=== PATIENT | male | born 1960 | race Caucasian/White ===

== ENCOUNTER → 2020-04-02 14:14 | Outpatient (BNVA) | payer OTHER, SELFPAY | PROVIDERS: PCP Internal Medicine; Visit Provider Surgery | DX: Z76.89 Persons encountering health services in other specified circumstances (principal) ==

== ENCOUNTER 2020-04-11 07:00 | Day surgery (SDC) | payer OTHER, SELFPAY ==
[2020-04-04 10:59] VITALS: BMI 31.4
--- NOTE | 2020-04-09 15:51 | P.CONAN_ITS ---
Documented by User: Antoinette Alvarado 04/09/20 15:53 HPI - Anesthesia Eval Consult details Narrative: 59yo M for Hernia Repair Inguinal with mesh PMFSH Past Medical History Medical History Basal cell carcinoma GERD (gastroesophageal reflux disease) HTN (hypertension) Hypercholesterolemia Infected hernioplasty mesh Perforation of sigmoid colon due to diverticulitis Family History Family History Paternal Aunt History of lung cancer Paternal Uncle History of lung cancer Mother History of cervical cancer Surgical History Surgical History History of appendectomy (~1994) History of bowel resection (~10/14/16) History of colonoscopy (~10/18/18) History of left inguinal hernia repair (~1999) History of left knee surgery Social History Social History Are you a primary neonatal intensive care unit nurse to a significant other at home: No Do you presently have visiting nurse or other home services: No Alcohol intake: current Alcohol intake frequency: holidays/special occasions only Alcohol type: wine Smoking Status: Never smoker Use of substances other than those prescribed or required for medical reasons: No Substance Use Type Other:: Hx Chew tobacco- not for yrs Advance Directives: No Advance Directives Information Provided: No Advance Directives on File: No Recently lost weight without trying: No Meds Allergies Allergy/AdvReac Type Severity Reaction Status Date / Time Penicillins Allergy Mild THROAT Verified 04/11/20 07:30 SWELLING Home Medications Medication Instructions Recorded Confirmed Type atorvastatin 40 mg tablet 40 mg PO DAILY 04/02/20 04/04/20 History losartan 100 mg tablet 100 mg PO DAILY 04/02/20 04/04/20 History pantoprazole 40 mg tablet,delayed 40 mg PO DAILY 04/02/20 04/04/20 History release pentoxifylline 400 mg 400 mg PO TID 04/02/20 04/04/20 History tablet,extended release Exam Exam Date and Time: April 09, 2020 1551 Height,Weight and Vital Signs: Height 6 ft 2 in Weight 111.13 kg Pertinent Lab Results Pertinent Lab Results: Laboratory Tests 12/19/19 12/19/19 08:55 08:55 WBC 5.6 Hgb 14.5 Hct 45.0 Plt Count 243 Sodium 140 Potassium 4.0 Chloride 108 BUN 14 Creatinine 0.91 Assessment and Plan Assessment Anesthesia Assessment: Chart Reviewed Documented by User: Augusta Contreras 04/11/20 07:57 PMF Past Medical History Medical History Basal cell carcinoma GERD (gastroesophageal reflux disease) HTN (hypertension) Hypercholesterolemia Infected hernioplasty mesh Perforation of sigmoid colon due to diverticulitis Family History Family History Paternal Aunt History of lung cancer Paternal Uncle History of lung cancer Mother History of cervical cancer Surgical History Surgical History History of appendectomy (~1994) History of bowel resection (~10/14/16) History of colonoscopy (~10/18/18) History of left inguinal hernia repair (~1999) History of left knee surgery Social History Social History Are you a primary neonatal intensive care unit nurse to a significant other at home: No Do you presently have visiting nurse or other home services: No Alcohol intake: current Alcohol intake frequency: holidays/special occasions only Alcohol type: wine Smoking Status: Never smoker Use of substances other than those prescribed or required for medical reasons: No Substance Use Type Other:: Hx Chew tobacco- not for yrs Advance Directives: No Advance Directives Information Provided: No Advance Directives on File: No Recently lost weight without trying: No Meds Allergies Allergy/AdvReac Type Severity Reaction Status Date / Time Penicillins Allergy Mild THROAT Verified 04/11/20 07:30 SWELLING Home Medications Medication Instructions Recorded Confirmed Type atorvastatin 40 mg tablet 40 mg PO DAILY 04/02/20 04/04/20 History losartan 100 mg tablet 100 mg PO DAILY 04/02/20 04/04/20 History pantoprazole 40 mg tablet,delayed 40 mg PO DAILY 04/02/20 04/04/20 History release pentoxifylline 400 mg 400 mg PO TID 04/02/20 04/04/20 History tablet,extended release Exam Airway Mallampati Class: II TM Dist: >3cm Neck ROM: Full Assessment and Plan Assessment Anesthesia Assessment: Anesthesia Plan Discussed and Chart Reviewed Final Anesthetic Review NPO: Yes ASA Class: II Final Preanesthetic Review: No Changes in Pt Med Stat, Meds/Allgs Chart Reviewed, Consent Obtained/Reviewed and Anes Risks/Benef Reviewed Patient Risk: Intermediate Procedure Risk: Low Assessment/Block/Sedation in SS: Assess/Block/Sedation-SS Anesthetic Plan Anesthetic Plan: GA Disposition: Standard PACU
[2020-04-11 07:20] VITALS: BP 136/84; PULSE 57; RESP 16; TEMP 36.7; O2SAT 96
[2020-04-11] MEDS: vancomycin HCL 1,000 MG in 0.9 % Sodium Chloride 250 ML 270 MG IV (07:25)
[2020-04-11] MEDS: Lactated Ringers 1,000 ML 100 ML IVCONT (07:33)
--- NOTE | 2020-04-11 07:40 | MHC.SHP ---
Pre-Procedural Eval Section A The patient is an INPATIENT: No Changes since office visit: No Cold of Flu in the past 2 weeks, No New Medical Problems and No Changes in Medication The History & Physical has been completed within 30 days and I have reviewed it.: Yes Section B Chief Complaint: Right Inguinal Hernia Allergies: Allergies Allergy/AdvReac Type Severity Reaction Status Date / Time Penicillins Allergy Mild THROAT Verified 04/11/20 07:30 SWELLING Plan Diagnosis/Plan: Unchanged Patient has been examined and remains a candidate for the planned procedure
--- NOTE | 2020-04-11 08:40 | PM.OP ---
Brief Operative Note Date of procedure: 04/11/20 Pre-op diagnosis: RIGHT INGUINAL HERNIA Post-op diagnosis: same Procedure: REPAIR OF RIGHT INGUINAL HERNIA WITH MESH Implants: PHS EXTENDED LARGE Surgeon: Octavio Samuels MD Anesthesia: GLMA Estimated blood loss (mL): 5 Pathology: other (LIPOMA OF CORD) Condition: stable Disposition: PACU
[2020-04-11 08:45] VITALS: BP 134/77; PULSE 80; RESP 16; TEMP 36.1; O2SAT 93
[2020-04-11 08:50] VITALS: BP 137/79; PULSE 68; RESP 16; O2SAT 97
[2020-04-11 08:55] VITALS: BP 136/83; PULSE 62; RESP 17; O2SAT 98
--- NOTE | 2020-04-11 08:55 | P.OP_ITS ---
Operative Note Operative Note Narrative: Preop diagnosis: Right inguinal hernia Postoperative diagnosis: Same Procedure: Repair of right inguinal hernia with mesh Surgeon: Octavio Samuels MD Fish Rod Maker: None Anesthesia: General LMA indications for procedure: 59-year-old male presenting with a new onset lump in the right groin which increases in size with lifting and straining. On examination patient is found to have reducible right inguinal hernia which increases with Valsalva and reduces with light pressure. Operative findings: Patient found to have a moderate-size indirect right inguinal hernia. This was repaired using an extended PHS mesh. Specimen: Lipoma of the cord Estimated blood loss: 5 mL Complications: None Procedure details: Patient was brought to the OR placed in a supine position. After administering general anesthesia the patient's abdomen was prepped with ChloraPrep and draped in a sterile fashion. A surgical time-out was called the consent confirmed. Patient received preoperative antibiotics and Venodyne boots were placed. Local anesthesia consisting of 0.75% Sensorcaine with epinephrine was infiltrated over the right inguinal ligament. Incision was then made with a 15 blade carried out through subcutaneous tissue past Amos's fashion up to the external oblique aponeurosis. Additional local was placed below the aponeurosis. This was then incised with a scalpel in the direction of the fibers period was widened with Metzenbaum scissors. Spermatic cord was then dissected from the surrounding inguinal canal and retracted with a Corning drain. The floor of the inguinal canal was found to be intact but a moderate- size indirect inguinal hernia was identified. Fibers of the cremasteric muscle were and a lipoma of the cord identified. This was dissected down to the internal ring and ligated with 3-0 Polysorb suture. No hernia sac was identified. Attention was then directed to the floor of the inguinal canal. Fibers of the internal oblique aponeurosis and transversalis aponeurosis were incised between Allis clamps in the preperitoneal space entered. This was then widened with open Ray-Diana sponge. An extended large PHS mesh was then obtained. The circular underlay was placed into the preperitoneal space and the overlay secured to the pubic tubercle conjoined tendon and shelving edge of the inguinal ligament. A slit was made at the mesh at the internal ring and wrapped around the spermatic cord. This was then secured to the shelving edge of the inguinal ligament using a 0 Polysorb suture. The remainder of the mesh was placed below the external oblique aponeurosis. The wounds were then irrigated with saline solution and suctioned dry. External oblique aponeurosis was then closed using a running 2 0 Polysorb suture. Amos's fashion dermis reapproximated using interrupted 3 0 Polysorb suture. Skin was then closed using a running subcuticular 4-0 Polysorb suture. Sterile dressings consisting of Steri-Strips 2 x 2 gauze and Tegaderm were then applied. The patient tolerated the procedure well. Sponge, instrument, and needle counts reported as correct. The patient was transferred to PACU in stable condition.
[2020-04-11 09:00] VITALS: BP 131/68; PULSE 62; RESP 16; O2SAT 99
[2020-04-11 09:15] VITALS: BP 137/84; PULSE 62; RESP 17; TEMP 36.3; O2SAT 94
--- NOTE | 2020-04-11 09:48 | HO.POSTANES ---
Post Anesthesia Evaluation Post Anesthesia Evaluation Vital Signs: Vital Signs Temp Pulse Resp BP Pulse Ox 04/11/20 09:15 97.3 F 62 17 137/84 94 04/11/20 09:00 62 16 131/68 99 04/11/20 08:55 62 17 136/83 98 04/11/20 08:50 68 16 137/79 97 04/11/20 08:45 96.9 F 80 16 134/77 93 04/11/20 07:20 98.1 F 57 16 136/84 96 Anesthesia: General LMA Mental Status: Awake Pain Control: Satisfactory Nausea/Vomiting: None Hydration: Adequate Anesthesia-Related Issues: No Anes. Related Issues
== END 2020-04-11 23:59 | disposition home or self-care (01) ==
PROVIDERS: PCP Internal Medicine; Visit Provider Surgery
PROC: (CPT 49505; principal; 2020-04-11 09:00)
DX: K40.90 Unilateral inguinal hernia, without obstruction or gangrene, not specified as recurrent (principal); D17.6 Benign lipomatous neoplasm of spermatic cord; Z88.0 Allergy status to penicillin
CPT/HCPCS: 49505; 88304; C1781; J1100; J2405; J3010; J3370

== ENCOUNTER → 2020-04-19 09:15 | Outpatient (BNVA) | payer OTHER, SELFPAY | PROVIDERS: PCP Internal Medicine; Visit Provider Surgery | DX: Z76.89 Persons encountering health services in other specified circumstances (principal) ==

== ENCOUNTER → 2020-05-17 09:23 | Outpatient (BNVA) | payer OTHER, SELFPAY | PROVIDERS: PCP Internal Medicine; Referring Provider Internal Medicine; Visit Provider Surgery | DX: Z76.89 Persons encountering health services in other specified circumstances (principal) ==

== ENCOUNTER 2020-06-26 07:05 | Outpatient (REF) | payer OTHER, SELFPAY ==
[2020-06-26 08:02] LABS: Alanine Aminotransferase 24 U/L (0-40); Albumin Level 4.1 g/dL (3.5-5.0); Alkaline Phosphatase 56 U/L (39-117); Aspartate Amino Transferase 15 U/L (5-37); Bilirubin Direct 0.3 mg/dL (0.0-0.5); Bilirubin Total 0.6 mg/dL (0.0-1.0); Cholesterol 123 mg/dL; HDL Cholesterol 37 mg/dL; LDL Cholesterol Calculated 72 mg/dl; Total Protein 6.7 g/dL (6.5-8.0); Triglycerides 71 mg/dL
[2020-06-26 08:16] LABS: Reflex LDLD? No
== END 2020-06-26 07:06 | disposition home or self-care (01) ==
LOC: HO.LAB 07:05
PROVIDERS: Visit Provider Internal Medicine
DX: E78.00 Pure hypercholesterolemia, unspecified (principal)
CPT/HCPCS: 36415; 80061; 80076

== ENCOUNTER 2020-12-30 10:13 | Outpatient (REF) | payer OTHER, SELFPAY ==
[2020-12-30 10:15] LABS: MANUAL DIFF FLAG NO
[2020-12-30 10:22] LABS: Basophils Percent Auto 0.5 % (0-2); Eosinophils Absolute Auto 0.2 X10*3/uL (0.0-0.4); Eosinophils Percent Auto 2.4 % (0-4); Hematocrit 45.4 % (42-52); Hemoglobin 14.9 g/dl (14.0-18.0); Imm Gran Abs Auto 0.03 X10*3/uL (0.00-0.03); Imm Gran Pct Auto 0.4 % (0.0-0.4); Lymphocytes Absolute Auto 1.3 X10*3/uL (1.2-4.9); Lymphocytes Percent Auto 16.9 % (20-40); Mean Corpuscular HGB Conc 32.8 g/dl (31.0-36.0); Mean Corpuscular Hemoglobin 29.1 pg (27.0-33.0); Mean Corpuscular Volume 88.7 fL (80-98); Monocytes Absolute Auto 0.8 X10*3/uL (0.1-1.2); Monocytes Percent Auto 10.9 % (2-11); Neutrophils Absolute Auto 5.3 X10*3/uL (2.0-8.3); Neutrophils Percent Auto 68.9 % (45-73); Platelet Count 247 X10*3/uL (160-400); Red Blood Count 5.12 X10*6/uL (4.60-5.80); Red Cell Distribution Width 12.9 % (11.0-16.0); White Blood Count 7.6 X10*3/uL (4.8-10.8)
[2020-12-30 11:17] LABS: Alanine Aminotransferase 15 U/L (0-40); Albumin Level 3.8 g/dL (3.5-5.0); Alkaline Phosphatase 58 U/L (39-117); Anion Gap 11 (12-20); Aspartate Amino Transferase 13 U/L (5-37); Bilirubin Total 0.5 mg/dL (0.0-1.0); Blood Urea Nitrogen 17 mg/dL (9-16); Calcium 8.8 mg/dL (8.4-10.2); Carbon Dioxide 26 mmol/L (22-29); Chloride 108 mmol/L (96-108); Cholesterol 117 mg/dL; Estimated Glomerular Filt Rate > 60; Glucose Fasting 98 mg/dL (60-99); HDL Cholesterol 35 mg/dL; LDL Cholesterol Calculated 75 mg/dl; Potassium 4.1 mmol/L (3.3-5.1); Sodium 141 mmol/L (135-145); Total Protein 6.2 g/dL (6.5-8.0); Triglycerides 38 mg/dL
[2020-12-30 11:26] LABS: Reflex LDLD? No
[2020-12-30 11:42] LABS: PSA,Total (Free>4and<10) 0.44 ng/mL (0.00-4.00)
== END 2020-12-30 10:14 | disposition home or self-care (01) ==
LOC: HO.LNP 10:13
PROVIDERS: Visit Provider Internal Medicine
DX: Z00.00 Encounter for general adult medical examination without abnormal findings (principal); Z12.5 Encounter for screening for malignant neoplasm of prostate; R94.5 Abnormal results of liver function studies; I10 Essential (primary) hypertension
CPT/HCPCS: 80053; 80061; 84153; 85025

== ENCOUNTER 2021-01-02 14:07 | Outpatient (REF) | payer OTHER, SELFPAY ==
[2021-01-02 14:36] LABS: Glucose Urine UA NEG (NEG); Leukocyte Esterase Urine NEG (NEG); Nitrite Urine NEG (NEG); PH 5.5 (5.0-8.0); Specific Gravity - Urine >= 1.030 (1.005-1.025); Urine Blood NEG (NEG); Urine Ketones NEG (NEG); Urine Protein NEG (NEG-TRACE)
[2021-01-02 14:39] LABS: Appearance Urine CLEAR; Color Urine YELLOW
== END 2021-01-02 14:08 | disposition home or self-care (01) ==
LOC: HO.LNP 14:07
PROVIDERS: Visit Provider Internal Medicine
DX: Z00.00 Encounter for general adult medical examination without abnormal findings (principal)
CPT/HCPCS: 81003

== ENCOUNTER 2021-06-19 11:29 | Outpatient (REF) | payer OTHER, SELFPAY ==
[2021-06-19 14:29] LABS: Binax Internal Control QC Valid; Binax Lot number: 9864; Binax Now Covid-19 Ag Negative (Negative)
== END 2021-06-19 11:30 | disposition home or self-care (01) ==
LOC: HO.LAB 11:29
PROVIDERS: Visit Provider Internal Medicine
DX: Z20.822 Contact with and (suspected) exposure to COVID-19 (principal)
CPT/HCPCS: C9803

== ENCOUNTER 2021-07-03 10:46 | Outpatient (REF) | payer OTHER, SELFPAY ==
[2021-07-03 11:58] LABS: Alanine Aminotransferase 29 U/L (0-40); Albumin Level 4.1 g/dL (3.5-5.0); Alkaline Phosphatase 69 U/L (39-117); Aspartate Amino Transferase 18 U/L (5-37); Bilirubin Direct 0.3 mg/dL (0.0-0.5); Bilirubin Total 0.6 mg/dL (0.0-1.0); Cholesterol 126 mg/dL; HDL Cholesterol 35 mg/dL; LDL Cholesterol Calculated 78 mg/dl; Triglycerides 66 mg/dL
[2021-07-03 12:06] LABS: Reflex LDLD? No
== END 2021-07-03 10:47 | disposition home or self-care (01) ==
LOC: HO.LNP 10:46
PROVIDERS: Visit Provider Internal Medicine
DX: E78.00 Pure hypercholesterolemia, unspecified (principal)
CPT/HCPCS: 80061; 80076

== ENCOUNTER 2021-12-26 10:48 | Outpatient (REF) | payer OTHER, SELFPAY ==
[2021-12-26 10:52] LABS: MANUAL DIFF FLAG NO
[2021-12-26 11:04] LABS: Basophils Absolute Auto 0.1 X10*3/uL (0.0-0.2); Basophils Percent Auto 0.7 % (0-2); Eosinophils Absolute Auto 0.2 X10*3/uL (0.0-0.4); Eosinophils Percent Auto 2.5 % (0-4); Hematocrit 46.3 % (42.0-52.0); Hemoglobin 15.4 g/dl (14.0-18.0); Imm Gran Abs Auto 0.02 X10*3/uL (0.00-0.03); Imm Gran Pct Auto 0.3 % (0.0-0.4); Lymphocytes Absolute Auto 1.3 X10*3/uL (1.2-4.9); Mean Corpuscular HGB Conc 33.3 g/dl (31.0-36.0); Mean Corpuscular Hemoglobin 29.8 pg (27.0-33.0); Mean Corpuscular Volume 89.6 fL (80.0-98.0); Monocytes Absolute Auto 0.8 X10*3/uL (0.1-1.2); Monocytes Percent Auto 11.6 % (2-11); Neutrophils Absolute Auto 4.8 x10*3/uL (2.0-8.3); Neutrophils Percent Auto 66.9 % (45-73); Platelet Count 259 X10*3/uL (160-400); Red Blood Count 5.17 X10*6/uL (4.60-5.80); White Blood Count 7.1 X10*3/uL (4.8-10.8)
[2021-12-26 11:12] LABS: Appearance Urine CLEAR; Color Urine YELLOW; Glucose Urine UA NEG (NEG); Leukocyte Esterase Urine NEG (NEG); Nitrite Urine NEG (NEG); PH 5.5 (5.0-8.0); Urine Blood TRACE (NEG); Urine Ketones NEG (NEG); Urine Protein NEG (NEG-TRACE)
[2021-12-26 11:58] LABS: Alanine Aminotransferase 22 U/L (0-40); Alkaline Phosphatase 67 U/L (39-117); Anion Gap 12 (12-20); Aspartate Amino Transferase 15 U/L (5-37); Bilirubin Total 0.6 mg/dL (0.0-1.0); Blood Urea Nitrogen 27 mg/dL (9-16); Calcium 8.8 mg/dL (8.4-10.2); Carbon Dioxide 23 mmol/L (22-29); Chloride 108 mmol/L (96-108); Cholesterol 125 mg/dL; Estimated Glomerular Filt Rate > 60; Glucose Fasting 77 mg/dL (60-99); HDL Cholesterol 31 mg/dL; LDL Cholesterol Calculated 70 mg/dl; Potassium 4.3 mmol/L (3.3-5.1); Sodium 139 mmol/L (135-145); Total Protein 6.6 g/dL (6.5-8.0); Triglycerides 123 mg/dL
[2021-12-26 12:02] LABS: RBC Urine 0 /HPF (0); WBC Urine 0 /HPF (0-4)
[2021-12-26 12:08] LABS: PSA,Total (Free>4and<10) 0.58 ng/mL (0.00-4.00)
== END 2021-12-26 10:49 | disposition home or self-care (01) ==
LOC: HO.LNP 10:48
PROVIDERS: Visit Provider Internal Medicine
DX: Z00.00 Encounter for general adult medical examination without abnormal findings (principal); Z12.5 Encounter for screening for malignant neoplasm of prostate; I10 Essential (primary) hypertension; E78.00 Pure hypercholesterolemia, unspecified
CPT/HCPCS: 80053; 80061; 81001; 84153; 85025

== ENCOUNTER 2022-03-05 11:53 | Outpatient (REF) | payer OTHER, SELFPAY ==
[2022-03-05 13:00] LABS: Blood Urea Nitrogen 18 mg/dL (9-16); Estimated Glomerular Filt Rate > 60
== END 2022-03-05 11:54 | disposition home or self-care (01) ==
LOC: HO.LNP 11:53
PROVIDERS: Visit Provider Internal Medicine
DX: R79.9 Abnormal finding of blood chemistry, unspecified (principal)
CPT/HCPCS: 82565; 84520

== ENCOUNTER 2022-07-21 10:58 | Outpatient (REF) | payer OTHER, SELFPAY ==
[2022-07-21 11:37] LABS: Alanine Aminotransferase 26 U/L (0-40); Albumin Level 3.9 g/dL (3.5-5.0); Alkaline Phosphatase 76 U/L (39-117); Aspartate Amino Transferase 15 U/L (5-37); Bilirubin Direct 0.2 mg/dL (0.0-0.5); Bilirubin Total 0.6 mg/dL (0.0-1.0); Cholesterol 128 mg/dL; HDL Cholesterol 33 mg/dL; LDL Cholesterol Calculated 80 mg/dl; Total Protein 6.4 g/dL (6.5-8.0); Triglycerides 79 mg/dL
[2022-07-21 11:52] LABS: Reflex LDLD? No
== END 2022-07-21 10:59 | disposition home or self-care (01) ==
LOC: HO.LNP 10:58
PROVIDERS: Visit Provider Internal Medicine
DX: E78.00 Pure hypercholesterolemia, unspecified (principal)
CPT/HCPCS: 80061; 80076

== ENCOUNTER 2022-12-29 10:45 | Outpatient (REF) | payer OTHER, SELFPAY ==
[2022-12-29 11:08] LABS: Basophils Percent Auto 0.2 % (0-2); Eosinophils Absolute Auto 0.1 X10*3/uL (0.0-0.4); Eosinophils Percent Auto 0.7 % (0-4); Hematocrit 47.7 % (42.0-52.0); Hemoglobin 15.6 g/dl (14.0-18.0); Imm Gran Abs Auto 0.09 X10*3/uL (0.00-0.03); Imm Gran Pct Auto 0.5 % (0.0-0.4); Lymphocytes Absolute Auto 1.1 X10*3/uL (1.2-4.9); Lymphocytes Percent Auto 6.3 % (20-40); MANUAL DIFF FLAG SCAN; Mean Corpuscular HGB Conc 32.7 g/dl (31.0-36.0); Mean Corpuscular Hemoglobin 29.5 pg (27.0-33.0); Mean Corpuscular Volume 90.2 fL (80.0-98.0); Mean Platelet Volume 10.1 fL (9.4-12.4); Monocytes Absolute Auto 1.9 X10*3/uL (0.1-1.2); Monocytes Percent Auto 10.9 % (2-11); Neutrophils Absolute Auto 14.1 x10*3/uL (2.0-8.3); Neutrophils Percent Auto 81.4 % (45-73); Platelet Count 272 X10*3/uL (160-400); Red Blood Count 5.29 X10*6/uL (4.60-5.80); Red Cell Distribution Width 13.2 % (11.0-16.0); SCAN SMEAR FLAG 1; White Blood Count 17.4 X10*3/uL (4.8-10.8)
[2022-12-29 11:10] LABS: Appearance Urine Clear; Color Urine Dark Yellow; Glucose Urine UA Negative (Negative); Leukocyte Esterase Urine Trace (Negative); Nitrite Urine Negative (Negative); Specific Gravity - Urine 1.025 (1.005-1.025); UMIC TRIGGER UACC YES; Urine Blood Negative (Negative); Urine Ketones 15 mg/dL (Negative); Urine Protein 30 (1+) mg/dL (Neg-Trace)
[2022-12-29 11:34] LABS: SLIDE REVIEW VERIFIED
[2022-12-29 11:39] LABS: Alanine Aminotransferase 19 U/L (0-40); Albumin Level 3.9 g/dL (3.5-5.0); Alkaline Phosphatase 67 U/L (39-117); Anion Gap 10 (12-20); Aspartate Amino Transferase 13 U/L (5-37); Bilirubin Total 1.8 mg/dL (0.0-1.0); Blood Urea Nitrogen 14 mg/dL (9-16); Calcium 9.7 mg/dL (8.4-10.2); Carbon Dioxide 27 mmol/L (22-29); Chloride 103 mmol/L (96-108); Cholesterol 97 mg/dL; Estimated Glomerular Filt Rate > 60; Glucose Fasting 96 mg/dL (60-99); HDL Cholesterol 39 mg/dL; LDL Cholesterol Calculated 50 mg/dl; Potassium 4.3 mmol/L (3.3-5.1); Sodium 136 mmol/L (135-145); Total Protein 7.6 g/dL (6.5-8.0); Triglycerides 44 mg/dL
[2022-12-29 11:48] LABS: PSA,Total (Free>4and<10) 0.47 ng/mL (0.00-4.00)
[2022-12-29 11:49] LABS: Bacteria Urine None Seen (None Seen); RBC Urine 0-2 /HPF (0-2); Squamous Epithelial Cell Urine 0-2 /HPF (0-2); WBC Urine 0-5 /HPF (0-5)
== END 2022-12-29 10:46 | disposition home or self-care (01) ==
LOC: HO.LNP 10:45
PROVIDERS: Visit Provider Internal Medicine
DX: Z00.00 Encounter for general adult medical examination without abnormal findings (principal); Z12.5 Encounter for screening for malignant neoplasm of prostate; E78.00 Pure hypercholesterolemia, unspecified; I10 Essential (primary) hypertension
CPT/HCPCS: 80053; 80061; 81001; 84153; 85025

== ENCOUNTER 2022-12-31 08:19 | Outpatient (AMB) | payer OTHER, SELFPAY ==
--- NOTE | 2022-12-31 08:27 | MHC.OFFVIS ---
Intake Vital Signs 12/31/22 08:37 Height 6 ft 2 in Weight 264 lb 15.93 oz BMI 34.0 BP 128/82 Blood Pressure Location Lt brachial Position Sitting Intake Visit Reasons: gallstones Intake Note: Patient is seen in office for evaluation and treatment of gallstones. Patient c/o: symptoms on and off for years, been getting worse, admits to nausea, vomit, pain in the upper chest, had imaging and blood work done Web Specialist Required: No Accompanied by: Self / Same As Patient Allergies Penicillins Allergy (Mild, Verified 12/31/22 08:31) THROAT SWELLING Medication List - Last Reconciled 12/31/22 by Octavio Samuels MD atorvastatin 40 mg PO DAILY losartan 100 mg PO DAILY pantoprazole 40 mg PO DAILY pentoxifylline ER 400 mg PO TID HPI HPI Comments History of Present Illness Details 62-year-old male patient presenting with complaints of right upper quadrant epigastric abdominal pain intermittently for several months. His most recent episode occurred on 12/26/2022. He was evaluated at [facility] and was noted to have an elevated WBC and mildly elevated bilirubin level. Workup with CT and ultrasound confirmed gallstones without evidence of acute cholecystitis. He continues to have abdominal pain in the epigastrium and right upper quadrant. He denies fever or chills. He presents to discuss possible cholecystectomy. [facility] Medical History Basal cell carcinoma GERD (gastroesophageal reflux disease) HTN (hypertension) Hypercholesterolemia Infected hernioplasty mesh Perforation of sigmoid colon due to diverticulitis Surgical History History of appendectomy (~1994) History of bowel resection (~10/14/16) History of colonoscopy (~10/18/18) History of left inguinal hernia repair (~1999) History of left knee surgery History of right inguinal hernia repair Family History Paternal Aunt History of lung cancer Paternal Uncle History of lung cancer Mother History of cervical cancer Social History Are you a primary customer care specialist to a significant other at home: No Do you presently have visiting nurse or other home services: No Alcohol intake: current Alcohol intake frequency: holidays/special occasions only Alcohol type: wine Review of Systems Const All systems reviewed & are unremarkable except as noted in HPI and below Reports poor appetite and Reports weight loss GI Reports abdominal pain, Reports nausea and Reports vomiting Details: Dark urine Skin/Breast Reports system reviewed and no additional complaints, except as documented Physical Exam Vital Signs: Last Vital Signs BP 128/82 12/31/22 08:37 BMI result Body Mass Index 34.0 Const General: cooperative and no acute distress Nutritional Appearance: well nourished Orientation/consciousness: patient oriented x3 Limitations: no limitations HEENT Head: Yes normocephalic and Yes atraumatic Ears: hearing grossly normal bilaterally Resp Effort & Inspection: normal respiratory effort, no audible wheezes, no cough and no respiratory distress Cardio Jugular venous distension: no JVD GI Inspection: Yes normal to inspection Palpation (GI): Soft to palpation, Tenderness to palpation present (GI) in the RUQ and Garland's sign positive, no guarding and not rigid Skin Other: Warm, dry, no rash Neuro General: patient oriented x3 Extrem General: Yes normal to inspection and Yes no clubbing, cyanosis or edema Assessment & Plan Assessment & Plan (1) Cholecystitis, acute with cholelithiasis: Code(s): K80.00 - Calculus of gallbladder with acute cholecystitis without obstruction Plan 62-year-old male patient presenting with progressive abdominal pain in the right upper quadrant and epigastrium occurring with fatty food intake. Workup revealed an elevated WBC and bilirubin level (mildly elevated) with gallstones within the gallbladder. Findings on examination revealed tenderness in the right upper quadrant with a positive Garland sign suggestive of acute cholecystitis. I recommended a laparoscopic or possible open cholecystectomy. After discussion of the procedure, risks, and alternatives, he consents to the laparoscopic or possible open cholecystectomy. He will be scheduled at his earliest convenience. Coding Level of Care Code Est Pt Level 4 (65240) Diagnoses Cholecystitis, acute with cholelithiasis K80.00
[2022-12-31 08:37] VITALS: BP 128/82; BMI 34.0
== END 2022-12-31 08:42 | disposition home or self-care (01) ==
PROVIDERS: PCP Internal Medicine; Visit Provider Surgery
DX: K80.00 Calculus of gallbladder with acute cholecystitis without obstruction (principal)
CPT/HCPCS: 99213

== ENCOUNTER → 2022-12-31 08:19 | Outpatient (BNVA) | payer OTHER, SELFPAY | PROVIDERS: PCP Internal Medicine; Visit Provider Surgery ==

== ENCOUNTER 2023-01-04 09:38 | Day surgery (SDC) | payer OTHER, SELFPAY ==
--- NOTE | 2023-01-01 09:36 | HO.ANESPROP2 ---
HPI - Anesthesia Eval Consult details Narrative: 62yo M for Cholecystectomy Laparoscopic, possible open PMFSH Active Problems Active Problems: All Active Problems (Updated 12/31/22 @ 08:49 by Octavio Samuels MD) Cholecystitis, acute with cholelithiasis (Acute) Right inguinal hernia (Acute) Past Medical History Medical History Basal cell carcinoma GERD (gastroesophageal reflux disease) HTN (hypertension) Hypercholesterolemia Infected hernioplasty mesh Perforation of sigmoid colon due to diverticulitis Family History Family History Paternal Aunt History of lung cancer Paternal Uncle History of lung cancer Mother History of cervical cancer Surgical History Surgical History History of appendectomy (~1994) History of bowel resection (~10/14/16) History of colonoscopy (~10/18/18) History of left inguinal hernia repair (~1999) History of left knee surgery History of right inguinal hernia repair Social History Social History Are you a primary ambulatory care coordinator to a significant other at home: No Do you presently have visiting nurse or other home services: No Alcohol intake: current Alcohol intake frequency: holidays/special occasions only Alcohol type: wine Meds Allergies Allergy/AdvReac Type Severity Reaction Status Date / Time Penicillins Allergy Mild THROAT Verified 12/31/22 08:31 SWELLING Home Medications Medication Instructions Recorded Confirmed Last Taken Type atorvastatin 40 mg tablet 40 mg PO DAILY 04/02/20 12/31/22 Unknown History losartan 100 mg tablet 100 mg PO DAILY 04/02/20 12/31/22 04/11/20 06:30 History pantoprazole 40 mg tablet,delayed 40 mg PO DAILY 04/02/20 12/31/22 04/11/20 06:30 History release pentoxifylline 400 mg 400 mg PO TID 04/02/20 05/17/20 Unknown History tablet,extended release Exam Exam Date and Time: January 01, 2023 0936 Pertinent Lab Results Pertinent Lab Results: Laboratory Tests 12/29/22 12/29/22 07:30 07:30 WBC 17.4 H Hgb 15.6 Hct 47.7 Plt Count 272 Sodium 136 Potassium 4.3 Chloride 103 Carbon Dioxide 27 BUN 14 Creatinine 1.17 Assessment and Plan Assessment Anesthesia Assessment: Chart Reviewed
[2023-01-04] VITALS (18 sets, daily range): BP systolic 136–154; BP diastolic 72–89; PULSE 73–86; RESP 16–18; TEMP 36.6–36.9; O2SAT 94–97; BMI 33.9
--- NOTE | 2023-01-04 10:24 | PC.NURSE ---
report given to judith purdy rn at this time.
[2023-01-04] MEDS: Lactated Ringers 1,000 ML 100 ML IVCONT (10:29)
--- NOTE | 2023-01-04 11:50 | P.CONAN_ITS ---
[facility] Active Problems Active Problems: All Active Problems (Updated 12/31/22 @ 08:49 by Octavio Samuels MD) Cholecystitis, acute with cholelithiasis (Acute) Right inguinal hernia (Acute) Past Medical History Medical History Basal cell carcinoma GERD (gastroesophageal reflux disease) HTN (hypertension) Hypercholesterolemia Infected hernioplasty mesh Perforation of sigmoid colon due to diverticulitis Family History Family History Paternal Aunt History of lung cancer Paternal Uncle History of lung cancer Mother History of cervical cancer Family history of problems with anesthesia: No Surgical History Surgical History History of appendectomy (~1994) History of bowel resection (~10/14/16) History of colonoscopy (~10/18/18) History of left inguinal hernia repair (~1999) History of left knee surgery History of right inguinal hernia repair Social History Social History Are you a primary intensive care medicine specialist to a significant other at home: No Do you presently have visiting nurse or other home services: No Alcohol intake: current Alcohol intake frequency: holidays/special occasions only Alcohol type: wine Patient Tobacco Use Status: Current someday Tobacco user Tobacco use type: Cigar Meds Allergies Allergy/AdvReac Type Severity Reaction Status Date / Time Penicillins Allergy Mild THROAT Verified 01/04/23 10:04 SWELLING Active Medications: Current Medications Fentanyl (Fentanyl Citrate/Pf 100 Mcg/2 Ml Vial) 25 mcg IVPUSH Q5M PRN; Protocol PRN Reason: Pain, Moderate(Pain Scale 4-6) Lactated Ringer's (Lr) 1,000 mls @ 100 mls/hr IVCONT .Q10H VANESSA Last Admin: 01/04/23 10:29 Dose: 100 mls/hr Ondansetron HCl (Ondansetron Hcl 4 Mg/2 Ml Vial) 4 mg IVPUSH ONCE PRN PRN Reason: Nausea and Vomiting Oxycodone HCl (Oxycodone Hcl Immed Release 5 Mg Tablet) 5 mg PO ONCE PRN PRN Reason: Pain, Severe (Pain Scale 7-10) Home Medications Medication Instructions Recorded Confirmed Last Taken Type atorvastatin 40 mg tablet 40 mg PO DAILY 04/02/20 01/04/23 01/04/23 History losartan 100 mg tablet 100 mg PO DAILY 04/02/20 01/04/23 01/04/23 History pantoprazole 40 mg tablet,delayed 40 mg PO DAILY 04/02/20 01/04/23 01/04/23 History release pentoxifylline 400 mg 400 mg PO TID 04/02/20 01/04/23 01/04/23 History tablet,extended release Exam Exam Date and Time: January 04, 2023 1150 Height,Weight and Vital Signs: Height 6 ft 2 in Weight 119.748 kg Last Vital Signs Temp 98.1 F 01/04/23 10:07 Pulse 76 01/04/23 10:07 Resp 18 01/04/23 10:07 BP 149/89 H 01/04/23 10:07 Pulse Ox 97 01/04/23 10:07 O2 Del Method Room Air 01/04/23 10:07 Airway Mallampati Class: IV TM Dist: >3cm Neck ROM: Full Loose/Missing/Broken Teeth: No Heart: rrr Lungs: clear Assessment and Plan Final Anesthetic Review Family History of Problems with Anesthesia: No NPO: Yes ASA Class: II Final Preanesthetic Review: No Changes in Pt Med Stat, Meds/Allgs Chart Reviewed, Consent Obtained/Reviewed and Anes Risks/Benef Reviewed Patient Risk: Intermediate Procedure Risk: Intermediate Anesthetic Plan Anesthetic Plan: GA Disposition: Standard PACU
--- NOTE | 2023-01-04 12:00 | MHC.SHP ---
Pre-Procedural Eval Section A Date of Service: 01/04/23 The patient is an INPATIENT: No Changes since office visit: Yes Patient answered all questions; No Cold of Flu in the past 2 weeks, No New Medical Problems and No Changes in Medication The History & Physical has been completed within 30 days and I have reviewed it.: Yes Section B Chief Complaint: Calculus of gallbladder with acute cholecystitis Allergies: Allergies Allergy/AdvReac Type Severity Reaction Status Date / Time Penicillins Allergy Mild THROAT Verified 01/04/23 10:04 SWELLING Plan Diagnosis/Plan: Unchanged I have reviewed the history and physical and performed a pertinent physical examination on my patient. No changes have occurred unless specified. Time Spent With Patient Time: Total time managing care of this patient today ____ minutes.
--- NOTE | 2023-01-04 12:39 | W.PM.OPN ---
Operative Note Operative Note Date of Service: 01/04/23 Narrative: Preoperative diagnosis: Acute cholecystitis, cholelithiasis Postoperative diagnosis: Same Procedure: Laparoscopic cholecystectomy Surgeon: Octavio Samuels MD Shipping Inspector: SUKHWINDER Inman Anesthesia: General endotracheal Indications for procedure: 62-year-old male patient presenting with acute onset of abdominal pain in the right upper quadrant and epigastrium radiating to the back associated with fatty food intake. Patient was evaluated emergency department. An ultrasound the abdomen confirmed gallstones within the gallbladder. Laboratories revealed an elevated WBC. Presents today for laparoscopic cholecystectomy. Operative findings: Acutely inflamed gallbladder with thickened gallbladder wall and evident rupture of the gallbladder wall into the liver. Specimen: gallbladder Estimated blood loss: 25 mL Complications: None Procedure details: Patient was brought to the OR and placed in a supine position. After administering general anesthesia the patient's abdomen was prepped with ChloraPrep and draped in a sterile fashion. Local anesthesia consisting of 0.5% Sensorcaine without epinephrine was infiltrated in a periumbilical region. A 5 mm incision was made above the umbilicus in a transverse fashion. The Veress needle was then inserted while elevating abdominal cavity with towel clips. After positive drop test the abdomen was insufflated to a pressure of 15 mm of mercury. The Veress needle was then removed and a 5 mm trocar inserted. The camera was inserted in the abdomen explored. A 12 mm trocar was then placed in the epigastrium. Two 5 mm trocars placed in the right upper quadrant by the sales assistants and salespersons. The patient was placed in reverse Trendelenburg positioning and rotated to the left. The gallbladder was grasped with the fundus and retracted cephalad by the sales assistants and salespersons. The infundibulum was then grasped and retracted away from the liver bed, also by the sales assistants and salespersons. The Dolphin dissected was then used by the surgeon to dissect the peritoneum off the infundibulum to reveal the junction with the cystic duct. Cystic artery was noted slightly medial and posterior to the cystic duct. After obtaining a critical view the cystic duct was doubly clipped and divided. The cystic artery was then doubly clipped and divided. The gallbladder was then dissected off the liver bed using electrocautery with an L hook. Hemostasis was assured all times using the electrocautery and Surgicel along the liver bed. When the gallbladder is completely dissected off the liver bed was placed in an Endo-Catch bag and brought out through the epigastric incision. The gallbladder was sent to pathology for further examination. The abdomen was then re-examined. The liver bed was irrigated and suctioned dry. No bleeding or bile leak could be identified. CO2 was then evacuated and all trocars removed. Fascia was closed at the epigastric incision using a [id number] 0 Polysorb suture. Skin was closed in all incisions using a subcuticular 4 0 Polysorb suture by both the surgeon and sales assistants and salespersons. Sterile dressings consisting of Steri-Strips, 2 x 2 gauze, and Tegaderm were then applied. The patient tolerated the procedure well. Sponge instrument and needle counts reported as correct. The patient was transferred to PACU in stable condition.
[2023-01-04] MEDS: oxyCODONE HCl Immed Release 5 MG TABLET PO (14:05)
[2023-01-04] MEDS: fentaNYL citrate/PF 100 MCG/2 ML VIAL 25 MCG IVPUSH ×4 (14:06→14:45)
[2023-01-04] MEDS: Acetaminophen 1,000 MG/100 ML PIGGYBACK 400 MG IV (14:40)
[2023-01-04] MEDS: ondansetron HCL 4 MG/2 ML VIAL IVPUSH (16:37)
== END 2023-01-04 17:11 | disposition home or self-care (01) ==
PROVIDERS: PCP Internal Medicine; Visit Provider Surgery
PROC: 0FT44ZZ Resection of Gallbladder, Percutaneous Endoscopic Approach (ICD-10-PCS; CPT 47562; principal; 2023-01-04 11:50)
DX: K80.12 Calculus of gallbladder with acute and chronic cholecystitis without obstruction (principal); K82.A1 Gangrene of gallbladder in cholecystitis; K21.9 Gastro-esophageal reflux disease without esophagitis; I10 Essential (primary) hypertension; Z90.49 Acquired absence of other specified parts of digestive tract; Z87.19 Personal history of other diseases of the digestive system; Z79.899 Other long term (current) drug therapy; Z88.0 Allergy status to penicillin; F17.290 Nicotine dependence, other tobacco product, uncomplicated
CPT/HCPCS: 47562; 88304; J0131; J0330; J1100; J2250; J2405; J2550; J2795; J3010

== ENCOUNTER → 2023-01-04 09:38 | Outpatient (BNV) | payer OTHER, SELFPAY | PROVIDERS: PCP Internal Medicine; Visit Provider Surgery | DX: K80.00 Calculus of gallbladder with acute cholecystitis without obstruction (principal) | CPT/HCPCS: 47562 ==

== ENCOUNTER 2023-01-14 13:11 | Outpatient (AMB) | payer OTHER, SELFPAY ==
--- NOTE | 2023-01-14 13:19 | MHC.OFFVIS ---
Intake Vital Signs 01/14/23 13:22 Height 6 ft 2 in Weight 261 lb BMI 33.5 BP 127/75 Blood Pressure Location Lt brachial Position Sitting Pulse 75 Intake Visit Reasons: S/P lap yohana Intake Note: Patient is seen in office for post op assessment post laparoscopic cholecystectomy. 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 He tolerated the procedure well and feels well today. He denies any nausea, vomiting, fever or chills. He has minimal tenderness at the epigastric incision. [facility] Medical History Basal cell carcinoma GERD (gastroesophageal reflux disease) HTN (hypertension) Hypercholesterolemia Infected hernioplasty mesh Perforation of sigmoid colon due to diverticulitis Surgical History History of appendectomy (1994) History of bowel resection (10/14/16) History of colonoscopy (10/18/18) History of left inguinal hernia repair (1999) History of left knee surgery History of right inguinal hernia repair (01/04/23) Family History Paternal Aunt History of lung cancer Paternal Uncle History of lung cancer Mother History of cervical cancer Social History Are you a primary care support representative to a significant other at home: No Do you presently have visiting nurse or other home services: No Alcohol intake: current Alcohol intake frequency: holidays/special occasions only Alcohol type: wine Patient Tobacco Use Status: Current someday Tobacco user Tobacco use type: Cigar Physical Exam Vital Signs: Last Vital Signs Pulse 75 01/14/23 13:22 BP 127/75 01/14/23 13:22 BMI result Body Mass Index 33.5 Const General: no acute distress Nutritional Appearance: well nourished Orientation/consciousness: patient oriented x3 Limitations: no limitations Resp Effort & Inspection: normal respiratory effort GI Other: Trocar incisions are clean, dry, and intact without redness or discharge. No hernia noted with Valsalva maneuvers. Skin Other: Warm, dry, no rash, normal color Neuro General: patient oriented x3 Assessment & Plan Assessment & Plan (1) Cholecystitis, acute with cholelithiasis: Code(s): K80.00 - Calculus of gallbladder with acute cholecystitis without obstruction Plan 62-year-old male patient status post laparoscopic cholecystectomy for acute cholecystitis due to cholelithiasis. He tolerated the procedure well and his wounds are healing nicely. She should continue to avoid lifting greater than 10 lb for the next week. He should follow up as needed. Coding Level of Care Code Global (05551) Diagnoses Cholecystitis, acute with cholelithiasis K80.00
[2023-01-14 13:22] VITALS: BP 127/75; PULSE 75; BMI 33.5
== END 2023-01-14 13:38 | disposition home or self-care (01) ==
PROVIDERS: PCP Internal Medicine; Visit Provider Surgery
DX: K80.00 Calculus of gallbladder with acute cholecystitis without obstruction (principal)
CPT/HCPCS: 99024

== ENCOUNTER → 2023-01-14 13:11 | Outpatient (BNVA) | payer OTHER, SELFPAY | PROVIDERS: PCP Internal Medicine; Visit Provider Surgery ==

== ENCOUNTER 2023-07-30 07:34 | Outpatient (REF) | payer OTHER, SELFPAY ==
[2023-07-30 08:59] LABS: Alanine Aminotransferase 30 U/L (0-40); Alkaline Phosphatase 66 U/L (39-117); Aspartate Amino Transferase 19 U/L (5-37); Bilirubin Direct 0.3 mg/dL (0.0-0.5); Bilirubin Total 0.6 mg/dL (0.0-1.0); Cholesterol 128 mg/dL (<200); HDL Cholesterol 35 mg/dL (>40); LDL Cholesterol Calculated 81 mg/dL (<100); Total Protein 7.1 g/dL (6.5-8.0); Triglycerides 63 mg/dL (<150)
[2023-07-30 09:36] LABS: Reflex LDLD? No
== END 2023-07-30 07:35 | disposition home or self-care (01) ==
LOC: HO.LAB 07:34
PROVIDERS: PCP Internal Medicine; Visit Provider Internal Medicine
DX: E78.00 Pure hypercholesterolemia, unspecified (principal)
CPT/HCPCS: 36415; 80061; 80076

== ENCOUNTER 2024-01-27 10:43 | Outpatient (REF) | payer OTHER, SELFPAY ==
[2024-01-27 10:46] LABS: MANUAL DIFF FLAG NO
[2024-01-27 11:10] LABS: Appearance Urine Clear; Color Urine Yellow; Glucose Urine UA Negative (Negative); Leukocyte Esterase Urine Negative (Negative); Nitrite Urine Negative (Negative); PH 5.5 (5.0-9.0); Specific Gravity - Urine 1.025 (1.005-1.025); Urine Blood Negative (Negative); Urine Ketones Negative (Negative); Urine Protein Negative (Neg-Trace)
[2024-01-27 11:11] LABS: Basophils Percent Auto 0.6 % (0-2); Eosinophils Absolute Auto 0.2 X10*3/uL (0.0-0.4); Eosinophils Percent Auto 2.5 % (0-4); Hematocrit 46.7 % (42.0-52.0); Hemoglobin 15.8 g/dl (14.0-18.0); Imm Gran Abs Auto 0.02 X10*3/uL (0.00-0.03); Imm Gran Pct Auto 0.3 % (0.0-0.4); Lymphocytes Absolute Auto 1.2 X10*3/uL (1.2-4.9); Lymphocytes Percent Auto 19.4 % (20-40); Mean Corpuscular HGB Conc 33.8 g/dl (31.0-36.0); Mean Corpuscular Hemoglobin 29.8 pg (27.0-33.0); Mean Corpuscular Volume 88.1 fL (80.0-98.0); Mean Platelet Volume 9.7 fL (9.4-12.4); Monocytes Absolute Auto 0.6 X10*3/uL (0.1-1.2); Monocytes Percent Auto 9.3 % (2-11); Neutrophils Absolute Auto 4.3 x10*3/uL (2.0-8.3); Neutrophils Percent Auto 67.9 % (45-73); Platelet Count 260 X10*3/uL (160-400); Red Cell Distribution Width 13.3 % (11.0-16.0); White Blood Count 6.3 X10*3/uL (4.8-10.8)
[2024-01-27 11:16] LABS: Bacteria Urine None Seen (None Seen); Hyaline Casts Urine 0-2 /LPF (0-2); RBC Urine 0-2 /HPF (0-2); Squamous Epithelial Cell Urine 0-2 /HPF (0-2); WBC Urine 0-5 /HPF (0-5)
[2024-01-27 11:27] LABS: Alanine Aminotransferase 35 U/L (0-40); Albumin Level 4.1 g/dL (3.5-5.0); Alkaline Phosphatase 68 U/L (39-117); Anion Gap 11 (12-20); Aspartate Amino Transferase 23 U/L (5-37); Bilirubin Total 0.7 mg/dL (0.0-1.0); Blood Urea Nitrogen 27 mg/dL (9-16); Calcium 9.6 mg/dL (8.4-10.2); Carbon Dioxide 23 mmol/L (22-29); Chloride 111 mmol/L (96-108); Cholesterol 145 mg/dL (<200); Estimated Glomerular Filt Rate > 60; Glucose Fasting 101 mg/dL (60-99); HDL Cholesterol 35 mg/dL (>40); LDL Cholesterol Calculated 97 mg/dL (<100); Sodium 141 mmol/L (135-145); Total Protein 7.2 g/dL (6.5-8.0); Triglycerides 67 mg/dL (<150)
[2024-01-27 11:46] LABS: PSA,Total (Free>4and<10) 0.51 ng/mL (0.00-4.00)
== END 2024-01-27 10:44 | disposition home or self-care (01) ==
LOC: HO.LNP 10:43
PROVIDERS: Visit Provider Internal Medicine
DX: Z00.00 Encounter for general adult medical examination without abnormal findings (principal); I10 Essential (primary) hypertension; E78.00 Pure hypercholesterolemia, unspecified; Z12.5 Encounter for screening for malignant neoplasm of prostate
CPT/HCPCS: 80053; 80061; 81001; 84153; 85025

== ENCOUNTER 2024-02-25 10:59 | Outpatient (REF) | payer OTHER, SELFPAY ==
[2024-02-25 11:53] LABS: Blood Urea Nitrogen 18 mg/dL (9-16)
== END 2024-02-25 11:00 | disposition home or self-care (01) ==
LOC: HO.LNP 10:59
PROVIDERS: Visit Provider Internal Medicine
DX: R79.9 Abnormal finding of blood chemistry, unspecified (principal)
CPT/HCPCS: 84520

== ENCOUNTER 2024-07-27 10:39 | Outpatient (REF) | payer BC, SELFPAY ==
[2024-07-27 11:14] LABS: Cholesterol 127 mg/dL (<200); HDL Cholesterol 35 mg/dL (>40); LDL Cholesterol Calculated 80 mg/dL (<100); Triglycerides 64 mg/dL (<150)
--- OUTSIDE RECORDS SUMMARY | 2024-07-27 11:49 | XMS_ITS ---
Author Organization Terrance Heard MD Address [address] [place] [phone] Care Team Providers Care Welfare Eligibility Interviewer Name Role Phone FélixMeagann Primary Care Provider REASON FOR VISIT FASTING LIPIDS Encounters Encounter Location Date Provider Diagnosis Terrance Heard MD [address] [place] [phone] 07/27/2024 Terrance Heard Pure hypercholestero lemia E78.00 Assessments Encounter Date Diagnosis (ICD Code) Assessment Notes Treatment Notes Treatment Clinical Notes Section Notes 07/27/2024 Pure hypercholesterolemia (ICD-10 - E78.00) Plan Of Treatment Pending Test Test Name Order Date Liver Panel 07/27/2024 Lipid Panel with Reflex 07/27/2024 Next Appt Details Provider Name:Terrance cortez, 08/03/2024 07:45:00 AM, [address], [address], [place], [place], [phone], Provider Name:Terrance cortez, 02/01/2025 07:00:00 AM, [address], [address], [place], [place], [phone], Provider Name:Terrance Perla ier, 02/08/2025 08:30:00 AM, [address], [address], [place], [place], [phone], Progress Notes * Denny VASQUEZ ADOB: (63 yo M)Acc No.[id number]:07/27/2024 Progress Note Patient:?Denny VASQUEZ A Provider:?Terrance Heard MD :1960???Age:63 Y???Sex:Male Seng e:07/27/2024 Address:[address] [place] [address] [facility] Subjective: * Chief Complaints: * ???1. FASTING LIPIDS. * Medical History:? Objective: * Vitals:? Assessment: * Assessment: 1.?Pure hypercholesterolemia - E78.00 (Primary)??? Plan: * Treatment: * Procedure Codes:?82961 VENIP UNCT, ROUTINE* * * The named appointment provid er may or may not be the originator of this progress note, and it is not deemed complete until electronically signed by the appointment provider. Sign off status: Pending * Provider:?Terrance Heard MD Date:?0 07/27/2024 Generated for Maria R sahu/Samara/eTsimbasmitting on:?07/27/2024 11:49 AM EST
--- OUTSIDE RECORDS SUMMARY | 2024-07-27 11:50 | XMS_ITS ---
Author Organization Terrance Heard MD Address [address] [place] [phone] Care Team Providers Care Wafer Fabricator Name Role Kaylie Félix Terrance Primary Care Provider [phone] REASON FOR VISIT referral Encounters Encounter Location Date Provider Diagnosis Terrance Heard MD [address] [place] [phone] 07/03/2024 Terrance Heard Plan Of Treatment Next Appt Details Provider Name:Terrance cortez, 08/03/2024 07:45:00 AM, [address] [place] [address], Suite [facility], [place], [place], [phone], Provider Name:Terrance cortez, 02/01/2025 07:00:00 AM, [address] [place] [address], Suite [facility], [place], [place], [phone], Provider Name:Terrance cortez, 02/08/2025 08:30:00 AM, [address] [place] [address], [address], [place], [place], [phone], Progress Notes * HEMADenny DOMINGUEZ ADOB: 2 (63 yo M)Acc No.[id number]:07/03/2024 Patient:?Denny VASQUEZ :1960???Age:63 Y???Sex:Male Address:[address] [place] [address] [place] [address] * true * Date:? Generated for Summeri adelina/Samara/eTransmitting on:?07/27/2024 11:50 AM EST
--- OUTSIDE RECORDS SUMMARY | 2024-07-27 11:50 | XMS_ITS ---
Author Organization Terrance Heard MD Address [address] [place] [phone] Care Team Providers Care Icing Maker Name Role Kaylie FélixMeagann Primary Care Provider REASON FOR VISIT wt loss clinic location Encounters Encounter Location Date Provider Diagnosis Terrance Heard MD [address] [place] [phone] 06/29/2024 Terrance Heard Plan Of Treatment Next Appt Details Provider Name:Terrance cortez, 08/03/2024 07:45:00 AM, [address] [place] [address], [place] [address], [place], [place], [phone], Provider Name:Terrance cortez, 02/01/2025 07:00:00 AM, [address] [place] [address], [address], [phone], Provider Name:Terrance cortez, 02/08/2025 08:30:00 AM, [address] [place] [address], [address], [place], [phone], Progress Notes * Denny VASQUEZ ADOB: 2 (63 yo M)Acc No.[id number]:06/29/2024 Patient:?Denny VASQUEZ :1960???Age:63 Y???Sex:Male Address:[address] [place] [address] [place] [address] * true * Date:? Generated for Maria R sahu/Samara/eTransmitting on:?07/27/2024 11:49 AM EST
[2024-07-27 12:01] LABS: Reflex LDLD? No
== END 2024-07-27 10:40 | disposition home or self-care (01) ==
LOC: HO.LNP 10:39
PROVIDERS: Visit Provider Internal Medicine
DX: E78.00 Pure hypercholesterolemia, unspecified (principal)
CPT/HCPCS: 80061

== ENCOUNTER 2025-02-01 09:32 | Outpatient (REF) | payer BC, SELFPAY ==
--- OUTSIDE RECORDS SUMMARY | 2024-07-27 03:00 | XMS_ITS ---
Author Organization Terrance Heard MD Address [address] [place] [phone] Care Team Providers Care Multiple Effect Evaporator Operator Name Role Phone Terrance Heard Primary Care Provider Results Component Value Reference Range Notes Lipid Panel with Reflex Reviewed date:07/27/2024 12:48:15 PM Interpretation: Performing Lab:[facility], [address] [place] [phone] Notes/Report: Triglycerides 64 <150 mg/dL Desirable Triglyceride: [...] Date Provider Diagnosis Terrance Heard MD [address] [facility] [address] [place], [place] [phone] 07/27/2024 Terrance Heard Pure hypercholestero lemia E78.00 Assessments Encounter Date Diagnosis (ICD Code) Assessment Notes Treatment Notes Treatment Clinical Notes Section Notes 07/27/2024 Pure hypercholesterolemia (ICD-10 - E78.00) Plan Of Treatment Pending Test Test Name Order Date Liver Panel 07/27/2024 Next Appt Details Provider Name:Terrance Perla ier, 02/08/2025 08:30:00 AM, [address] [place] [address], [address], [place], [place], [phone], Progress Notes * Denny VASQUEZ ADOB: 2 (64 yo M)Acc No.[id number]:07/27/2024 Progress Note Patient: Denny TORREZ Provider: Ekaterina Heard MD :1960 A ge:63 Y S ex:Male Date:07/27/2024 Address:[address] [place], [place] [phone] Subjective: * Chief Complaints: * 1 . [...] Date: 0 07/27/2024 Generated for Maria R sahu/Samara/Mitziitting on: 0 02/01/2025 10:37 AM EDT
--- OUTSIDE RECORDS SUMMARY | 2024-08-03 03:45 | XMS_ITS ---
Author Organization Terrance Heard MD Address [address] [place] [phone] Care Team Providers Care Audio Visual Aide Name Role Phone Terrance Heard Primary Care [...] Location Date Provider Diagnosis Terrance Heard MD [address] [place] [address] [place] [phone] 08/03/2024 Terrance Heard Essential hypertensi on I10 [...] current regiment Next Appt Details Provider Name:Terrance Perla ier, 02/08/2025 08:30:00 AM, [address] [place] [address], [address], [place], [place], [phone], Progress Notes * Denny VASQUEZ ADOB: 2 (63 yo M)Acc No.[id number]:08/03/2024 Progress Notes Patient: Denny TORREZ Provider: Ekaterina Heard MD :1960 A ge:63 Y S ex:Male Date:08/03/2024 Address:[address] [place], [place] [phone] Subjective: * Chief Complaints: * 6 MO [...] Date: 0 08/03/2024 Generated for Maria R sahu/Samara/Jazminsmitting on: 0 02/01/2025 10:38 AM EDT History and Physical Notes * HPI (History [...]
--- OUTSIDE RECORDS SUMMARY | 2025-02-01 03:00 | XMS_ITS ---
Author Organization Terrance Heard MD Address [address] [place] [phone] Care Team Providers Care Workers' Compensation Hearings Officer Name Role Phone Terrance Heard Primary Care Provider Results Component Value Reference Range Notes Complete Blood Count Auto Di ff (Not yet reviewed by provider) Interpretation: Performing Lab:[facility], [address] [place] [phone] Notes/Report: White Blood Count 6.6 4.8-10.8 X10*3/uL [...] NRBC Abs Auto 0.000 0.0-0.012 X10*3/uL Comprehensive Dell. Panel Fa st (Not yet reviewed by provider) Interpretation: Performing Lab:[facility], [address] [place] [phone] Notes/Report: Sodium 139 135-145 mmol/L Potassium 4.3 [...] Alkaline Phosphatase 62 39-117 U/L Lipid Panel (Not yet reviewe d by provider) Interpretation: Performing Lab:[facility], [address] [place] [phone] Notes/Report: Triglycerides 49 <150 mg/dL Desirable Triglyceride: [...] in patients with liver disease. PSA,Total (Free>4and<10) (No t yet reviewed by provider) Interpretation: Performing Lab:[facility], [address] [place] [phone] Notes/Report: PSA,Total (Free>4and<10) 1.06 0.00-4.00 ng/mL A [...] Immunoassay (CMIA) UA ClnCatch+Micro w/rflx Cul t (Not yet reviewed by provider) Interpretation: Performing Lab:[facility], [address] [place] [phone] Notes/Report: Urine, Clean Catch Color Urine Yellow Appearance Urine Clear PH 6.0 5.0-9.0 Glucose Urine UA Negative Negative mg/dL Urine Blood Negative Negative Specific [place] - Urine 1.025 1.005-1.025 Urine Protein Negative [...] Location Date Provider Diagnosis Terrance Heard MD [address] [place] [address] Drive [address] [place] [phone] 02/01/2025 Terrance Heard Blood tests for rout [...] Treatment Pending Test Test Name Order Date Complete Blood Count Auto Diff 5 Comprehensive Dell. Panel Fast 5 Lipid Panel 02/01/2025 PSA,Total (Free>4and<10) 02/01/2025 UA ClnCatch+Micro w/rflx Cult 02/01/2025 Next Appt Details Provider Name:Terrance Perla ier, 02/08/2025 08:30:00 AM, [address] [place] [address] Drive, [address], [place], [place], [phone], Progress Notes * Denny VASQUEZ ADOB: [birth year] (64 yo M)Acc No.[id number]:02/01/2025 Progress Note Patient: Denny TORREZ Provider: Ekaterina Heard MD :1960 A ge:64 Y S ex:Male Date:02/01/2025 Address:[address] [place] [address] [phone] Subjective: * Chief Complaints: * 1 . [...] - 02/01/2025 07:00 AM) L AB: Comprehensive Dell. Panel Fast (Collection Date & Time - [...] - 02/01/2025 07:00 AM) L AB: Comprehensive Dell. Panel Fast (Collection Date & Time - [...] - 02/01/2025 07:00 AM) L AB: Comprehensive Dell. Panel Fast (Collection Date & Time - [...] Pending * Provider: Ekaterina Heard MD Date: 02/01/2025 Generated for Maria R sahu/Samara/Mitziitting on: 02/01/2025 10:38 AM EDT
[2025-02-01 09:36] LABS: MANUAL DIFF FLAG NO
[2025-02-01 09:44] LABS: Hematocrit 44.6 % (42.0-52.0); Hemoglobin 14.8 g/dl (14.0-18.0); Imm Gran Abs Auto 0.02 X10*3/uL (0.00-0.03); Imm Gran Pct Auto 0.3 % (0.0-0.4); Lymphocytes Absolute Auto 1.3 X10*3/uL (1.2-4.9); Mean Corpuscular HGB Conc 33.2 g/dl (31.0-36.0); Mean Corpuscular Hemoglobin 30.0 pg (27.0-33.0); Mean Corpuscular Volume 90.3 fL (80.0-98.0); NRBC Abs Auto 0.000 X10*3/uL (0.0-0.012); NRBC Pct Auto 0.0 /100WBC (0.0-0.2); Platelet Count 262 X10*3/uL (160-400); Red Blood Count 4.94 X10*6/uL (4.60-5.80); White Blood Count 6.6 X10*3/uL (4.8-10.8)
[2025-02-01 09:49] LABS: Appearance Urine Clear; Glucose Urine UA Negative (Negative); PH 6.0 (5.0-9.0); Specific Gravity - Urine 1.025 (1.005-1.025)
[2025-02-01 10:07] LABS: Alanine Aminotransferase 32 U/L (0-40); Albumin Level 4.2 g/dL (3.5-5.0); Alkaline Phosphatase 62 U/L (39-117); Anion Gap 9 (12-20); Aspartate Amino Transferase 25 U/L (5-37); Blood Urea Nitrogen 25 mg/dL (9-16); Calcium 9.2 mg/dL (8.4-10.2); Carbon Dioxide 28 mmol/L (22-29); Chloride 106 mmol/L (96-108); Cholesterol 117 mg/dL (<200); Estimated Glomerular Filt Rate > 60; HDL Cholesterol 33 mg/dL (>40); Potassium 4.3 mmol/L (3.3-5.1); Sodium 139 mmol/L (135-145); Total Protein 7.0 g/dL (6.5-8.0); Triglycerides 49 mg/dL (<150)
[2025-02-01 10:30] LABS: PSA,Total (Free>4and<10) 1.06 ng/mL (0.00-4.00)
--- OUTSIDE RECORDS SUMMARY | 2025-02-01 10:38 | XMS_ITS | Patient Health Record ---
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 Name Role Phone Terrance Heard Primary Care Provider Unavailab ZACK Bautista Unavailable [phone] IMAN PIÑA Unavailable [phone] Allergies Allergen (clinical drug ingredient) Drug/Non Drug Allergy documented on EMR Reaction Allergy Type Onset Date Status Penicillin anaphylaxis Drug Allergy Acti ve Reason For Referral Diagnosis 1 Abnormal weight gain (R63.5) Referred Organization [facility] [address] Referred Provider ZACK REY Referred Address [address] [facility] [address] ,[place], [place],[address],[place] Referred Provider Specialty Weight Manag ement Referral Priority Routine Medications Medication SIG (Take, Route, Frequency, Duration) Notes Start Date End Date Status Pantoprazole Sodium 40 MG TAKE ONE TABLE T BY MOUTH EVERY DAY Oral; Duration: 30 Days Active Losartan Potassium 100 MG Oral; Duration: 60 Days Active Atorvastatin Calcium 40 MG Oral; Duration: 60 Days Active Zepbound 7.5 MG/0.5ML Inject 7.5mg Subcu taneous weekly; Duration: 30 days Active Zepbound 7.5 MG/0.5ML Inject 7.5mg Subcu taneous weekly; Duration: 30 days Active Problems Problem Type SNOMED Code ICD Code Onset Dates Problem Status W/U Status Risk Notes Problem Essential hypertension (33121034) Essential hypertension (I10) Active confirmed Problem Pure hypercholesterolemia (642675416) Pure hypercholesterolemia (E78.00) Active confirmed Problem Obesity (183145792) Obesity (BMI 30-39.9) (E66.9) Active confirmed Problem Body mass index 30+ - obesity (444531899) BMI 30.0-30.9,adult (Z68.30) Active confirmed Problem Gastroesophageal reflux disease (638885078) GERD (gastroesophageal reflux disease) (K21.9) Active confirmed Problem Hyperlipidemia (57443932) Hyperlipidemia (E78.5) Active confirmed Vital Signs Heart Rate 66 /min 01/19/2025 Blood pressure diastolic 80 mm Hg 01/19/2025 Oximetry 98 % 01/19/2025 Height 73 in 01/19/2025 Blood pressure systolic 122 mm Hg 01/19/2025 Weight 234 lbs 01/19/2025 BMI 30.87 kg/m2 01/19/2025 Encounters Encounter Location Date Provider Diagnosis [facility] [address] [address] 08/03/2024 IMAN AYANA Obesity (BMI 30-39.9 ) E66.9 ; BMI 38.0-38.9,adult Z68.38 ; Essential hypertension I10 ; Pure hypercholesterolemia E78.00 and Nutritional counseling Z71.3 [facility] [address] [place] [id number] 09/04/2024 IMAN AYANA Obesity (BMI 30-39.9 ) E66.9 ; BMI 36.0-36.9,adult Z68.36 ; Essential hypertension I10 ; Pure hypercholesterolemia E78.00 and Nutritional counseling Z71.3 [facility] [address] [address] 10/03/2024 IMAN AYANA Obesity (BMI 30-39.9 ) E66.9 ; BMI 35.0-35.9,adult Z68.35 ; Essential hypertension I10 ; Pure hypercholesterolemia E78.00 and Nutritional counseling Z71.3 [facility] [address] [place] [address] 11/02/2024 IMAN AYANA Obesity (BMI 30-39.9 ) E66.9 ; BMI 33.0-33.9,adult Z68.33 ; Essential hypertension I10 ; Pure hypercholesterolemia E78.00 and Nutritional counseling Z71.3 [facility] [address] [place] [id number] 12/07/2024 IMAN AYANA Obesity (BMI 30-39.9 ) E66.9 ; BMI 32.0-32.9,adult Z68.32 ; Essential hypertension I10 ; Pure hypercholesterolemia E78.00 and Nutritional counseling Z71.3 [facility] [address] [place] [address] 01/19/2025 IMAN PIÑA Obesity (BMI 30-39.9 ) E66.9 ; BMI 30.0-30.9,adult Z68.30 ; Essential hypertension I10 ; Pure hypercholesterolemia E78.00 and Nutritional counseling Z71.3 [facility] [address] [facility] [address] [place] [address] 08/03/2024 IMAN PIÑA [facility] [address] [place] [address] 10/03/2024 ZACK REY Assessments Encounter Date Diagnosis (ICD Code) Assessment Notes Treatment Notes Treatment Clinical Notes Section Notes 08/03/2024 Obesity (BMI 30-39.9 ) (ICD-10 - E66.9) Denny is a 63-year-old male with a PMH of HTN, HLD, GERD that presents for weight management consult. Patient was reassured and welcomed to the practice. Discussed [facility] holistic and medical approach to weight loss with emphasis on lifestyle modification. Patient is educated that a healthy lifestyle aids in combating obesity as well as reducing the risk of developing obesity-related medical complications including but not limited to diabetes and cardiovascular disease. Detailed education provided about taking steps to initiate sustainable lifestyle changes including incorporating regular physical activity, making healthy diet choices, and prioritizing mental health. Information provided about literature including The Food Rules by Rachid Morley and Eat Fat Get Lean by Dr Jose Alfredo Michelle. Handouts including lifestyle checklist, protein content of food, low calorie snacks, and cholesterol information sheet provided. Diagnostic testing/ SECA scale offered. Discussed the importance of regular SECA scale measurements to ensure healthy weight loss. 08/03/24: Weight: 274, BMI: 38. Reviewed SECA/goals for implementing sustainable lifestyle changes. Patient is encouraged to increase physical activity, goal 8-10k steps/day. Also discussed the importance of strength training with proper safety/body mechanics for maintenance of muscle mass/bone health. Patient encouraged to drink 60-80oz water/day. Reviewed nutrition, recommending food diary x 1 week to ensure adequate caloric/protein intake. Goal of 100g protein/day. Reviewed risks, benefits, and side effects of weight management medications including phentermine, Topamax, Contrave, metformin, and GLP-1 agonist. Patient interested in GLP-1 agonist Zepbound. Denies personal/family history of thyroid cancer/M EN syndrome. Rx for Zepbound 2.5 mg SC weekly sent to pharmacy. Reviewed proper use, administration expectations for PA process/insurance coverage. After consultation and careful review of medical history, this patient would benefit from Zepbound based off of the following criteria met: Patient is over the age of 18 with a BMI of 38. Additional comorbidities include HTN, HLD. Patient has trialed other methods of weight loss including improving diet and exercise without success. This medication is prescribed by or in consultation with a board-certified obesity and weight management physician (Dr. Neel Davies or Dr. Teto Davies). All questions answered to the patient's satisfaction. Patient demonstrates understanding of diagnosis and treatments discussed. Follow-up at next scheduled appointment, sooner should any questions/concerns arise. Case discussed with collaborating physician Clark Davies who has reviewed the assessment/plan. Chart, medications, labs, and vital signs reviewed. Dictation completed with the use of [employer] voice recognition software, prone to medical misidentifications and grammatical errors. All errors are unintentional. Although the practitioner does try to identify and correct errors, some may be present. Please do not hesitate to contact the practitioner for clarification. Total time was 60 minutes spent with >50% on coordination of care and patient education. 08/03/2024 BMI 38.0-38.9,adult (ICD-10 - Z68.38) Denny is a 63-year-old male with a PMH of HTN, HLD, GERD that presents for weight management consult. Patient was reassured and welcomed to the practice. Discussed [facility] holistic and medical approach to weight loss with emphasis on lifestyle modification. Patient is educated that a healthy lifestyle aids in combating obesity as well as reducing the risk of developing obesity-related medical complications including but not limited to diabetes and cardiovascular disease. Detailed education provided about taking steps to initiate sustainable lifestyle changes including incorporating regular physical activity, making healthy diet choices, and prioritizing mental health. Information provided about literature including The Food Rules by Rachid Morley and Eat Fat Get Lean by Dr Jose Alfredo Michelle. Handouts including lifestyle checklist, protein content of food, low calorie snacks, and cholesterol information sheet provided. Diagnostic testing/ SECA scale offered. Discussed the importance of regular SECA scale measurements to ensure healthy weight loss. 08/03/24: Weight: 274, BMI: 38. Reviewed SECA/goals for implementing sustainable lifestyle changes. Patient is encouraged to increase physical activity, goal 8-10k steps/day. Also discussed the importance of strength training with proper safety/body mechanics for maintenance of muscle mass/bone health. Patient encouraged to drink 60-80oz water/day. Reviewed nutrition, recommending food diary x 1 week to ensure adequate caloric/protein intake. Goal of 100g protein/day. Reviewed risks, benefits, and side effects of weight management medications including phentermine, Topamax, Contrave, metformin, and GLP-1 agonist. Patient interested in GLP-1 agonist Zepbound. Denies personal/family history of thyroid cancer/M EN syndrome. Rx for Zepbound 2.5 mg SC weekly sent to pharmacy. Reviewed proper use, administration expectations for PA process/insurance coverage. After consultation and careful review of medical history, this patient would benefit from Zepbound based off of the following criteria met: Patient is over the age of 19 with a BMI of 38. Additional comorbidities include HTN, HLD. Patient has trialed other methods of weight loss including improving diet and exercise without success. This medication is prescribed by or in consultation with a board-certified obesity and weight management physician (Dr. Neel Davies or Dr. Teto Davies). All questions answered to the patient's satisfaction. Patient demonstrates understanding of diagnosis and treatments discussed. Follow-up at next scheduled appointment, sooner should any questions/concerns arise. Case discussed with collaborating physician Clark Davies who has reviewed the assessment/plan. Chart, medications, labs, and vital signs reviewed. Dictation completed with the use of [employer] voice recognition software, prone to medical misidentifications and grammatical errors. All errors are unintentional. Although the practitioner does try to identify and correct errors, some may be present. Please do not hesitate to contact the practitioner for clarification. Total time was 60 minutes spent with >50% on coordination of care and patient education. 09/04/2024 Obesity (BMI 30-39.9 ) (ICD-10 - E66.9) Denny is a 63-year-old male with a PMH of HTN, HLD, GERD that presents for weight management follow-up. Reviewed [facility] holistic and medical approach to weight loss with emphasis on lifestyle modification. 09/04/2024: Weight: 264, BMI: 36.8. Patient down 10 pounds. Seca reviewed, reveals 9 pounds of fat loss and 1 pound of muscle mass loss. Patient encouraged to continue practicing portion control and prioritizing protein intake, goal 90 g/day. He is additionally encouraged to continue hydrating adequately. Discussed importance of continued physical activity, recommending daily to walking continued use of free weights 2 to 3 days/week. Given 10 pound weight loss, plan to continue Zepbound 2.5 mg SC weekly and follow-up in 1 month. 08/03/24: Weight: 274, BMI: 38. Reviewed SECA/goals for implementing sustainable lifestyle changes. Patient is encouraged to increase physical activity, goal 8-10k steps/day. Also discussed the importance of strength training with proper safety/body mechanics for maintenance of muscle mass/bone health. Patient encouraged to drink 60-80oz water/day. Reviewed nutrition, recommending food diary x 1 week to ensure adequate caloric/protein intake. Goal of 100g protein/day. Reviewed risks, benefits, and side effects of weight management medications including phentermine, Topamax, Contrave, metformin, and GLP-1 agonist. Patient interested in GLP-1 agonist Zepbound. Denies personal/family history of thyroid cancer/M EN syndrome. Rx for Zepbound 2.5 mg SC weekly sent to pharmacy. Reviewed proper use, administration expectations for PA process/insurance coverage. All questions answered to the patient's satisfaction. Patient demonstrates understanding of diagnosis and treatments discussed. Follow-up at next scheduled appointment, sooner should any questions/concerns arise. Case discussed with collaborating physician Clark Davies who has reviewed the assessment/plan. Chart, medications, labs, and vital signs reviewed. Dictation completed with the use of [employer] voice recognition software, prone to medical misidentifications and grammatical errors. All errors are unintentional. Although the practitioner does try to identify and correct errors, some may be present. Please do not hesitate to contact the practitioner for clarification. Total time was 30 minutes spent with >50% on coordination of care and patient education. 09/04/2024 BMI 36.0-36.9,adult (ICD-10 - Z68.36) Denny is a 63-year-old male with a PMH of HTN, HLD, GERD that presents for weight management follow-up. Reviewed [facility] holistic and medical approach to weight loss with emphasis on lifestyle modification. 09/04/2024: Weight: 264, BMI: 36.8. Patient down 10 pounds. Seca reviewed, reveals 9 pounds of fat loss and 1 pound of muscle mass loss. Patient encouraged to continue practicing portion control and prioritizing protein intake, goal 90 g/day. He is additionally encouraged to continue hydrating adequately. Discussed importance of continued physical activity, recommending daily to walking continued use of free weights 2 to 3 days/week. Given 10 pound weight loss, plan to continue Zepbound 2.5 mg SC weekly and follow-up in 1 month. 08/03/24: Weight: 274, BMI: 38. Reviewed SECA/goals for implementing sustainable lifestyle changes. Patient is encouraged to increase physical activity, goal 8-10k steps/day. Also discussed the importance of strength training with proper safety/body mechanics for maintenance of muscle mass/bone health. Patient encouraged to drink 60-80oz water/day. Reviewed nutrition, recommending food diary x 1 week to ensure adequate caloric/protein intake. Goal of 100g protein/day. Reviewed risks, benefits, and side effects of weight management medications including phentermine, Topamax, Contrave, metformin, and GLP-1 agonist. Patient interested in GLP-1 agonist Zepbound. Denies personal/family history of thyroid cancer/M EN syndrome. Rx for Zepbound 2.5 mg SC weekly sent to pharmacy. Reviewed proper use, administration expectations for PA process/insurance coverage. All questions answered to the patient's satisfaction. Patient demonstrates understanding of diagnosis and treatments discussed. Follow-up at next scheduled appointment, sooner should any questions/concerns arise. Case discussed with collaborating physician Clark Davies who has reviewed the assessment/plan. Chart, medications, labs, and vital signs reviewed. Dictation completed with the use of [employer] voice recognition software, prone to medical misidentifications and grammatical errors. All errors are unintentional. Although the practitioner does try to identify and correct errors, some may be present. Please do not hesitate to contact the practitioner for clarification. Total time was 30 minutes spent with >50% on coordination of care and patient education. 10/03/2024 Obesity (BMI 30-39.9 ) (ICD-10 - E66.9) Denny is a 63-year-old male with a PMH of HTN, HLD, GERD that presents for weight management follow-up. Reviewed [facility] holistic and medical approach to weight loss with emphasis on lifestyle modification. 10/03/2024: Weight: 256.1, BMI: 35.7. Patient down 7 pounds since time of last visit. SECA reviewed, reveals 6 pounds of fat loss and 1 pound muscle mass loss. Patient encouraged to continue making health-conscious diet choices with prioritization of protein intake -goal 100 g/day. He is also encouraged to continue maintaining an active lifestyle with a combination of cardio/strength training. Recommending continued hydration. Plan to increase dose of Zepbound to 5 mg SC weekly and follow-up in 1 month. 09/04/2024: Weight: 264, BMI: 36.8. Patient down 10 pounds. Seca reviewed, reveals 9 pounds of fat loss and 1 pound of muscle mass loss. Patient encouraged to continue practicing portion control and prioritizing protein intake, goal 90 g/day. He is additionally encouraged to continue hydrating adequately. Discussed importance of continued physical activity, recommending daily to walking continued use of free weights 2 to 3 days/week. Given 10 pound weight loss, plan to continue Zepbound 2.5 mg SC weekly and follow-up in 1 month. 08/03/24: Weight: 274, BMI: 38. Reviewed SECA/goals for implementing sustainable lifestyle changes. Patient is encouraged to increase physical activity, goal 8-10k steps/day. Also discussed the importance of strength training with proper safety/body mechanics for maintenance of muscle mass/bone health. Patient encouraged to drink 60-80oz water/day. Reviewed nutrition, recommending food diary x 1 week to ensure adequate caloric/protein intake. Goal of 100g protein/day. Reviewed risks, benefits, and side effects of weight management medications including phentermine, Topamax, Contrave, metformin, and GLP-1 agonist. Patient interested in GLP-1 agonist Zepbound. Denies personal/family history of thyroid cancer/M EN syndrome. Rx for Zepbound 2.5 mg SC weekly sent to pharmacy. Reviewed proper use, administration expectations for PA process/insurance coverage. All questions answered to the patient's satisfaction. Patient demonstrates understanding of diagnosis and treatments discussed. Follow-up at next scheduled appointment, sooner should any questions/concerns arise. Case discussed with collaborating physician Clark Davies who has reviewed the assessment/plan. Chart, medications, labs, and vital signs reviewed. Dictation completed with the use of [employer] voice recognition software, prone to medical misidentifications and grammatical errors. All errors are unintentional. Although the practitioner does try to identify and correct errors, some may be present. Please do not hesitate to contact the practitioner for clarification. Total time was 30 minutes spent with >50% on coordination of care and patient education. 10/03/2024 BMI 35.0-35.9,adult (ICD-10 - Z68.35) Denny is a 63-year-old male with a PMH of HTN, HLD, GERD that presents for weight management follow-up. Reviewed [facility] holistic and medical approach to weight loss with emphasis on lifestyle modification. 10/03/2024: Weight: 256.1, BMI: 35.7. Patient down 7 pounds since time of last visit. SECA reviewed, reveals 6 pounds of fat loss and 1 pound muscle mass loss. Patient encouraged to continue making health-conscious diet choices with prioritization of protein intake -goal 100 g/day. He is also encouraged to continue maintaining an active lifestyle with a combination of cardio/strength training. Recommending continued hydration. Plan to increase dose of Zepbound to 5 mg SC weekly and follow-up in 1 month. 09/04/2024: Weight: 264, BMI: 36.8. Patient down 10 pounds. Seca reviewed, reveals 9 pounds of fat loss and 1 pound of muscle mass loss. Patient encouraged to continue practicing portion control and prioritizing protein intake, goal 90 g/day. He is additionally encouraged to continue hydrating adequately. Discussed importance of continued physical activity, recommending daily to walking continued use of free weights 2 to 3 days/week. Given 10 pound weight loss, plan to continue Zepbound 2.5 mg SC weekly and follow-up in 1 month. 08/03/24: Weight: 274, BMI: 38. Reviewed SECA/goals for implementing sustainable lifestyle changes. Patient is encouraged to increase physical activity, goal 8-10k steps/day. Also discussed the importance of strength training with proper safety/body mechanics for maintenance of muscle mass/bone health. Patient encouraged to drink 60-80oz water/day. Reviewed nutrition, recommending food diary x 1 week to ensure adequate caloric/protein intake. Goal of 100g protein/day. Reviewed risks, benefits, and side effects of weight management medications including phentermine, Topamax, Contrave, metformin, and GLP-1 agonist. Patient interested in GLP-1 agonist Zepbound. Denies personal/family history of thyroid cancer/M EN syndrome. Rx for Zepbound 2.5 mg SC weekly sent to pharmacy. Reviewed proper use, administration expectations for PA process/insurance coverage. All questions answered to the patient's satisfaction. Patient demonstrates understanding of diagnosis and treatments discussed. Follow-up at next scheduled appointment, sooner should any questions/concerns arise. Case discussed with collaborating physician Clark Davies who has reviewed the assessment/plan. Chart, medications, labs, and vital signs reviewed. Dictation completed with the use of [employer] voice recognition software, prone to medical misidentifications and grammatical errors. All errors are unintentional. Although the practitioner does try to identify and correct errors, some may be present. Please do not hesitate to contact the practitioner for clarification. Total time was 30 minutes spent with >50% on coordination of care and patient education. 11/02/2024 Obesity (BMI 30-39.9 ) (ICD-10 - E66.9) Denny is a 63-year-old male with a PMH of HTN, HLD, GERD that presents for weight management follow-up. Reviewed [facility] holistic and medical approach to weight loss with emphasis on lifestyle modification. 11/02/2024: Weight: 243.4, BMI: 33.9. Patient down 13 pounds. SECA reviewed, reveals 6 pounds of fat loss and 4 pounds of muscle mass patient encouraged to continue making health-conscious diet choices and prioritizing protein intake. Discussed importance of increasing frequency of strength training with goal of maintenance of healthy muscle mass. Will continue Zepbound 5 mg SC weekly and follow-up in 4 to 6 weeks. 10/03/2024: Weight: 256.1, BMI: 35.7. (-7lbs) 09/04/2024: Weight: 264, BMI: 36.8. (-10lbs) 08/03/24: Weight: 274, BMI: 38. All questions answered to the patient's satisfaction. Patient demonstrates understanding of diagnosis and treatments discussed. Follow-up at next scheduled appointment, sooner should any questions/concerns arise. Case discussed with collaborating physician Clark Davies who has reviewed the assessment/plan. Chart, medications, labs, and vital signs reviewed. Dictation completed with the use of [employer] voice recognition software, prone to medical misidentifications and grammatical errors. All errors are unintentional. Although the practitioner does try to identify and correct errors, some may be present. Please do not hesitate to contact the practitioner for clarification. Total time was 30 minutes spent with >50% on coordination of care and patient education. 11/02/2024 BMI 33.0-33.9,adult (ICD-10 - Z68.33) Denny is a 63-year-old male with a PMH of HTN, HLD, GERD that presents for weight management follow-up. Reviewed [facility] holistic and medical approach to weight loss with emphasis on lifestyle modification. 11/02/2024: Weight: 243.4, BMI: 33.9. Patient down 13 pounds. SECA reviewed, reveals 6 pounds of fat loss and 4 pounds of muscle mass patient encouraged to continue making health-conscious diet choices and prioritizing protein intake. Discussed importance of increasing frequency of strength training with goal of maintenance of healthy muscle mass. Will continue Zepbound 5 mg SC weekly and follow-up in 4 to 6 weeks. 10/03/2024: Weight: 256.1, BMI: 35.7. (-7lbs) 09/04/2024: Weight: 264, BMI: 36.8. (-10lbs) 08/03/24: Weight: 274, BMI: 38. All questions answered to the patient's satisfaction. Patient demonstrates understanding of diagnosis and treatments discussed. Follow-up at next scheduled appointment, sooner should any questions/concerns arise. Case discussed with collaborating physician Clark Davies who has reviewed the assessment/plan. Chart, medications, labs, and vital signs reviewed. Dictation completed with the use of [employer] voice recognition software, prone to medical misidentifications and grammatical errors. All errors are unintentional. Although the practitioner does try to identify and correct errors, some may be present. Please do not hesitate to contact the practitioner for clarification. Total time was 30 minutes spent with >50% on coordination of care and patient education. 12/07/2024 Obesity (BMI 30-39.9 ) (ICD-10 - E66.9) Denny is a 64-year-old male with a PMH of HTN, HLD, GERD that presents for weight management follow-up. Reviewed [facility] holistic and medical approach to weight loss with emphasis on lifestyle modification. 12/07/2024: Weight: 242.9, BMI: 32. (-1lb). SECA reviewed, reveals fat loss with increase in muscle mass. Patient encouraged to continue making health-conscious diet choices and prioritizing protein intake. Discussed importance of continued walking with added strength training. He is encouraged to continue hydrating adequately. Patient will complete 2 more doses of 5 mg with plan to increase dose to 7.5. Follow-up in 4 to 6 weeks. 11/02/2024: Weight: 243.4, BMI: 33.9. (-13lbs) 10/03/2024: Weight: 256.1, BMI: 35.7. (-7lbs) 09/04/2024: Weight: 264, BMI: 36.8. (-10lbs) 08/03/24: Weight: 274, BMI: 38. All questions answered to the patient's satisfaction. Patient demonstrates understanding of diagnosis and treatments discussed. Follow-up at next scheduled appointment, sooner should any questions/concerns arise. Case discussed with collaborating physician Clark Davies who has reviewed the assessment/plan. Chart, medications, labs, and vital signs reviewed. Dictation completed with the use of [employer] voice recognition software, prone to medical misidentifications and grammatical errors. All errors are unintentional. Although the practitioner does try to identify and correct errors, some may be present. Please do not hesitate to contact the practitioner for clarification. Total time was 30 minutes spent with >50% on coordination of care and patient education. 12/07/2024 BMI 32.0-32.9,adult (ICD-10 - Z68.32) Denny is a 64-year-old male with a PMH of HTN, HLD, GERD that presents for weight management follow-up. Reviewed [facility] holistic and medical approach to weight loss with emphasis on lifestyle modification. 12/07/2024: Weight: 242.9, BMI: 32. (-1lb). SECA reviewed, reveals fat loss with increase in muscle mass. Patient encouraged to continue making health-conscious diet choices and prioritizing protein intake. Discussed importance of continued walking with added strength training. He is encouraged to continue hydrating adequately. Patient will complete 2 more doses of 5 mg with plan to increase dose to 7.5. Follow-up in 4 to 6 weeks. 11/02/2024: Weight: 243.4, BMI: 33.9. (-13lbs) 10/03/2024: Weight: 256.1, BMI: 35.7. (-7lbs) 09/04/2024: Weight: 264, BMI: 36.8. (-10lbs) 08/03/24: Weight: 274, BMI: 38. All questions answered to the patient's satisfaction. Patient demonstrates understanding of diagnosis and treatments discussed. Follow-up at next scheduled appointment, sooner should any questions/concerns arise. Case discussed with collaborating physician Clark Davies who has reviewed the assessment/plan. Chart, medications, labs, and vital signs reviewed. Dictation completed with the use of [employer] voice recognition software, prone to medical misidentifications and grammatical errors. All errors are unintentional. Although the practitioner does try to identify and correct errors, some may be present. Please do not hesitate to contact the practitioner for clarification. Total time was 30 minutes spent with >50% on coordination of care and patient education. 01/19/2025 Obesity (BMI 30-39.9 ) (ICD-10 - E66.9) Denny is a 64-year-old male with a PMH of HTN, HLD, GERD that presents for weight management follow-up. Reviewed [facility] holistic and medical approach to weight loss with emphasis on lifestyle modification. 01/18/2025: Weight: 234, BMI: 30.8 (-8lbs) SECA reviewed, reveals 4 pounds of muscle mass loss and stable fat mass. Reviewed importance of continued prioritization of protein intake and goal of increasing strength training to maintain healthy muscle mass. He is encouraged to continue practicing portion control hydrating adequately and walking regularly. Plan to continue Zepbound 7.5 mg SC weekly and follow-up in 1 month. 12/07/2024: Weight: 242.9, BMI: 32. (-1lb) 11/02/2024: Weight: 243.4, BMI: 33.9. (-13lbs) 10/03/2024: Weight: 256.1, BMI: 35.7. (-7lbs) 09/04/2024: Weight: 264, BMI: 36.8. (-10lbs) 08/03/24: Weight: 274, BMI: 38. All questions answered to the patient's satisfaction. Patient demonstrates understanding of diagnosis and treatments discussed. Follow-up at next scheduled appointment, sooner should any questions/concerns arise. Case discussed with collaborating physician Clark Davies who has reviewed the assessment/plan. Chart, medications, labs, and vital signs reviewed. Dictation completed with the use of [employer] voice recognition software, prone to medical misidentifications and grammatical errors. All errors are unintentional. Although the practitioner does try to identify and correct errors, some may be present. Please do not hesitate to contact the practitioner for clarification. Total time was 30 minutes spent with >50% on coordination of care and patient education. 01/19/2025 BMI 30.0-30.9,adult (ICD-10 - Z68.30) Denny is a 64-year-old male with a PMH of HTN, HLD, GERD that presents for weight management follow-up. Reviewed [facility] holistic and medical approach to weight loss with emphasis on lifestyle modification. 01/18/2025: Weight: 234, BMI: 30.8 (-8lbs) SECA reviewed, reveals 4 pounds of muscle mass loss and stable fat mass. Reviewed importance of continued prioritization of protein intake and goal of increasing strength training to maintain healthy muscle mass. He is encouraged to continue practicing portion control hydrating adequately and walking regularly. Plan to continue Zepbound 7.5 mg SC weekly and follow-up in 1 month. 12/07/2024: Weight: 242.9, BMI: 32. (-1lb) 11/02/2024: Weight: 243.4, BMI: 33.9. (-13lbs) 10/03/2024: Weight: 256.1, BMI: 35.7. (-7lbs) 09/04/2024: Weight: 264, BMI: 36.8. (-10lbs) 08/03/24: Weight: 274, BMI: 38. All questions answered to the patient's satisfaction. Patient demonstrates understanding of diagnosis and treatments discussed. Follow-up at next scheduled appointment, sooner should any questions/concerns arise. Case discussed with collaborating physician Clark Davies who has reviewed the assessment/plan. Chart, medications, labs, and vital signs reviewed. Dictation completed with the use of [employer] voice recognition software, prone to medical misidentifications and grammatical errors. All errors are unintentional. Although the practitioner does try to identify and correct errors, some may be present. Please do not hesitate to contact the practitioner for clarification. Total time was 30 minutes spent with >50% on coordination of care and patient education. 01/19/2025 Essential hypertensi on (ICD-10 - I10) Denny is a 64-year-old male with a PMH of HTN, HLD, GERD that presents for weight management follow-up. Reviewed [facility] holistic and medical approach to weight loss with emphasis on lifestyle modification. 01/18/2025: Weight: 234, BMI: 30.8 (-8lbs) SECA reviewed, reveals 4 pounds of muscle mass loss and stable fat mass. Reviewed importance of continued prioritization of protein intake and goal of increasing strength training to maintain healthy muscle mass. He is encouraged to continue practicing portion control hydrating adequately and walking regularly. Plan to continue Zepbound 7.5 mg SC weekly and follow-up in 1 month. 12/07/2024: Weight: 242.9, BMI: 32. (-1lb) 11/02/2024: Weight: 243.4, BMI: 33.9. (-13lbs) 10/03/2024: Weight: 256.1, BMI: 35.7. (-7lbs) 09/04/2024: Weight: 264, BMI: 36.8. (-10lbs) 08/03/24: Weight: 274, BMI: 38. All questions answered to the patient's satisfaction. Patient demonstrates understanding of diagnosis and treatments discussed. Follow-up at next scheduled appointment, sooner should any questions/concerns arise. Case discussed with collaborating physician Clark Davies who has reviewed the assessment/plan. Chart, medications, labs, and vital signs reviewed. Dictation completed with the use of Dragon voice recognition software, prone to medical misidentifications and grammatical errors. All errors are unintentional. Although the practitioner does try to identify and correct errors, some may be present. Please do not hesitate to contact the practitioner for clarification. Total time was 30 minutes spent with >50% on coordination of care and patient education. 12/07/2024 Essential hypertensi on (ICD-10 - I10) Denny is a 64-year-old male with a PMH of HTN, HLD, GERD that presents for weight management follow-up. Reviewed [facility] holistic and medical approach to weight loss with emphasis on lifestyle modification. 12/07/2024: Weight: 242.9, BMI: 32. (-1lb). SECA reviewed, reveals fat loss with increase in muscle mass. Patient encouraged to continue making health-conscious diet choices and prioritizing protein intake. Discussed importance of continued walking with added strength training. He is encouraged to continue hydrating adequately. Patient will complete 2 more doses of 5 mg with plan to increase dose to 7.5. Follow-up in 4 to 6 weeks. 11/02/2024: Weight: 243.4, BMI: 33.9. (-13lbs) 10/03/2024: Weight: 256.1, BMI: 35.7. (-7lbs) 09/04/2024: Weight: 264, BMI: 36.8. (-10lbs) 08/03/24: Weight: 274, BMI: 38. All questions answered to the patient's satisfaction. Patient demonstrates understanding of diagnosis and treatments discussed. Follow-up at next scheduled appointment, sooner should any questions/concerns arise. Case discussed with collaborating physician Clark Davies who has reviewed the assessment/plan. Chart, medications, labs, and vital signs reviewed. Dictation completed with the use of [employer] voice recognition software, prone to medical misidentifications and grammatical errors. All errors are unintentional. Although the practitioner does try to identify and correct errors, some may be present. Please do not hesitate to contact the practitioner for clarification. Total time was 30 minutes spent with >50% on coordination of care and patient education. 11/02/2024 Essential hypertensi on (ICD-10 - I10) Denny is a 63-year-old male with a PMH of HTN, HLD, GERD that presents for weight management follow-up. Reviewed [facility] holistic and medical approach to weight loss with emphasis on lifestyle modification. 11/02/2024: Weight: 243.4, BMI: 33.9. Patient down 13 pounds. SECA reviewed, reveals 6 pounds of fat loss and 4 pounds of muscle mass patient encouraged to continue making health-conscious diet choices and prioritizing protein intake. Discussed importance of increasing frequency of strength training with goal of maintenance of healthy muscle mass. Will continue Zepbound 5 mg SC weekly and follow-up in 4 to 6 weeks. 10/03/2024: Weight: 256.1, BMI: 35.7. (-7lbs) 09/04/2024: Weight: 264, BMI: 36.8. (-10lbs) 08/03/24: Weight: 274, BMI: 38. All questions answered to the patient's satisfaction. Patient demonstrates understanding of diagnosis and treatments discussed. Follow-up at next scheduled appointment, sooner should any questions/concerns arise. Case discussed with collaborating physician Clark Davies who has reviewed the assessment/plan. Chart, medications, labs, and vital signs reviewed. Dictation completed with the use of [employer] voice recognition software, prone to medical misidentifications and grammatical errors. All errors are unintentional. Although the practitioner does try to identify and correct errors, some may be present. Please do not hesitate to contact the practitioner for clarification. Total time was 30 minutes spent with >50% on coordination of care and patient education. 10/03/2024 Essential hypertensi on (ICD-10 - I10) Denny is a 63-year-old male with a PMH of HTN, HLD, GERD that presents for weight management follow-up. Reviewed [facility] holistic and medical approach to weight loss with emphasis on lifestyle modification. 10/03/2024: Weight: 256.1, BMI: 35.7. Patient down 7 pounds since time of last visit. SECA reviewed, reveals 6 pounds of fat loss and 1 pound muscle mass loss. Patient encouraged to continue making health-conscious diet choices with prioritization of protein intake -goal 100 g/day. He is also encouraged to continue maintaining an active lifestyle with a combination of cardio/strength training. Recommending continued hydration. Plan to increase dose of Zepbound to 5 mg SC weekly and follow-up in 1 month. 09/04/2024: Weight: 264, BMI: 36.8. Patient down 10 pounds. Seca reviewed, reveals 9 pounds of fat loss and 1 pound of muscle mass loss. Patient encouraged to continue practicing portion control and prioritizing protein intake, goal 90 g/day. He is additionally encouraged to continue hydrating adequately. Discussed importance of continued physical activity, recommending daily to walking continued use of free weights 2 to 3 days/week. Given 10 pound weight loss, plan to continue Zepbound 2.5 mg SC weekly and follow-up in 1 month. 08/03/24: Weight: 274, BMI: 38. Reviewed SECA/goals for implementing sustainable lifestyle changes. Patient is encouraged to increase physical activity, goal 8-10k steps/day. Also discussed the importance of strength training with proper safety/body mechanics for maintenance of muscle mass/bone health. Patient encouraged to drink 60-80oz water/day. Reviewed nutrition, recommending food diary x 1 week to ensure adequate caloric/protein intake. Goal of 100g protein/day. Reviewed risks, benefits, and side effects of weight management medications including phentermine, Topamax, Contrave, metformin, and GLP-1 agonist. Patient interested in GLP-1 agonist Zepbound. Denies personal/family history of thyroid cancer/M EN syndrome. Rx for Zepbound 2.5 mg SC weekly sent to pharmacy. Reviewed proper use, administration expectations for PA process/insurance coverage. All questions answered to the patient's satisfaction. Patient demonstrates understanding of diagnosis and treatments discussed. Follow-up at next scheduled appointment, sooner should any questions/concerns arise. Case discussed with collaborating physician Clark Davies who has reviewed the assessment/plan. Chart, medications, labs, and vital signs reviewed. Dictation completed with the use of [employer] voice recognition software, prone to medical misidentifications and grammatical errors. All errors are unintentional. Although the practitioner does try to identify and correct errors, some may be present. Please do not hesitate to contact the practitioner for clarification. Total time was 30 minutes spent with >50% on coordination of care and patient education. 09/04/2024 Essential hypertensi on (ICD-10 - I10) Denny is a 63-year-old male with a PMH of HTN, HLD, GERD that presents for weight management follow-up. Reviewed [facility] holistic and medical approach to weight loss with emphasis on lifestyle modification. 09/04/2024: Weight: 264, BMI: 36.8. Patient down 10 pounds. Seca reviewed, reveals 9 pounds of fat loss and 1 pound of muscle mass loss. Patient encouraged to continue practicing portion control and prioritizing protein intake, goal 90 g/day. He is additionally encouraged to continue hydrating adequately. Discussed importance of continued physical activity, recommending daily to walking continued use of free weights 2 to 3 days/week. Given 10 pound weight loss, plan to continue Zepbound 2.5 mg SC weekly and follow-up in 1 month. 08/03/24: Weight: 274, BMI: 38. Reviewed SECA/goals for implementing sustainable lifestyle changes. Patient is encouraged to increase physical activity, goal 8-10k steps/day. Also discussed the importance of strength training with proper safety/body mechanics for maintenance of muscle mass/bone health. Patient encouraged to drink 60-80oz water/day. Reviewed nutrition, recommending food diary x 1 week to ensure adequate caloric/protein intake. Goal of 100g protein/day. Reviewed risks, benefits, and side effects of weight management medications including phentermine, Topamax, Contrave, metformin, and GLP-1 agonist. Patient interested in GLP-1 agonist Zepbound. Denies personal/family history of thyroid cancer/M EN syndrome. Rx for Zepbound 2.5 mg SC weekly sent to pharmacy. Reviewed proper use, administration expectations for PA process/insurance coverage. All questions answered to the patient's satisfaction. Patient demonstrates understanding of diagnosis and treatments discussed. Follow-up at next scheduled appointment, sooner should any questions/concerns arise. Case discussed with collaborating physician Clark Davies who has reviewed the assessment/plan. Chart, medications, labs, and vital signs reviewed. Dictation completed with the use of [employer] voice recognition software, prone to medical misidentifications and grammatical errors. All errors are unintentional. Although the practitioner does try to identify and correct errors, some may be present. Please do not hesitate to contact the practitioner for clarification. Total time was 30 minutes spent with >50% on coordination of care and patient education. 08/03/2024 Essential hypertensi on (ICD-10 - I10) Denny is a 63-year-old male with a PMH of HTN, HLD, GERD that presents for weight management consult. Patient was reassured and welcomed to the practice. Discussed [facility] holistic and medical approach to weight loss with emphasis on lifestyle modification. Patient is educated that a healthy lifestyle aids in combating obesity as well as reducing the risk of developing obesity-related medical complications including but not limited to diabetes and cardiovascular disease. Detailed education provided about taking steps to initiate sustainable lifestyle changes including incorporating regular physical activity, making healthy diet choices, and prioritizing mental health. Information provided about literature including The Food Rules by Rachid Morley and Eat Fat Get Lean by Dr Jose Alfredo Michelle. Handouts including lifestyle checklist, protein content of food, low calorie snacks, and cholesterol information sheet provided. Diagnostic testing/ SECA scale offered. Discussed the importance of regular SECA scale measurements to ensure healthy weight loss. 08/03/24: Weight: 274, BMI: 38. Reviewed SECA/goals for implementing sustainable lifestyle changes. Patient is encouraged to increase physical activity, goal 8-10k steps/day. Also discussed the importance of strength training with proper safety/body mechanics for maintenance of muscle mass/bone health. Patient encouraged to drink 60-80oz water/day. Reviewed nutrition, recommending food diary x 1 week to ensure adequate caloric/protein intake. Goal of 100g protein/day. Reviewed risks, benefits, and side effects of weight management medications including phentermine, Topamax, Contrave, metformin, and GLP-1 agonist. Patient interested in GLP-1 agonist Zepbound. Denies personal/family history of thyroid cancer/M EN syndrome. Rx for Zepbound 2.5 mg SC weekly sent to pharmacy. Reviewed proper use, administration expectations for PA process/insurance coverage. After consultation and careful review of medical history, this patient would benefit from Zepbound based off of the following criteria met: Patient is over the age of 18 with a BMI of 38. Additional comorbidities include HTN, HLD. Patient has trialed other methods of weight loss including improving diet and exercise without success. This medication is prescribed by or in consultation with a board-certified obesity and weight management physician (Dr. Neel Davies or Dr. Teto Davies). All questions answered to the patient's satisfaction. Patient demonstrates understanding of diagnosis and treatments discussed. Follow-up at next scheduled appointment, sooner should any questions/concerns arise. Case discussed with collaborating physician Clark Davies who has reviewed the assessment/plan. Chart, medications, labs, and vital signs reviewed. Dictation completed with the use of [employer] voice recognition software, prone to medical misidentifications and grammatical errors. All errors are unintentional. Although the practitioner does try to identify and correct errors, some may be present. Please do not hesitate to contact the practitioner for clarification. Total time was 60 minutes spent with >50% on coordination of care and patient education. 08/03/2024 Pure hypercholesterolemia (ICD-10 - E78.00) Denny is a 63-year-old male with a PMH of HTN, HLD, GERD that presents for weight management consult. Patient was reassured and welcomed to the practice. Discussed [facility] holistic and medical approach to weight loss with emphasis on lifestyle modification. Patient is educated that a healthy lifestyle aids in combating obesity as well as reducing the risk of developing obesity-related medical complications including but not limited to diabetes and cardiovascular disease. Detailed education provided about taking steps to initiate sustainable lifestyle changes including incorporating regular physical activity, making healthy diet choices, and prioritizing mental health. Information provided about literature including The Food Rules by Rachid Morley and Eat Fat Get Lean by Dr Jose Alfredo Michelel. Handouts including lifestyle checklist, protein content of food, low calorie snacks, and cholesterol information sheet provided. Diagnostic testing/ SECA scale offered. Discussed the importance of regular SECA scale measurements to ensure healthy weight loss. 08/03/24: Weight: 274, BMI: 38. Reviewed SECA/goals for implementing sustainable lifestyle changes. Patient is encouraged to increase physical activity, goal 8-10k steps/day. Also discussed the importance of strength training with proper safety/body mechanics for maintenance of muscle mass/bone health. Patient encouraged to drink 60-80oz water/day. Reviewed nutrition, recommending food diary x 1 week to ensure adequate caloric/protein intake. Goal of 100g protein/day. Reviewed risks, benefits, and side effects of weight management medications including phentermine, Topamax, Contrave, metformin, and GLP-1 agonist. Patient interested in GLP-1 agonist Zepbound. Denies personal/family history of thyroid cancer/M EN syndrome. Rx for Zepbound 2.5 mg SC weekly sent to pharmacy. Reviewed proper use, administration expectations for PA process/insurance coverage. After consultation and careful review of medical history, this patient would benefit from Zepbound based off of the following criteria met: Patient is over the age of 19 with a BMI of 38. Additional comorbidities include HTN, HLD. Patient has trialed other methods of weight loss including improving diet and exercise without success. This medication is prescribed by or in consultation with a board-certified obesity and weight management physician (Dr. Neel Davies or Dr. Teto Davies). All questions answered to the patient's satisfaction. Patient demonstrates understanding of diagnosis and treatments discussed. Follow-up at next scheduled appointment, sooner should any questions/concerns arise. Case discussed with collaborating physician Clark Davies who has reviewed the assessment/plan. Chart, medications, labs, and vital signs reviewed. Dictation completed with the use of [employer] voice recognition software, prone to medical misidentifications and grammatical errors. All errors are unintentional. Although the practitioner does try to identify and correct errors, some may be present. Please do not hesitate to contact the practitioner for clarification. Total time was 60 minutes spent with >50% on coordination of care and patient education. 09/04/2024 Pure hypercholesterolemia (ICD-10 - E78.00) Denny is a 63-year-old male with a PMH of HTN, HLD, GERD that presents for weight management follow-up. Reviewed [facility] holistic and medical approach to weight loss with emphasis on lifestyle modification. 09/04/2024: Weight: 264, BMI: 36.8. Patient down 10 pounds. Seca reviewed, reveals 9 pounds of fat loss and 1 pound of muscle mass loss. Patient encouraged to continue practicing portion control and prioritizing protein intake, goal 90 g/day. He is additionally encouraged to continue hydrating adequately. Discussed importance of continued physical activity, recommending daily to walking continued use of free weights 2 to 3 days/week. Given 10 pound weight loss, plan to continue Zepbound 2.5 mg SC weekly and follow-up in 1 month. 08/03/24: Weight: 274, BMI: 38. Reviewed SECA/goals for implementing sustainable lifestyle changes. Patient is encouraged to increase physical activity, goal 8-10k steps/day. Also discussed the importance of strength training with proper safety/body mechanics for maintenance of muscle mass/bone health. Patient encouraged to drink 60-80oz water/day. Reviewed nutrition, recommending food diary x 1 week to ensure adequate caloric/protein intake. Goal of 100g protein/day. Reviewed risks, benefits, and side effects of weight management medications including phentermine, Topamax, Contrave, metformin, and GLP-1 agonist. Patient interested in GLP-1 agonist Zepbound. Denies personal/family history of thyroid cancer/M EN syndrome. Rx for Zepbound 2.5 mg SC weekly sent to pharmacy. Reviewed proper use, administration expectations for PA process/insurance coverage. All questions answered to the patient's satisfaction. Patient demonstrates understanding of diagnosis and treatments discussed. Follow-up at next scheduled appointment, sooner should any questions/concerns arise. Case discussed with collaborating physician Clark Davies who has reviewed the assessment/plan. Chart, medications, labs, and vital signs reviewed. Dictation completed with the use of [employer] voice recognition software, prone to medical misidentifications and grammatical errors. All errors are unintentional. Although the practitioner does try to identify and correct errors, some may be present. Please do not hesitate to contact the practitioner for clarification. Total time was 30 minutes spent with >50% on coordination of care and patient education. 10/03/2024 Pure hypercholesterolemia (ICD-10 - E78.00) Denny is a 63-year-old male with a PMH of HTN, HLD, GERD that presents for weight management follow-up. Reviewed [facility] holistic and medical approach to weight loss with emphasis on lifestyle modification. 10/03/2024: Weight: 256.1, BMI: 35.7. Patient down 7 pounds since time of last visit. SECA reviewed, reveals 6 pounds of fat loss and 1 pound muscle mass loss. Patient encouraged to continue making health-conscious diet choices with prioritization of protein intake -goal 100 g/day. He is also encouraged to continue maintaining an active lifestyle with a combination of cardio/strength training. Recommending continued hydration. Plan to increase dose of Zepbound to 5 mg SC weekly and follow-up in 1 month. 09/04/2024: Weight: 264, BMI: 36.8. Patient down 10 pounds. Seca reviewed, reveals 9 pounds of fat loss and 1 pound of muscle mass loss. Patient encouraged to continue practicing portion control and prioritizing protein intake, goal 90 g/day. He is additionally encouraged to continue hydrating adequately. Discussed importance of continued physical activity, recommending daily to walking continued use of free weights 2 to 3 days/week. Given 10 pound weight loss, plan to continue Zepbound 2.5 mg SC weekly and follow-up in 1 month. 08/03/24: Weight: 274, BMI: 38. Reviewed SECA/goals for implementing sustainable lifestyle changes. Patient is encouraged to increase physical activity, goal 8-10k steps/day. Also discussed the importance of strength training with proper safety/body mechanics for maintenance of muscle mass/bone health. Patient encouraged to drink 60-80oz water/day. Reviewed nutrition, recommending food diary x 1 week to ensure adequate caloric/protein intake. Goal of 100g protein/day. Reviewed risks, benefits, and side effects of weight management medications including phentermine, Topamax, Contrave, metformin, and GLP-1 agonist. Patient interested in GLP-1 agonist Zepbound. Denies personal/family history of thyroid cancer/M EN syndrome. Rx for Zepbound 2.5 mg SC weekly sent to pharmacy. Reviewed proper use, administration expectations for PA process/insurance coverage. All questions answered to the patient's satisfaction. Patient demonstrates understanding of diagnosis and treatments discussed. Follow-up at next scheduled appointment, sooner should any questions/concerns arise. Case discussed with collaborating physician Clark Davies who has reviewed the assessment/plan. Chart, medications, labs, and vital signs reviewed. Dictation completed with the use of [employer] voice recognition software, prone to medical misidentifications and grammatical errors. All errors are unintentional. Although the practitioner does try to identify and correct errors, some may be present. Please do not hesitate to contact the practitioner for clarification. Total time was 30 minutes spent with >50% on coordination of care and patient education. 11/02/2024 Pure hypercholesterolemia (ICD-10 - E78.00) Denny is a 63-year-old male with a PMH of HTN, HLD, GERD that presents for weight management follow-up. Reviewed [facility] holistic and medical approach to weight loss with emphasis on lifestyle modification. 11/02/2024: Weight: 243.4, BMI: 33.9. Patient down 13 pounds. SECA reviewed, reveals 6 pounds of fat loss and 4 pounds of muscle mass patient encouraged to continue making health-conscious diet choices and prioritizing protein intake. Discussed importance of increasing frequency of strength training with goal of maintenance of healthy muscle mass. Will continue Zepbound 5 mg SC weekly and follow-up in 4 to 6 weeks. 10/03/2024: Weight: 256.1, BMI: 35.7. (-7lbs) 09/04/2024: Weight: 264, BMI: 36.8. (-10lbs) 08/03/24: Weight: 274, BMI: 38. All questions answered to the patient's satisfaction. Patient demonstrates understanding of diagnosis and treatments discussed. Follow-up at next scheduled appointment, sooner should any questions/concerns arise. Case discussed with collaborating physician Clark Davies who has reviewed the assessment/plan. Chart, medications, labs, and vital signs reviewed. Dictation completed with the use of [employer] voice recognition software, prone to medical misidentifications and grammatical errors. All errors are unintentional. Although the practitioner does try to identify and correct errors, some may be present. Please do not hesitate to contact the practitioner for clarification. Total time was 30 minutes spent with >50% on coordination of care and patient education. 12/07/2024 Pure hypercholesterolemia (ICD-10 - E78.00) Denny is a 64-year-old male with a PMH of HTN, HLD, GERD that presents for weight management follow-up. Reviewed [facility] holistic and medical approach to weight loss with emphasis on lifestyle modification. 12/07/2024: Weight: 242.9, BMI: 32. (-1lb). SECA reviewed, reveals fat loss with increase in muscle mass. Patient encouraged to continue making health-conscious diet choices and prioritizing protein intake. Discussed importance of continued walking with added strength training. He is encouraged to continue hydrating adequately. Patient will complete 2 more doses of 5 mg with plan to increase dose to 7.5. Follow-up in 4 to 6 weeks. 11/02/2024: Weight: 243.4, BMI: 33.9. (-13lbs) 10/03/2024: Weight: 256.1, BMI: 35.7. (-7lbs) 09/04/2024: Weight: 264, BMI: 36.8. (-10lbs) 08/03/24: Weight: 274, BMI: 38. All questions answered to the patient's satisfaction. Patient demonstrates understanding of diagnosis and treatments discussed. Follow-up at next scheduled appointment, sooner should any questions/concerns arise. Case discussed with collaborating physician Clark Davies who has reviewed the assessment/plan. Chart, medications, labs, and vital signs reviewed. Dictation completed with the use of [employer] voice recognition software, prone to medical misidentifications and grammatical errors. All errors are unintentional. Although the practitioner does try to identify and correct errors, some may be present. Please do not hesitate to contact the practitioner for clarification. Total time was 30 minutes spent with >50% on coordination of care and patient education. 01/19/2025 Pure hypercholesterolemia (ICD-10 - E78.00) Denny is a 64-year-old male with a PMH of HTN, HLD, GERD that presents for weight management follow-up. Reviewed [facility] holistic and medical approach to weight loss with emphasis on lifestyle modification. 01/18/2025: Weight: 234, BMI: 30.8 (-8lbs) SECA reviewed, reveals 4 pounds of muscle mass loss and stable fat mass. Reviewed importance of continued prioritization of protein intake and goal of increasing strength training to maintain healthy muscle mass. He is encouraged to continue practicing portion control hydrating adequately and walking regularly. Plan to continue Zepbound 7.5 mg SC weekly and follow-up in 1 month. 12/07/2024: Weight: 242.9, BMI: 32. (-1lb) 11/02/2024: Weight: 243.4, BMI: 33.9. (-13lbs) 10/03/2024: Weight: 256.1, BMI: 35.7. (-7lbs) 09/04/2024: Weight: 264, BMI: 36.8. (-10lbs) 08/03/24: Weight: 274, BMI: 38. All questions answered to the patient's satisfaction. Patient demonstrates understanding of diagnosis and treatments discussed. Follow-up at next scheduled appointment, sooner should any questions/concerns arise. Case discussed with collaborating physician Clark Davies who has reviewed the assessment/plan. Chart, medications, labs, and vital signs reviewed. Dictation completed with the use of [employer] voice recognition software, prone to medical misidentifications and grammatical errors. All errors are unintentional. Although the practitioner does try to identify and correct errors, some may be present. Please do not hesitate to contact the practitioner for clarification. Total time was 30 minutes spent with >50% on coordination of care and patient education. 01/19/2025 Nutritional counseli adelina (ICD-10 - Z71.3) Denny is a 64-year-old male with a PMH of HTN, HLD, GERD that presents for weight management follow-up. Reviewed [facility] holistic and medical approach to weight loss with emphasis on lifestyle modification. 01/18/2025: Weight: 234, BMI: 30.8 (-8lbs) SECA reviewed, reveals 4 pounds of muscle mass loss and stable fat mass. Reviewed importance of continued prioritization of protein intake and goal of increasing strength training to maintain healthy muscle mass. He is encouraged to continue practicing portion control hydrating adequately and walking regularly. Plan to continue Zepbound 7.5 mg SC weekly and follow-up in 1 month. 12/07/2024: Weight: 242.9, BMI: 32. (-1lb) 11/02/2024: Weight: 243.4, BMI: 33.9. (-13lbs) 10/03/2024: Weight: 256.1, BMI: 35.7. (-7lbs) 09/04/2024: Weight: 264, BMI: 36.8. (-10lbs) 08/03/24: Weight: 274, BMI: 38. All questions answered to the patient's satisfaction. Patient demonstrates understanding of diagnosis and treatments discussed. Follow-up at next scheduled appointment, sooner should any questions/concerns arise. Case discussed with collaborating physician Clark Davies who has reviewed the assessment/plan. Chart, medications, labs, and vital signs reviewed. Dictation completed with the use of [employer] voice recognition software, prone to medical misidentifications and grammatical errors. All errors are unintentional. Although the practitioner does try to identify and correct errors, some may be present. Please do not hesitate to contact the practitioner for clarification. Total time was 30 minutes spent with >50% on coordination of care and patient education. 12/07/2024 Nutritional counseli adelina (ICD-10 - Z71.3) Denny is a 64-year-old male with a PMH of HTN, HLD, GERD that presents for weight management follow-up. Reviewed [facility] holistic and medical approach to weight loss with emphasis on lifestyle modification. 12/07/2024: Weight: 242.9, BMI: 32. (-1lb). SECA reviewed, reveals fat loss with increase in muscle mass. Patient encouraged to continue making health-conscious diet choices and prioritizing protein intake. Discussed importance of continued walking with added strength training. He is encouraged to continue hydrating adequately. Patient will complete 2 more doses of 5 mg with plan to increase dose to 7.5. Follow-up in 4 to 6 weeks. 11/02/2024: Weight: 243.4, BMI: 33.9. (-13lbs) 10/03/2024: Weight: 256.1, BMI: 35.7. (-7lbs) 09/04/2024: Weight: 264, BMI: 36.8. (-10lbs) 08/03/24: Weight: 274, BMI: 38. All questions answered to the patient's satisfaction. Patient demonstrates understanding of diagnosis and treatments discussed. Follow-up at next scheduled appointment, sooner should any questions/concerns arise. Case discussed with collaborating physician Clark Davies who has reviewed the assessment/plan. Chart, medications, labs, and vital signs reviewed. Dictation completed with the use of [employer] voice recognition software, prone to medical misidentifications and grammatical errors. All errors are unintentional. Although the practitioner does try to identify and correct errors, some may be present. Please do not hesitate to contact the practitioner for clarification. Total time was 30 minutes spent with >50% on coordination of care and patient education. 11/02/2024 Nutritional counseldashawn sahu (ICD-10 - Z71.3) Denny is a 63-year-old male with a PMH of HTN, HLD, GERD that presents for weight management follow-up. Reviewed [facility] holistic and medical approach to weight loss with emphasis on lifestyle modification. 11/02/2024: Weight: 243.4, BMI: 33.9. Patient down 13 pounds. SECA reviewed, reveals 6 pounds of fat loss and 4 pounds of muscle mass patient encouraged to continue making health-conscious diet choices and prioritizing protein intake. Discussed importance of increasing frequency of strength training with goal of maintenance of healthy muscle mass. Will continue Zepbound 5 mg SC weekly and follow-up in 4 to 6 weeks. 10/03/2024: Weight: 256.1, BMI: 35.7. (-7lbs) 09/04/2024: Weight: 264, BMI: 36.8. (-10lbs) 08/03/24: Weight: 274, BMI: 38. All questions answered to the patient's satisfaction. Patient demonstrates understanding of diagnosis and treatments discussed. Follow-up at next scheduled appointment, sooner should any questions/concerns arise. Case discussed with collaborating physician Clark Davies who has reviewed the assessment/plan. Chart, medications, labs, and vital signs reviewed. Dictation completed with the use of [employer] voice recognition software, prone to medical misidentifications and grammatical errors. All errors are unintentional. Although the practitioner does try to identify and correct errors, some may be present. Please do not hesitate to contact the practitioner for clarification. Total time was 30 minutes spent with >50% on coordination of care and patient education. 10/03/2024 Nutritional counseli adelina (ICD-10 - Z71.3) Denny is a 63-year-old male with a PMH of HTN, HLD, GERD that presents for weight management follow-up. Reviewed [facility] holistic and medical approach to weight loss with emphasis on lifestyle modification. 10/03/2024: Weight: 256.1, BMI: 35.7. Patient down 7 pounds since time of last visit. SECA reviewed, reveals 6 pounds of fat loss and 1 pound muscle mass loss. Patient encouraged to continue making health-conscious diet choices with prioritization of protein intake -goal 100 g/day. He is also encouraged to continue maintaining an active lifestyle with a combination of cardio/strength training. Recommending continued hydration. Plan to increase dose of Zepbound to 5 mg SC weekly and follow-up in 1 month. 09/04/2024: Weight: 264, BMI: 36.8. Patient down 10 pounds. Seca reviewed, reveals 9 pounds of fat loss and 1 pound of muscle mass loss. Patient encouraged to continue practicing portion control and prioritizing protein intake, goal 90 g/day. He is additionally encouraged to continue hydrating adequately. Discussed importance of continued physical activity, recommending daily to walking continued use of free weights 2 to 3 days/week. Given 10 pound weight loss, plan to continue Zepbound 2.5 mg SC weekly and follow-up in 1 month. 08/03/24: Weight: 274, BMI: 38. Reviewed SECA/goals for implementing sustainable lifestyle changes. Patient is encouraged to increase physical activity, goal 8-10k steps/day. Also discussed the importance of strength training with proper safety/body mechanics for maintenance of muscle mass/bone health. Patient encouraged to drink 60-80oz water/day. Reviewed nutrition, recommending food diary x 1 week to ensure adequate caloric/protein intake. Goal of 100g protein/day. Reviewed risks, benefits, and side effects of weight management medications including phentermine, Topamax, Contrave, metformin, and GLP-1 agonist. Patient interested in GLP-1 agonist Zepbound. Denies personal/family history of thyroid cancer/M EN syndrome. Rx for Zepbound 2.5 mg SC weekly sent to pharmacy. Reviewed proper use, administration expectations for PA process/insurance coverage. All questions answered to the patient's satisfaction. Patient demonstrates understanding of diagnosis and treatments discussed. Follow-up at next scheduled appointment, sooner should any questions/concerns arise. Case discussed with collaborating physician Clark Davies who has reviewed the assessment/plan. Chart, medications, labs, and vital signs reviewed. Dictation completed with the use of [employer] voice recognition software, prone to medical misidentifications and grammatical errors. All errors are unintentional. Although the practitioner does try to identify and correct errors, some may be present. Please do not hesitate to contact the practitioner for clarification. Total time was 30 minutes spent with >50% on coordination of care and patient education. 09/04/2024 Nutritional counseli adelina (ICD-10 - Z71.3) Denny is a 63-year-old male with a PMH of HTN, HLD, GERD that presents for weight management follow-up. Reviewed [facility] holistic and medical approach to weight loss with emphasis on lifestyle modification. 09/04/2024: Weight: 264, BMI: 36.8. Patient down 10 pounds. Seca reviewed, reveals 9 pounds of fat loss and 1 pound of muscle mass loss. Patient encouraged to continue practicing portion control and prioritizing protein intake, goal 90 g/day. He is additionally encouraged to continue hydrating adequately. Discussed importance of continued physical activity, recommending daily to walking continued use of free weights 2 to 3 days/week. Given 10 pound weight loss, plan to continue Zepbound 2.5 mg SC weekly and follow-up in 1 month. 08/03/24: Weight: 274, BMI: 38. Reviewed SECA/goals for implementing sustainable lifestyle changes. Patient is encouraged to increase physical activity, goal 8-10k steps/day. Also discussed the importance of strength training with proper safety/body mechanics for maintenance of muscle mass/bone health. Patient encouraged to drink 60-80oz water/day. Reviewed nutrition, recommending food diary x 1 week to ensure adequate caloric/protein intake. Goal of 100g protein/day. Reviewed risks, benefits, and side effects of weight management medications including phentermine, Topamax, Contrave, metformin, and GLP-1 agonist. Patient interested in GLP-1 agonist Zepbound. Denies personal/family history of thyroid cancer/M EN syndrome. Rx for Zepbound 2.5 mg SC weekly sent to pharmacy. Reviewed proper use, administration expectations for PA process/insurance coverage. All questions answered to the patient's satisfaction. Patient demonstrates understanding of diagnosis and treatments discussed. Follow-up at next scheduled appointment, sooner should any questions/concerns arise. Case discussed with collaborating physician Clark Davies who has reviewed the assessment/plan. Chart, medications, labs, and vital signs reviewed. Dictation completed with the use of [employer] voice recognition software, prone to medical misidentifications and grammatical errors. All errors are unintentional. Although the practitioner does try to identify and correct errors, some may be present. Please do not hesitate to contact the practitioner for clarification. Total time was 30 minutes spent with >50% on coordination of care and patient education. 08/03/2024 Nutritional counseli adelina (ICD-10 - Z71.3) Denny is a 63-year-old male with a PMH of HTN, HLD, GERD that presents for weight management consult. Patient was reassured and welcomed to the practice. Discussed [facility] holistic and medical approach to weight loss with emphasis on lifestyle modification. Patient is educated that a healthy lifestyle aids in combating obesity as well as reducing the risk of developing obesity-related medical complications including but not limited to diabetes and cardiovascular disease. Detailed education provided about taking steps to initiate sustainable lifestyle changes including incorporating regular physical activity, making healthy diet choices, and prioritizing mental health. Information provided about literature including The Food Rules by Rachid Morley and Eat Fat Get Lean by Dr Jose Alfredo Michelle. Handouts including lifestyle checklist, protein content of food, low calorie snacks, and cholesterol information sheet provided. Diagnostic testing/ SECA scale offered. Discussed the importance of regular SECA scale measurements to ensure healthy weight loss. 08/03/24: Weight: 274, BMI: 38. Reviewed SECA/goals for implementing sustainable lifestyle changes. Patient is encouraged to increase physical activity, goal 8-10k steps/day. Also discussed the importance of strength training with proper safety/body mechanics for maintenance of muscle mass/bone health. Patient encouraged to drink 60-80oz water/day. Reviewed nutrition, recommending food diary x 1 week to ensure adequate caloric/protein intake. Goal of 100g protein/day. Reviewed risks, benefits, and side effects of weight management medications including phentermine, Topamax, Contrave, metformin, and GLP-1 agonist. Patient interested in GLP-1 agonist Zepbound. Denies personal/family history of thyroid cancer/M EN syndrome. Rx for Zepbound 2.5 mg SC weekly sent to pharmacy. Reviewed proper use, administration expectations for PA process/insurance coverage. After consultation and careful review of medical history, this patient would benefit from Zepbound based off of the following criteria met: Patient is over the age of 18 with a BMI of 38. Additional comorbidities include HTN, HLD. Patient has trialed other methods of weight loss including improving diet and exercise without success. This medication is prescribed by or in consultation with a board-certified obesity and weight management physician (Dr. Neel Davies or Dr. Teto Davies). All questions answered to the patient's satisfaction. Patient demonstrates understanding of diagnosis and treatments discussed. Follow-up at next scheduled appointment, sooner should any questions/concerns arise. Case discussed with collaborating physician Clark Davies who has reviewed the assessment/plan. Chart, medications, labs, and vital signs reviewed. Dictation completed with the use of [employer] voice recognition software, prone to medical misidentifications and grammatical errors. All errors are unintentional. Although the practitioner does try to identify and correct errors, some may be present. Please do not hesitate to contact the practitioner for clarification. Total time was 60 minutes spent with >50% on coordination of care and patient education. Plan Of Treatment Next Appt Details Provider Name:IMAN GREG Maria, 03/01/2025 09:00:00 AM, [address] [facility], [facility] [address], [place], [address], Insurance Providers Payer Name Payer Address Payer Phone Subscriber Number Group Number Insured Name Patient Relationship to Insured Coverage Start Date Coverage End Date [facility] [address] [place] [address] [id number] Denny Zavala Self - patient is the insured 4 Medical (General) History Medical History History ICD Code Essential hypertension I10 Hyperlipidemia E78.5 GERD (gastroesophageal reflux disease) K 21.9 Surgical History Surgery Date(Month/Year) cholecystectomy 2023 Bilateral inguinal hernia repair Colectomy Left ACL repair Appendectomy
--- OUTSIDE RECORDS SUMMARY | 2025-02-01 10:38 | XMS_ITS | Patient Health Record ---
Author Organization Terrance Heard MD Address [address] [place] [phone] Care Team Providers Care Rn Immunology Name Role Phone Terrance Heard Primary Care Provider [phone] Allergies Allergen (clinical drug ingredient) Drug/Non Drug Allergy documented on EMR Reaction Allergy Type Onset Date Status penicillin (uncoded) tongue swelling Allergy Active Results Component Value Reference Range Notes Blood Urea Nitrogen Reviewed date:02/25/2024 12:26:54 PM Interpretation: Performing Lab:[facility], [address] [place] [phone] Notes/Report: Blood Urea Nitrogen 18 9-16 mg/dL Lipid Panel with Reflex Reviewed date:07/27/2024 12:48:15 PM Interpretation: Performing Lab:[address] [phone] Notes/Report: Triglycerides 64 <150 mg/dL Desirable Triglyceride: [...] low results in patients with liver disease. Complete Blood Count Auto Di ff (Not yet reviewed by provider) Interpretation: Performing Lab:[facility], [address] [place] [phone] Notes/Report: White Blood Count 6.6 4.8-10.8 X10*3/uL [...] NRBC Abs Auto 0.000 0.0-0.012 X10*3/uL Comprehensive [place]. Panel Fa st (Not yet reviewed by provider) Interpretation: Performing Lab:[facility], [address] [place] [phone] Notes/Report: Sodium 139 135-145 mmol/L Potassium 4.3 [...] yet reviewe d by provider) Interpretation: Performing Lab:[facility], [address] [place] [phone] Notes/Report: Triglycerides 49 <150 mg/dL Desirable Triglyceride: [...] t yet reviewed by provider) Interpretation: Performing Lab:[facility], [address] [place] [phone] Notes/Report: PSA,Total (Free>4and<10) 1.06 0.00-4.00 ng/mL A [...] (Not yet reviewed by provider) Interpretation: Performing Lab:[facility], [address] [place] [phone] Notes/Report: Urine, Clean Catch Color Urine Yellow Appearance Urine Clear PH 6.0 5.0-9.0 Glucose Urine UA Negative Negative mg/dL Urine Blood Negative Negative Specific Louann - Urine 1.025 1.005-1.025 Urine Protein Negative Neg-Trace mg/dL Urine Ketones Negative Negative mg/dL Nitrite Urine Negative Negative Leukocyte Esterase Urine Negative Negative RBC Urine 0-2 0-2 /HPF WBC Urine 0-5 0-5 /HPF Squamous Epithelial Cell Urine 0-2 0-2 /HPF Bacteria Urine None Seen None Seen Hyaline Casts Urine 0-2 0-2 /LPF Occult Blood, Stool, Guaiac Reviewed date:02/03/2024 01:31:09 PM Interpretation:Negative Performing Lab: Notes/Report: Negative Occult Blood, Stool, Guaiac Neg Hold Gold Reviewed date:07/27/2024 12:40:28 PM Interpretation: Performing Lab:[facility], [address] [place] [phone] Notes/Report: Hold Gold See Note Specimen held untested for 24 hours; Call to request Chemistry testing. Reason For Referral No Information Medications Medication SIG (Take, Route, Frequency, Duration) Notes Start Date End Date Status Atorvastatin Calcium 40 MG TAKE ONE TABL ET BY MOUTH EVERY DAY Active Losartan Potassium 100 MG TAKE ONE TABLE T BY MOUTH EVERY DAY Active Tadalafil 10 MG TAKE ONE TABLET BY M OUTH EVERY DAY NEEDED for 30 Active Pantoprazole Sodium 40 MG TAKE ONE TABLE T BY MOUTH EVERY DAY for 30 Active ProAir HFA 108 (90 Base) MCG/ACT 2 puffs as needed Inhalation every 4 hrs 09/11/2013 Active Immunizations Vaccine Route Administration Date Status Comme nts TDaP IM Intramuscular 05/26/2011 Administered Flu Vaccine IM Intramuscular 08/02/2012 Administered Flu Vaccine IM Intramuscular 04/25/2013 Administered Fluarix Quadrivalent IM Intramuscular 02/06/2014 Administe red PPSV23 (Pnemovax) IM Intramuscular 04/05/2014 Administered Fluarix Quadrivalent IM Intramuscular 05/25/2016 Administe red Fluarix Quadrivalent Unknown 06/11/[address] [facility] TDaP Unknown 06/11/2018 Administered [facility] Tetanus Unknown 06/11/2018 Administered Fluarix Quadrivalent Unknown 04/18/[address] [facility] PPSV23 (Pnemovax) IM Intramuscular 01/02/2021 Administered SARS-COV-2 Moderna Unknown 07/29/2020 Administered SARS-COV-2 Moderna Unknown 08/26/2020 Administered SARS-COV-2 Moderna Unknown 05/12/2021 Administered Fluarix Quadrivalent Unknown 05/12/2021 Administered Fluarix Quadrivalent IM Intramuscular 03/05/2022 Administe red SARS-COV-2 Moderna Unknown 10/29/2021 Administered SARS-COV-2 Moderna Unknown 04/19/2022 Administered Fluarix Quadrivalent - 150 IM Intramuscular 02/14/2024 Administered Flu Vaccine Unknown 02/06/2014 Pending Fluarix Quadrivalent Unknown 03/22/2020 Pending [facility] Shingrix Unknown 03/22/2020 Pending [facility] Social History Tobacco Use: Social History Observation Description Date Details (start date - stop date) Never Smoker NA - NA Tobacco Use/Smoking Question Answer Notes Patient is a nonsmoker Additional Findings: Tobacco Non-User Cu rrent non-smoker, currently using no form of tobacco Alcohol Screen Question Answer Notes Did you have a drink contain ing alcohol in the past year? Yes How often did you have a dri nk containing alcohol in the past year? Monthly or less (1 point) How many drinks did you have on a typical day when you were drinking in the past year? 1 or 2 drinks (0 point) How often did you have 6 or more drinks on one occasion in the past year? Never (0 point) Points 1 Interpretation Negative Problems Problem Type SNOMED Code ICD Code Onset Dates Problem Status W/U Status Risk Notes Problem Pure hypercholesterolemia (978887945) Pure hypercholesterolemia (E78.0) Active confirmed Problem 373993233 Dupuytren contra cture (M72.0) Active confirmed Problem 12860204 Essential hypertension (I10) Active confirmed Problem 241722540 Mild intermitten t asthma without complication (J45.20) Active confirmed Problem 022780132 Low HDL (under 4 0) (E78.6) Active confirmed Problem 648475544 Erectile dysfunc tion, unspecified erectile dysfunction type (N52.9) Active confirmed Problem 632077683 Mild intermitten t asthma with acute exacerbation (J45.21) Active confirmed Problem Elevated WBC cou nt (D72.829) Active confirmed Problem 889055886 Elevated LDL cholesterol level (E78.00) Active confirmed Problem 066236772 Pure hypercholesterolemia (E78.00) Active confirmed Problem 9298526 Peyronie's disea se (N48.6) Active confirmed Problem 465079006 BMI 33.0-33.9,ad ult (Z68.33) Active confirmed Problem 705351519 History of colon resection (Z90.49) Active confirmed Vital Signs Blood pressure diastolic 82 mm Hg 08/03/2024 Height 73 in 08/03/2024 Blood pressure systolic 124 mm Hg 08/03/2024 Weight 281 lbs 08/03/2024 BMI 37.07 kg/m2 08/03/2024 Encounters Encounter Location Date Provider Diagnosis Terrance Heard MD [address] [place], [place] [id number] 02/14/2024 Terrance Heard Encounter for immuni zation Z23 Terrance Heard MD [address] [place], [place] [id number] 02/25/2024 Terrance Heard Elevated BUN R79.9 Terrance Heard MD [address] [place] [id number] 07/27/2024 Terrance Heard Pure hypercholestero lemia E78.00 Terrance Heard MD [address] [place] [id number] 02/01/2025 Terrance Heard Blood tests for rout ine general physical examination Z00.00 ; Essential hypertension I10 ; Elevated WBC count D72.829 and Pure hypercholesterolemia E78.00 Terrance Heard MD [address] [place] [id number] 02/03/2024 Terrance Heard Elevated BUN R79.9 ; Annual physical exam Z00.00 ; Essential hypertension I10 ; Pure hypercholesterolemia E78.00 ; Mild intermittent asthma with acute exacerbation J45.21 ; Colon cancer screening Z12.11 and Depression screening Z13.31 Terrance Heard MD [address] [id number] 06/29/2024 Terrance Heard Unintended weight ga in R63.5 Terrance Heard MD [address] [place] [id number] 08/03/2024 Terrance Heard Essential hypertensi on I10 and Pure hypercholesterolemia E78.00 Terrance Heard MD [address] [id number] 04/25/2024 Terrance Heard MD [address] [id number] 06/29/2024 Terrance Heard MD [address] [id number] 07/03/2024 Terrance Heard Assessments Encounter Date Diagnosis (ICD Code) Assessment Notes Treatment Notes Treatment Clinical Notes Section Notes 02/14/2024 Encounter for immunization (ICD-10 - Z23) 02/25/2024 Elevated BUN (ICD-10 - R79.9) 07/27/2024 Pure hypercholesterolemia (ICD-10 - E78.00) 02/01/[address] ine general physical examination (ICD-10 - Z00.00) 02/03/2024 Elevated BUN (ICD-10 - R79.9) will continue to monitor 02/03/2024 Annual physical exam (ICD-10 - Z00.00) labs reviewed and discussed with patient 06/29/2024 Unintended weight ga in (ICD-10 - R63.5) discussed the need for staying on the meds and the fact that there is no data on the supervisor intermediates meds.denny has been seeing people losing a large amt of weight on the meds and at the clinic in [facility] and wants a referral. have explained to him that there are no intermediate studies on the meds and that he will need to remain on therm to continue with a weight loss 08/03/2024 Essential hypertensi on (ICD-10 - I10) well controlled, will continue current regiment 02/01/2025 Essential hypertensi on (ICD-10 - I10) 02/03/2024 Essential hypertensi on (ICD-10 - I10) doing well, will continue current regiment 08/03/2024 Pure hypercholesterolemia (ICD-10 - E78.00) doing well on meds, will continue current regiment 02/01/2025 Elevated WBC count (ICD-10 - D72.829) 02/03/2024 Pure hypercholesterolemia (ICD-10 - E78.00) doing well, will continue current regiment 02/01/2025 Pure hypercholesterolemia (ICD-10 - E78.00) 02/03/2024 Mild intermittent as thma with acute exacerbation (ICD-10 - J45.21) not having any problems, will continue current regiment 02/03/2024 Colon cancer screeni ng (ICD-10 - Z12.11) guaiac negative 02/03/2024 Depression screening (ICD-10 - Z13.31) negative screen Plan Of Treatment Pending Test Test Name Order Date Electrocardiogram (EKG) 11/15/2015 Electrocardiogram (EKG) 11/27/2016 CT ABD W&WO CONTRAST 04/05/2014 CT ABD & PELVIS NO CONTRAST 04/05/2014 Complete Blood Count Auto Diff 5 Comprehensive [place]. Panel Fast 5 Liver Panel 07/27/2024 Lipid Panel 02/01/2025 PSA,Total (Free>4and<10) 02/01/2025 UA ClnCatch+Micro w/rflx Cult 02/01/2025 Next Appt Details Provider Name:Terrance Perla ier, 02/08/2025 08:30:00 AM, [address], [address], [place], [place], [phone], Insurance Providers Payer Name Payer Address Payer Phone Subscriber Number Group Number Insured Name Patient Relationship to Insured Coverage Start Date Coverage End Date [employer] [address] [place], [place] [id number] Denny Zavala Self - patient is the insured Medical (General) History Medical History History ICD Code colonoscopy 2008 due in 10 y ears; colonoscopy done 10/24/18 w/ Dr York repeat 10 years
== END 2025-02-01 09:33 | disposition home or self-care (01) ==
LOC: HO.LNP 09:32
PROVIDERS: Visit Provider Internal Medicine
DX: Z00.00 Encounter for general adult medical examination without abnormal findings (principal); Z12.5 Encounter for screening for malignant neoplasm of prostate; E78.00 Pure hypercholesterolemia, unspecified; I10 Essential (primary) hypertension; D72.829 Elevated white blood cell count, unspecified
CPT/HCPCS: 80053; 80061; 81001; 84153; 85025

== ENCOUNTER 2025-05-25 13:36 | Outpatient (REF) | payer BC, SELFPAY ==
--- OUTSIDE RECORDS SUMMARY | 2024-04-25 08:21 | XMS_ITS ---
Author Organization Terrance Heard MD Address [address] [place] [phone] Care Team Providers Care Dredge Or Barge Shore Hand Name Role Kaylie FélixMeagann Primary Care Provider REASON FOR VISIT ins referral Encounters Encounter Location Date Provider Diagnosis Terrance Heard MD [address] [place] [phone] 04/25/2024 Terrance Heard Plan Of Treatment Next Appt Details Provider Name:Terrance cortez, 08/10/2025 07:00:00 AM, [address] [facility], [address] [place] [address], [phone], Provider Name:Terrance cortez, 08/17/2025 09:00:00 AM, [address] [place] [address], [address] [place] [address], [phone], Provider Name:Terrance cortez, 02/05/2026 07:00:00 AM, [address], [address], [phone], Provider Name:Terrance Perla ier, 02/12/2026 08:30:00 AM, [address], [address], [place], [place], [phone], Progress Notes * Denny VASQUEZ ADOB: 2 (63 yo M)Acc No.[id number]:04/25/2024 Patient: Kamila Denny glover :1960 A ge:63 Y S ex:Male Address:[address] [place] [address] [place] [address] * true * Date: Generated for Maria R sahu/Samara/Mitziitting on: 07/26/2024 03:18 PM EST
--- OUTSIDE RECORDS SUMMARY | 2024-06-29 09:15 | XMS_ITS ---
Author Organization Terrance Heard MD Address [address] [place] [phone] Care Team Providers Care Pneumatic Tool Operator Name Role Phone Terrance Heard Primary Care Provider Allergies Allergen (clinical drug ingredient) Drug/Non Drug Allergy documented on EMR Reaction Allergy Type Onset Date Status penicillin (uncoded) tongue swelling Allergy Active REASON FOR VISIT wants to discuss WT loss drugs Medications Medication SIG (Take, Route, Frequency, Duration) Notes Start Date End Date Status Tadalafil 10 MG TAKE ONE TABLET BY M OUTH EVERY DAY NEEDED. for 30 Active Pantoprazole Sodium 40 MG TAKE ONE TABLE T BY MOUTH EVERY DAY for 30 Active ProAir HFA 108 (90 Base) MCG/ACT 2 puffs as needed Inhalation every 4 hrs 09/11/2013 Active Losartan Potassium 100 MG TAKE ONE TABLE T BY MOUTH EVERY DAY for 90 Active Atorvastatin Calcium 40 MG TAKE ONE TABL ET BY MOUTH EVERY DAY for 90 Active Vital Signs Blood pressure systolic 128 mm Hg 06/29/19 25 Blood pressure diastolic 80 mm Hg 01/23/2 025 Height 73 in 06/29/2024 Weight 281 lbs 06/29/2024 BMI 37.07 kg/m2 06/29/2024 weight is up 5 pounds since 02-03-24 Encounters Encounter Location Date Provider Diagnosis Terrance Heard MD [address] [place] [address] [place] [phone] 06/29/2024 Terrance Heard Unintended weight gain R63.5 Assessments Encounter Date Diagnosis (ICD Code) Assessment Notes Treatment Notes Treatment Clinical Notes Section Notes 06/29/2024 Unintended weight gain (ICD-10 - R63.5) discussed the need for staying on the meds and the fact that there is no data on the long term care administrator meds.denny has been seeing people losing a large amt of weight on the meds and at the clinic in [facility] and wants a referral. have explained to him that there are no long term care administrator studies on the meds and that he will need to remain on therm to continue with a weight loss Plan Of Treatment Treatment Notes Assessment Notes Unintended weight gain discussed the nee d for staying on the meds and the fact that there is no data on the shelter meds.denny has been seeing people losing a large amt of weight on the meds and at the clinic in [facility] and wants a referral. have explained to him that there are no shelter studies on the meds and that he will need to remain on therm to continue with a weight loss Next Appt Details Provider Name:Terrance cortez, 08/10/2025 07:00:00 AM, [address] [place] [address], [address] [place] [address], [phone], Provider Name:Terrance cortez, 08/17/2025 09:00:00 AM, [address] [place] [address], [address] [place] [address], [phone], Provider Name:Terrance cortez, 02/05/2026 07:00:00 AM, [address] [place] [address], [address], [phone], Provider Name:Terrance cortez, 02/12/2026 08:30:00 AM, [address] [place] [address], [address], [phone], Progress Notes * Denny VASQUEZ ADOB: 2 (63 yo M)Acc No.[id number]:06/29/2024 Progress Notes Patient: Denny TORREZ Provider: Ekaterina Heard MD :1960 A ge:63 Y S ex:Male Date:06/29/2024 Address:[address] [place] [address] [id number] Subjective: * Chief Complaints: * w ants to discuss WT loss drugs * HPI: S ymptom(s): patient is a 63 yo male here to discuss weight loss drugs. * ROS: G eneral/Constitutional: Denies C hills. D enies F atigue. D enies F ever. D enies H eadache. E NT: Patient denies d ecreased sense of smell, any loss of taste, sore throat. D enies S ore throat. R espiratory: Denies C ough. D enies S hortness of breath at rest. D enies S hortness of breath with exertion. G astrointestinal: Denies D iarrhea. D enies N ausea. P eripheral Vascular: Patient denies r ed and blue toes. * Medical History: * Surgical History: * Hospitalization/Major Diagno stic Procedure: * Medications: T akingProAir HFA 108 (90 Base) MCG/ACT Aerosol Solution 2 puffs as needed Inhalation every 4 hrs Pantoprazole Sodium 40 MG Tablet Delayed Release TAKE ONE TABLET BY MOUTH EVERY DAY Atorvastatin Calcium 40 MG Tablet TAKE ONE TABLET BY MOUTH EVERY DAY Losartan Potassium 100 MG Tablet TAKE ONE TABLET BY MOUTH EVERY DAY Tadalafil 10 MG Tablet TAKE ONE TABLET BY MOUTH EVERY DAY NEEDED. Medication List reviewed and reconciled with the patientTaking ProAir HFA 108 (90 Base) MCG/ACT Aerosol Solution 2 puffs as needed Inhalation every 4 hrs Taking Pantoprazole Sodium 40 MG Tablet Delayed Release TAKE ONE TABLET BY MOUTH EVERY DAY Taking Atorvastatin Calcium 40 MG Tablet TAKE ONE TABLET BY MOUTH EVERY DAY Taking Losartan Potassium 100 MG Tablet TAKE ONE TABLET BY MOUTH EVERY DAY Taking Tadalafil 10 MG Tablet TAKE ONE TABLET BY MOUTH EVERY DAY NEEDED. Medication List reviewed and reconciled with the patient * Allergies: p enicillin: tongue swellingyes[Allergies Verified] Objective: * Vitals: H t: 73, Wt: 281, BMI:37.07, BP:128/80, Wt-k.46. weight is up 5 pounds since 02-03-24. * Examination: G eneral Examination: GENERAL APPEARANCE: a lert, well hydrated, in no distress.? SKIN: g ood turgor. HEART: r egular rate and rhythm, no murmurs, rubs, gallops.? LUNGS: n o wheezes, rales, rhonchi, good air movement, clear to auscultation bilaterally. Assessment: * Assessment: 1. U nintended weight gain - R63.5 (Primary) Plan: * Treatment: * Procedure Codes: * * Sign off status: Completed true * Provider: Ekaterina Heard MD Date: 0 06/29/2024 Generated for Maria R sahu/Samara/Mitziitting on: 07/26/2024 03:19 PM EST History and Physical Notes * HPI (History of Present Illness) Category Sub-Category Detail Notes Category Not es Symptom(s) patient is a 63 yo male here to discuss weight loss drugs Examination Category Sub-Category Detail Notes Category Not es General Examination GENERAL APPEARANCE: alert, w ell hydrated, in no distress HEART: regular rate and rhy thm, no murmurs, rubs, gallops LUNGS: no wheezes, rales, r honchi, good air movement, clear to auscultation bilaterally SKIN: good turgor
--- OUTSIDE RECORDS SUMMARY | 2024-06-29 10:15 | XMS_ITS ---
Author Organization Terrance Heard MD Address [address] [place] [phone] Care Team Providers Care Supply Chain Procurement Manager Name Role Kaylie FélixMeagann Primary Care Provider [phone] REASON FOR VISIT wt loss clinic location Encounters Encounter Location Date Provider Diagnosis Terrance Heard MD [address] [place] [phone] 06/29/2024 Terrance Heard Plan Of Treatment Next Appt Details Provider Name:Terrance cortez, 08/10/2025 07:00:00 AM, [address] [place] [address], [place] [address], [place], [place], [phone], Provider Name:Terrance cortez, 08/17/2025 09:00:00 AM, [address] [place] [address], [address], [phone], Provider Name:Terrance cortez, 02/05/2026 07:00:00 AM, [address], [address], [place], [phone], Provider Name:Terrance Perla ier, 02/12/2026 08:30:00 AM, [facility], [address], [place], [phone], Progress Notes * Denny VASQUEZ ADOB: 2 (63 yo M)Acc No.[id number]:06/29/2024 Patient: Denny TORREZ :1960 A ge:63 Y S ex:Male Address:[address] [place] [address], [place] [address] * true * Date: Generated for Maria R sahu/Samara/Mitziitting on: 07/26/2024 03:20 PM EST
--- OUTSIDE RECORDS SUMMARY | 2024-07-03 08:39 | XMS_ITS ---
Author Organization Terrance Heard MD Address [address] [place] [phone] Care Team Providers Care Tape Fastener Machine Operator Name Role Kaylie FélixMeagann Primary Care Provider REASON FOR VISIT referral Encounters Encounter Location Date Provider Diagnosis Terrance Heard MD [address] [place] [phone] 07/03/2024 Terrance Heard Plan Of Treatment Next Appt Details Provider Name:Terrance cortez, 08/10/2025 07:00:00 AM, [address] [place] [address], Suite [facility], [place], [place], [phone], Provider Name:Terrance cortez, 08/17/2025 09:00:00 AM, [address] [place] [address], Suite [facility], [place], [place], [phone], Provider Name:Terrance cortez, 02/05/2026 07:00:00 AM, [address] [place] [address], [address], [place], [place], [phone], Provider Name:Terrance Perla ier, 02/12/2026 08:30:00 AM, [address], [address], [place], [phone], Progress Notes * Denny VASQUEZ ADOB: 2 (63 yo M)Acc No.[id number]:07/03/2024 Patient: Kamila Denny CERDA A :1960 A ge:63 Y S ex:Male Address:[address] [place] [address] [place] [address] * true * Date: Generated for Maria R sahu/Samara/Jazminsmitting on: 07/26/2024 03:19 PM EST
--- OUTSIDE RECORDS SUMMARY | 2024-07-27 02:00 | XMS_ITS ---
Author Organization Terrance Heard MD Address [address] [place] [phone] Care Team Providers Care Bingo Floater Name Role Phone Terrance Heard Primary Care Provider [phone] Results Component Value Reference Range Notes Lipid Panel with Reflex Reviewed date:07/27/2024 12:48:15 PM Interpretation: Performing Lab:[facility], [address] [place] [phone] Notes/Report: Triglycerides 64 <150 mg/dL Desirable Triglyceride: less than 150 mg/dL Borderline High Triglyceride 150-199 mg/dL High Triglyceride: 200-499 mg/dL Very High Triglyceride: greater than or equal to 5OO mg/dL Cholesterol 127 <200 mg/dL Desirable Cholesterol: less than 200 mg/dL Borderline High Cholesterol: 200-239 mg/dL High Cholesterol: greater than 239 mg/dL LDL Cholesterol Calculated 80 <100 mg/dL Desirable LDL: less than 100 mg/dL Near Optimal/Above Optimal LDL: 110-129 mg/dL Borderline High LDL: 130-159 mg/dL High LDL: 160-189 mg/dL Very High LDL: greater than or equal to 190 mg/dL HDL Cholesterol 35 >40 mg/dL Desirable HDL: greater than 40 mg/dL Note: This HDL assay may give artificially low results in patients with liver disease. REASON FOR VISIT FASTING LIPIDS Encounters Encounter Location Date Provider Diagnosis Terrance Heard MD [address] [place] [address] [place] [phone] 07/27/2024 Terrance Heard Pure hypercholestero lemia E78.00 Assessments Encounter Date Diagnosis (ICD Code) Assessment Notes Treatment Notes Treatment Clinical Notes Section Notes 07/27/2024 Pure hypercholesterolemia (ICD-10 - E78.00) Plan Of Treatment Pending Test Test Name Order Date Liver Panel 07/27/2024 Next Appt Details Provider Name:Terrance cortez, 08/10/2025 07:00:00 AM, [address] [place] [address], [address], [phone], Provider Name:Terrance cortez, 08/17/2025 09:00:00 AM, [address] [place] [address], [address], [phone], Provider Name:Terrance cortez, 02/05/2026 07:00:00 AM, [address] [place] [address], [address], [phone], Provider Name:Terrance cortez, 02/12/2026 08:30:00 AM, [address] [place] [address], [address], [phone], Progress Notes * Denny VASQUEZ ADOB: 2 (64 yo M)Acc No.[id number]:07/27/2024 Progress Note Patient: Denny TORREZ Provider: Ekaterina Heard MD :1960 A ge:63 Y S ex:Male Date:07/27/2024 Address:[address] [place], [place] [phone] Subjective: * Chief Complaints: * 1 . FASTING LIPIDS. * Medical History: Objective: * Vitals: Assessment: * Assessment: 1. P ure hypercholesterolemia - E78.00 (Primary) Plan: * Treatment: * Procedure Codes: 3 6415 VENIPUNCT, ROUTINE* * * The named appointment provid er may or may not be the originator of this progress note, and it is not deemed complete until electronically signed by the appointment provider. Sign off status: Pending * Provider: Ekaterina Heard MD Date: 0 07/27/2024 Generated for Maria R sahu/Samara/Joni on: 1 07/26/2024 03:18 PM EST
--- OUTSIDE RECORDS SUMMARY | 2024-08-03 02:45 | XMS_ITS ---
Author Organization Terrance Heard MD Address [address] [place] [phone] Care Team Providers Care Birth Attendant Name Role Phone Terrance Heard Primary Care Provider [phone] Allergies Allergen (clinical drug ingredient) Drug/Non Drug Allergy documented on EMR Reaction Allergy Type Onset Date Status penicillin (uncoded) tongue swelling Allergy Active REASON FOR VISIT 6 MO F/U Medications Medication SIG (Take, Route, Frequency, Duration) Notes Start Date End Date Status Atorvastatin Calcium 40 MG TAKE ONE TABL ET BY MOUTH EVERY DAY Active Tadalafil 10 MG TAKE ONE TABLET BY M OUTH EVERY DAY NEEDED. for 30 Active Losartan Potassium 100 MG TAKE ONE TABLE T BY MOUTH EVERY DAY Active Pantoprazole Sodium 40 MG TAKE ONE TABLE T BY MOUTH EVERY DAY for 30 Active ProAir HFA 108 (90 Base) MCG/ACT 2 puffs as needed Inhalation every 4 hrs 09/11/2013 Active Vital Signs Blood pressure systolic 124 mm Hg 08/03/19 25 Blood pressure diastolic 82 mm Hg 025 Height 73 in 08/03/2024 Weight 281 lbs 08/03/2024 BMI 37.07 kg/m2 08/03/2024 Encounters Encounter Location Date Provider Diagnosis Terrance Heard MD [address] [place] [phone] 08/03/2024 Terrance Heard Essential hypertensi on I10 and Pure hypercholesterolemia E78.00 Assessments Encounter Date Diagnosis (ICD Code) Assessment Notes Treatment Notes Treatment Clinical Notes Section Notes 08/03/2024 Essential hypertensi on (ICD-10 - I10) well controlled, will continue current regiment 08/03/2024 Pure hypercholesterolemia (ICD-10 - E78.00) doing well on meds, will continue current regiment Plan Of Treatment Medication Medication Name Sig Start Date Stop Date Notes Atorvastatin Calcium 40 MG TAKE ONE TABL ET BY MOUTH EVERY DAY Losartan Potassium 100 MG TAKE ONE TABLE T BY MOUTH EVERY DAY Treatment Notes Assessment Notes Essential hypertension well controlled, will continue current regiment Pure hypercholesterolemia doing well on meds, will continue current regiment Next Appt Details Provider Name:Terrance cortez, 08/10/2025 07:00:00 AM, [address] [place] [address], [address], [phone], Provider Name:Terrance cortez, 08/17/2025 09:00:00 AM, [address] [place] [address], [phone], Provider Name:Terrance cortez, 02/05/2026 07:00:00 AM, [address] [place] [address], [phone], Provider Name:Terrance cortez, 02/12/2026 08:30:00 AM, [address] [place] [address], [phone], Progress Notes * Denny VASQUEZ ADOB: 2 (63 yo M)Acc No.[id number]:08/03/2024 Progress Notes Patient: Denny TORREZ Provider: Ekaterina Heard MD :1960 A ge:63 Y S ex:Male Date:08/03/2024 Address:[address] [place], [place] [address], [phone] Subjective: * Chief Complaints: * 6 MO F/U * HPI: S ymptom(s): patient is a 63 yo male here for 6 month follow up visit. * ROS: G eneral/Constitutional: Denies C hills. [...] Denies D iarrhea. D enies N ausea. M usculoskeletal: Patient denies m uscle aches. P eripheral Vascular: Patient denies r ed [...] Vitals: H t: 73, Wt: 281, BMI:37.07, BP:124/82, Wt-k.46. * P ast Orders: L ab:Lipid Panel with Reflex (Order Date - 07/27/2024) (Collection Date & Time - 07/27/2024 09:48 AM) Value Reference Range Triglycerides 64 <150 - mg/dL Cholesterol 127 <200 - mg/dL LDL Cholesterol Calculated 80 <100 - mg/dL HDL Cholesterol 35 L >40 - mg/dL * Examination: G eneral Examination: GENERAL APPEARANCE: w ell developed, well nourished, male.? HEAD: n ormocephalic. SKIN: g ood turgor. HEART: r egular rate and rhythm, no murmurs, rubs, gallops.? LUNGS: n o wheezes, rales, rhonchi, good air movement, clear to auscultation bilaterally. Assessment: * Assessment: 1. E ssential hypertension - I10 (Primary) 2 . P ure hypercholesterolemia - E78.00 Plan: * Treatment: 2. P ure hypercholesterolemia Continue Atorvastatin Calcium Tablet, 40 MG, TAKE ONE TABLET BY MOUTH EVERY DAY. Notes: doing well on meds, will continue current regiment * Procedure Codes: * * Sign off status: Completed true * Provider: Ekaterina Heard MD Date: 0 08/03/2024 Generated for Maria R sahu/Samara/eTransmitting on: 1 07/26/2024 03:20 PM EST History and Physical Notes * HPI (History of Present Illness) Category Sub-Category Detail Notes Category Not es Symptom(s) patient is a 63 yo male here for 6 month follow up visit. Examination Category Sub-Category Detail Notes Category Not es General Examination GENERAL APPEARANCE: well dev eloped, well nourished, male HEAD: normocephalic HEART: regular rate and rhy thm, no murmurs, rubs, gallops LUNGS: no wheezes, rales, r honchi, good air movement, clear to auscultation bilaterally SKIN: good turgor
--- OUTSIDE RECORDS SUMMARY | 2025-02-01 02:00 | XMS_ITS ---
Author Organization Terrance Heard MD Address [address] [place] [phone] Care Team Providers Care Oil Well Service Operator Helper Name Role Phone Félix Terrance Primary Care Provider [phone] Results Component Value Reference Range Notes Complete Blood Count Auto Di ff Reviewed date:02/01/2025 05:12:03 PM Interpretation: Performing Lab:[facility], [address] [place] [phone] Notes/Report: White Blood Count 6.6 4.8-10.8 X10*3/uL Red Blood Count 4.94 4.60-5.80 X10*6/uL Hemoglobin 14.8 14.0-18.0 g/dl Hematocrit 44.6 42.0-52.0 % Mean Corpuscular Volume 90.3 80.0-98.0 fL Mean Corpuscular Hemoglobin 30.0 27.0-33.0 pg Mean Corpuscular HGB Conc 33.2 31.0-36.0 g/dl Red Cell Distribution Width 13.1 11.0-16.0 % Platelet Count 262 160-400 X10*3/uL Mean Platelet Volume 9.6 9.4-12.4 fL Neutrophils Percent Auto 66.8 45-73 % Imm Gran Pct Auto 0.3 0.0-0.4 % Lymphocytes Percent Auto 19.8 20-40 % Monocytes Percent Auto 9.7 2-11 % Eosinophils Percent Auto 2.6 0-4 % Basophils Percent Auto 0.8 0-2 % NRBC Pct Auto 0.0 0.0-0.2 /100WBC Neutrophils Absolute Auto 4.4 2.0-8.3 x10*3/u L Imm Gran Abs Auto 0.02 0.00-0.03 X10*3/uL Lymphocytes Absolute Auto 1.3 1.2-4.9 X10*3/u L Monocytes Absolute Auto 0.6 0.1-1.2 X10*3/uL Eosinophils Absolute Auto 0.2 0.0-0.4 X10*3/u L Basophils Absolute Auto 0.1 0.0-0.2 X10*3/uL NRBC Abs Auto 0.000 0.0-0.012 X10*3/uL Comprehensive [place]. Panel Fa st Reviewed date:02/02/2025 06:45:07 PM Interpretation: Performing Lab:[facility], [address] [place] [phone] Notes/Report: Sodium 139 135-145 mmol/L Potassium 4.3 3.3-5.1 mmol/L Chloride 106 96-108 mmol/L Carbon Dioxide 28 22-29 mmol/L Anion Gap 9 12-20 Blood Urea Nitrogen 25 9-16 mg/dL Creatinine 1.14 0.5-1.4 mg/dL Estimated Glomerular Filt Rate > 60 Chronic Kidney Disease: Estimated GFR < 60 mL/min/1.73m2 Severe Kidney Disease: Estimated GFR < 15 mL/min/1.73m2 Glucose Fasting 86 60-99 mg/dL Calcium 9.2 8.4-10.2 mg/dL Bilirubin Total 0.6 0.0-1.0 mg/dL Aspartate Amino Transferase 25 5-37 U/L Alanine Aminotransferase 32 0-40 U/L Total Protein 7.0 6.5-8.0 g/dL Albumin Level 4.2 3.5-5.0 g/dL Alkaline Phosphatase 62 39-117 U/L Lipid Panel Reviewed date:02/01/2025 05:09:44 PM Interpretation: Performing Lab:[address] [phone] Notes/Report: Triglycerides 49 <150 mg/dL Desirable Triglyceride: less than 150 mg/dL Borderline High Triglyceride 150-199 mg/dL High Triglyceride: 200-499 mg/dL Very High Triglyceride: greater than or equal to 5OO mg/dL Cholesterol 117 <200 mg/dL Desirable Cholesterol: less than 200 mg/dL Borderline High Cholesterol: 200-239 mg/dL High Cholesterol: greater than 239 mg/dL LDL Cholesterol Calculated 75 <100 mg/dL Desirable LDL: less than 100 mg/dL Near Optimal/Above Optimal LDL: 110-129 mg/dL Borderline High LDL: 130-159 mg/dL High LDL: 160-189 mg/dL Very High LDL: greater than or equal to 190 mg/dL HDL Cholesterol 33 >40 mg/dL Desirable HDL: greater than 40 mg/dL Note: This HDL assay may give artificially low results in patients with liver disease. PSA,Total (Free>4and<10) Reviewed date:02/01/2025 05:09:32 PM Interpretation: Performing Lab:[address] [phone] Notes/Report: PSA,Total (Free>4and<10) 1.06 0.00-4.00 ng/mL A Free PSA was not performed: The percentage of Free PSA can be used to enhance the differentiation of prostate cancer from benign prostatic disease in subjects whose PSA levels are between 4.0 and 10.0 ng/mL. For subjects whose PSA levels are below 4.0 or above 10.0 ng/mL, the risk of prostate cancer is determined on the basis of the PSA alone. Therefore the % Free PSA is recommended only for those subjects whose PSA levels are between 4.0 and 10.0 ng/mL. PSA methodology: Oh Alinity i Chemiluminescent Microparticle Immunoassay (CMIA) UA ClnCatch+Micro w/rflx Cul t Reviewed date:02/02/2025 06:50:21 PM Interpretation: Performing Lab:[address] [phone] Notes/Report: Urine, Clean Catch Color Urine Yellow Appearance Urine Clear PH 6.0 5.0-9.0 Glucose Urine UA Negative Negative mg/dL Urine Blood Negative Negative Specific [place] - Urine 1.025 1.005-1.025 Urine Protein Negative Neg-Trace mg/dL Urine Ketones Negative Negative mg/dL Nitrite Urine Negative Negative Leukocyte Esterase Urine Negative Negative RBC Urine 0-2 0-2 /HPF WBC Urine 0-5 0-5 /HPF Squamous Epithelial Cell Urine 0-2 0-2 /HPF Bacteria Urine None Seen None Seen Hyaline Casts Urine 0-2 0-2 /LPF REASON FOR VISIT FASTING LABS Encounters Encounter Location Date Provider Diagnosis Terrance Heard MD [address] [place] [address] [place] [phone] 02/01/2025 Terrance Heard Blood tests for rout ine general physical examination Z00.00 ; Essential hypertension I10 ; Elevated WBC count D72.829 and Pure hypercholesterolemia E78.00 Assessments Encounter Date Diagnosis (ICD Code) Assessment Notes Treatment Notes Treatment Clinical Notes Section Notes 02/01/2025 [address] tests [address] ine general physical examination (ICD-10 - Z00.00) 02/01/2025 Essential hypertensi on (ICD-10 - I10) 02/01/2025 Elevated WBC count (ICD-10 - D72.829) 02/01/2025 Pure hypercholesterolemia (ICD-10 - E78.00) Plan Of Treatment Next Appt Details Provider Name:Terrance cortez, 08/10/2025 07:00:00 AM, [address] [place] [address], [address], [phone], Provider Name:Terrance cortez, 08/17/2025 09:00:00 AM, [address] [place] [address], [address], [phone], Provider Name:Terrance cortez, 02/05/2026 07:00:00 AM, [address] [place] [address], [address], [phone], Provider Name:Terrance cortez, 02/12/2026 08:30:00 AM, [address] [place] [address], [address], [phone], Progress Notes * Denny VASQUEZ ADOB: [birth year] (64 yo M)Acc No.[id number]:02/01/2025 Progress Note Patient: Denny TORREZ Provider: Ekaterina Heard MD :1960 A ge:64 Y S ex:Male Date:02/01/2025 Address:[address] [place], [place] [phone] Subjective: * Chief Complaints: * 1 . FASTING LABS. * Medical History: Objective: * Vitals: Assessment: * Assessment: 1. B lood tests for routine general physical examination - Z00.00 (Primary) 2 .?Essential hypertension - I10 3 . E levated WBC count - D72.829 ?4. P ure hypercholesterolemia - E78.00 Plan: * Treatment: 2. E ssential hypertension L AB: Complete Blood Count Auto Diff (Collection Date & Time - 02/01/2025 07:00 AM) L AB: Comprehensive [place]. Panel Fast (Collection Date & Time - 02/01/2025 07:00 AM) L AB: Lipid Panel (Collection Date & Time - 02/01/2025 07:00 AM) L AB: PSA,Total (Free>4and<10) (Collection Date & Time - 02/01/2025 07:00 AM) L AB: UA ClnCatch+Micro w/rflx Cult (Collection Date & Time - 02/01/2025 07:00 AM) 3. E levated WBC count L AB: Complete Blood Count Auto Diff (Collection Date & Time - 02/01/2025 07:00 AM) L AB: Comprehensive [place]. Panel Fast (Collection Date & Time - 02/01/2025 07:00 AM) L AB: Lipid Panel (Collection Date & Time - 02/01/2025 07:00 AM) L AB: PSA,Total (Free>4and<10) (Collection Date & Time - 02/01/2025 07:00 AM) L AB: UA ClnCatch+Micro w/rflx Cult (Collection Date & Time - 02/01/2025 07:00 AM) 4. P ure hypercholesterolemia L AB: Complete Blood Count Auto Diff (Collection Date & Time - 02/01/2025 07:00 AM) L AB: Comprehensive [place]. Panel Fast (Collection Date & Time - 02/01/2025 07:00 AM) L AB: Lipid Panel (Collection Date & Time - 02/01/2025 07:00 AM) L AB: PSA,Total (Free>4and<10) (Collection Date & Time - 02/01/2025 07:00 AM) L AB: UA ClnCatch+Micro w/rflx Cult (Collection Date & Time - 02/01/2025 07:00 AM) * Procedure Codes: 3 6415 VENIPUNCT, ROUTINE* * * The named appointment provid er may or may not be the originator of this progress note, and it is not deemed complete until electronically signed by the appointment provider. Sign off status: Pending * Provider: Ekaterina Heard MD Date: 0 02/01/2025 Generated for Maria R sahu/Samara/Mitziitting on: 1 07/26/2024 03:19 PM EST
--- OUTSIDE RECORDS SUMMARY | 2025-02-08 03:30 | XMS_ITS ---
Author Organization Terrance Heard MD Address [address] [place] [phone] Care Team Providers Care Behavioral Health Therapist Name Role Phone Terrance Heard Primary Care Provider Allergies Allergen (clinical drug ingredient) Drug/Non Drug Allergy documented on EMR Reaction Allergy Type Onset Date Status penicillin (uncoded) tongue swelling Allergy Active Results Component Value Reference Range Notes Occult Blood, Stool, Guaiac Reviewed date:02/08/2025 12:23:07 PM Interpretation:Negative Performing Lab: Notes/Report: Negative Occult Blood, Stool, Guaiac Neg REASON FOR VISIT ANNUAL EXAM Medications Medication SIG (Take, Route, Frequency, Duration) Notes Start Date End Date Status ProAir HFA 108 (90 Base) MCG/ACT 2 puffs as needed Inhalation every 4 hrs 09/11/2013 Active Atorvastatin Calcium 40 MG TAKE ONE TABL ET BY MOUTH EVERY DAY Active Losartan Potassium 100 MG TAKE ONE TABLE T BY MOUTH EVERY DAY Active Tadalafil 10 MG TAKE ONE TABLET BY M OUTH EVERY DAY NEEDED for 30 Active Pantoprazole Sodium 40 MG TAKE ONE TABLE T BY MOUTH EVERY DAY for 30 Active Social History Tobacco Use: Social History Observation [...] Never (0 point) Points 1 Interpretation Negative Vital Signs Blood pressure systolic 102 mm Hg 02/09/20 25 Blood pressure diastolic 60 mm Hg 025 Height 73 in 02/08/2025 Weight 235 lbs 02/08/2025 BMI 31 kg/m2 02/08/2025 weight is down 46 pounds [facility] 2-27 Encounters Encounter Location Date Provider Diagnosis Terrance Heard MD [address] [place] [address] [place] [phone] 02/08/2025 Terrance Heard Annual physical exam Z00.00 ; Mild intermittent asthma without complication J45.20 ; Essential hypertension I10 ; Pure hypercholesterolemia E78.00 ; Colon cancer screening Z12.11 and Depression screening Z13.31 Assessments Encounter Date Diagnosis (ICD Code) Assessment Notes Treatment Notes Treatment Clinical Notes Section Notes 02/08/2025 Annual physical exam (ICD-10 - Z00.00) labs reviewed and discussed with patient 02/08/2025 Mild intermittent as thma without complication (ICD-10 - J45.20) stable, will continue current regiment 02/08/2025 Essential hypertensi on (ICD-10 - I10) doing well, will contiue current regiment 02/08/2025 Pure hypercholesterolemia (ICD-10 - E78.00) stable, will continue current regiment 02/08/2025 Colon cancer screeni ng (ICD-10 - Z12.11) guaaiac negative 02/08/2025 Depression screening (ICD-10 - Z13.31) negative screen Plan Of Treatment Medication Medication Name Sig Start Date Stop Date Notes ProAir HFA 108 (90 Base) MCG/ACT 2 puffs as needed Inhalation every 4 hrs 09/11/2013 Atorvastatin Calcium 40 MG TAKE ONE TABL ET BY MOUTH EVERY DAY Losartan Potassium 100 MG TAKE ONE TABLE T BY MOUTH EVERY DAY Treatment Notes Assessment Notes Annual physical exam labs reviewed and d iscussed with patient Mild intermittent asthma without complic ation stable, will continue current regiment Essential hypertension doing well, will contiue current regiment Pure hypercholesterolemia stable, will c ontinue current regiment Colon cancer screening guaaia negative Depression screening negative screen Next Appt Details Follow Up: 6 Months, Reason: Provider Name:Terrance cortez, 08/10/2025 07:00:00 AM, [address] [place] [address], Suite [facility], [place], [place], [phone], Provider Name:Terrance cortez, 08/17/2025 09:00:00 AM, [address] [place] [address], Suite [facility], [place], [place], [phone], Provider Name:Terrance cortez, 02/05/2026 07:00:00 AM, [address] [place] [address], Suite [facility], [place], [place], [phone], Provider Name:Terrance cortez, 02/12/2026 08:30:00 AM, [address] [place] [address], Suite [facility], [place], [place], [phone], Progress Notes * JENNYTEDenny ADOB: 2 (64 yo M)Acc No.[id number]:02/08/2025 Progress Notes Patient: Denny TORREZ A Provider: Ekaterina Heard MD :1960 A ge:64 Y S ex:Male Date:02/08/2025 Address:[address] [place] [address] [id number] Subjective: * Chief Complaints: * A NNUAL EXAM * HPI: D epression Screening: PHQ-9 L ittle interest or pleasure in doing things N ot at all, F eeling down, depressed, or hopeless N ot at all, T rouble falling or staying asleep, or sleeping too much N ot at all, F eeling tired or having little energy N ot at all, P oor appetite or overeating N ot at all, F eeling bad about yourself or that you are a failure, or have let yourself or your family down N ot at all, T rouble concentrating on things, such as reading the newspaper or watching television N ot at all, M oving or speaking so slowly that other people could have noticed; or the opposite, being so fidgety or restless that you have been moving around a lot more than usual N ot at all, T houghts that you would be better off or of hurting yourself in some way N ot at all, T otal Score 0 . I nterpretation and Intervention D epression Screening Findings N egative, F ollow-Up for Depression : review of PHQ-9 found negative result, no follow-up needed. C ommunication Needs: Communication Needs D oes the patient have a hearing impairment N o, D oes the patient have a vision impairment? Y es, I f yes, what is the vision impairment? G lasses, D oes the patient have a cognition impairment? N o. F all Risk: History H ave you had any falls with injury in the past year? N o, H ave you had two or more falls in the past year? N o. S ELIZABETH Questions: SDOH Questions I n the past year have you been worried about losing housing? N o, I n the past year have you or any family members you live with been unable to get any of the following when it was really needed? Check all that apply: N one. S ymptom(s): patient is a 64 yomale here for annual visit with review of recent labs and follow up of chronic issues. * ROS: G eneral/Constitutional: Change in appetite d enies. C hills d enies. F ever d enies. O phthalmologic: Blurred vision d enies. D ischarge d enies. P ain d enies. E NT: Decreased hearing d enies. S ore throat d enies.?Swollen glands d enies. E ndocrine: Cold intolerance d enies. E xcessive thirst d enies. H eat intolerance d enies. W eight loss d enies. R espiratory: Cough d enies. S hortness of breath at rest d enies. S hortness of breath with exertion d enies. W heezing d enies. C ardiovascular: Chest pain at rest d enies. C hest pain with exertion?denies. I rregular heartbeat d enies. S hortness of breath d enies. ? G astrointestinal: Abdominal pain d enies. C hange in bowel habits d enies. D iarrhea d enies. N ausea d enies. R ectal bleeding d enies. V omiting d enies . G enitourinary: Blood in urine d enies. D ifficulty urinating d enies. F requent urination d enies. M usculoskeletal: Painful joints d enies. W eakness d enies. ? S kin: Dry skin d enies. I tching d enies. D enies?Mole(s), changes in moles, new moles or any lesions of concern. D enies P hotosensitivity. R douglas d enies. N eurologic: Dizziness d enies. F ainting d enies. H eadache?denies. * Medical History: * Surgical History: * Hospitalization/Major Diagno stic Procedure: * Family History: F ather: 79 yrs, emphysema, chronic obstructive pulmonary disease. M other: 87 yrs, diagnosed with Cancer. 2 brother(s) , 1 sister(s) - healthy. 1 son(s) , 1 daughter(s) - healthy. . Mother- healthy, Denies mental health/substance abuse family history, Denies mental health/substance abuse family history, No pertinent family medical history, No pertinent family medical history, No pertinent family medical history. * Social History: T obacco Use: T obacco Use/Smoking P atient is a n onsmoker, A dditional Findings: Tobacco Non-User C urrent non-smoker, currently using no form of tobacco. D rugs/Alcohol: A lcohol Screen D id you have a drink containing alcohol in the past year? Y es, H ow often did you have a drink containing alcohol in the past year? M onthly or less (1 point), H ow many drinks did you have on a typical day when you were drinking in the past year? 1 or 2 drinks (0 point), H ow often did you have 6 or more drinks on one occasion in the past year? N ever (0 point), P oints 1 , I nterpretation N egative. M iscellaneous: C affeine: yes, frequency:, 1 cup. Children: yes. Community involvements: yes. Exercise: yes, walking 2 miles QD. Housing: living with relatives. Living with: family. Marital status: . Occupation: works full-time. Pets: none. * Medications: T akingProAir HFA 108 (90 Base) MCG/ACT Aerosol Solution 2 puffs as needed Inhalation every 4 hrs Atorvastatin Calcium 40 MG Tablet TAKE ONE TABLET BY MOUTH EVERY DAY Losartan Potassium 100 MG Tablet TAKE ONE TABLET BY MOUTH EVERY DAY Tadalafil 10 MG Tablet TAKE ONE TABLET BY MOUTH EVERY DAY NEEDED Pantoprazole Sodium 40 MG Tablet Delayed Release TAKE ONE TABLET BY MOUTH EVERY DAY Medication List reviewed and reconciled with the patientTaking ProAir HFA 108 (90 Base) MCG/ACT Aerosol Solution 2 puffs as needed Inhalation every 4 hrs Taking Atorvastatin Calcium 40 MG Tablet TAKE ONE TABLET BY MOUTH EVERY DAY Taking Losartan Potassium 100 MG Tablet TAKE ONE TABLET BY MOUTH EVERY DAY Taking Tadalafil 10 MG Tablet TAKE ONE TABLET BY MOUTH EVERY DAY NEEDED Taking Pantoprazole Sodium 40 MG Tablet Delayed Release TAKE ONE TABLET BY MOUTH EVERY DAY Medication List reviewed and reconciled with the patient * Allergies: p enicillin: tongue swellingyes[Allergies Verified] Objective: * Vitals: H t: 73, Wt: 235, BMI:31, BP:102/60, Wt-k.6. weight is down 46 pounds since 08-03-24. * P ast Orders: L ab:PSA,Total (Free>4and<10) (Order Date - 02/01/2025) (Collection Date & Time - 02/01/2025 07:00 AM) Value Reference Range PSA,Total (Free>4and<10) 1.06 0.00-4.00 - ng/ mL L ab:Complete Blood Count Auto Diff (Order Date - 02/01/2025) (Collection Date & Time - 02/01/2025 07:00 AM) Value Reference Range White Blood Count 6.6 4.8-10.8 - X10*3/uL Red Blood Count 4.94 4.60-5.80 - X10*6/uL Hemoglobin 14.8 14.0-18.0 - g/dl Hematocrit 44.6 42.0-52.0 - % Mean Corpuscular Volume 90.3 80.0-98.0 - fL Mean Corpuscular Hemoglobin 30.0 27.0-33.0 - pg Mean Corpuscular HGB Conc 33.2 31.0-36.0 - g/ dl Red Cell Distribution Width 13.1 11.0-16.0 - % Platelet Count 262 160-400 - X10*3/uL Mean Platelet Volume 9.6 9.4-12.4 - fL Neutrophils Percent Auto 66.8 45-73 - % Imm Gran Pct Auto 0.3 0.0-0.4 - % Lymphocytes Percent Auto 19.8 L 20-40 - % Monocytes Percent Auto 9.7 2-11 - % Eosinophils Percent Auto 2.6 0-4 - % Basophils Percent Auto 0.8 0-2 - % NRBC Pct Auto 0.0 0.0-0.2 - /100WBC Neutrophils Absolute Auto 4.4 2.0-8.3 - x10* 3/uL Imm Gran Abs Auto 0.02 0.00-0.03 - X10*3/uL Lymphocytes Absolute Auto 1.3 1.2-4.9 - X10* 3/uL Monocytes Absolute Auto 0.6 0.1-1.2 - X10*3/ uL Eosinophils Absolute Auto 0.2 0.0-0.4 - X10* 3/uL Basophils Absolute Auto 0.1 0.0-0.2 - X10*3/ uL NRBC Abs Auto 0.000 0.0-0.012 - X10*3/uL L ab:Lipid Panel (Order Date - 02/01/2025) (Collection Date & Time - 02/01/2025 07:00 AM) Value Reference Range Triglycerides 49 <150 - mg/dL Cholesterol 117 <200 - mg/dL LDL Cholesterol Calculated 75 <100 - mg/dL HDL Cholesterol 33 L >40 - mg/dL L ab:UA ClnCatch+Micro w/rflx Cult (Order Date - 02/01/2025) (Collection Date & Time - 02/01/2025 07:00 AM) Value Reference Range Color Urine Yellow - Appearance Urine Clear - PH 6.0 5.0-9.0 - Glucose Urine UA Negative Negative - mg/dL Urine Blood Negative Negative - Specific [place] - Urine 1.025 1.005-1.025 - Urine Protein Negative Neg-Trace - mg/dL Urine Ketones Negative Negative - mg/dL Nitrite Urine Negative Negative - Leukocyte Esterase Urine Negative Negative - RBC Urine 0-2 0-2 - /HPF WBC Urine 0-5 0-5 - /HPF Squamous Epithelial Cell Urine 0-2 0-2 - /HP F Bacteria Urine None Seen None Seen - Hyaline Casts Urine 0-2 0-2 - /LPF L ab:Comprehensive [place]. Panel Fast (Order Date - 02/01/2025) (Collection Date & Time - 02/01/2025 07:00 AM) Value Reference Range Sodium 139 135-145 - mmol/L Bilirubin Total 0.6 0.0-1.0 - mg/dL Aspartate Amino Transferase 25 5-37 - U/L Alanine Aminotransferase 32 0-40 - U/L Total Protein 7.0 6.5-8.0 - g/dL Albumin Level 4.2 3.5-5.0 - g/dL Alkaline Phosphatase 62 39-117 - U/L Potassium 4.3 3.3-5.1 - mmol/L Chloride 106 96-108 - mmol/L Carbon Dioxide 28 22-29 - mmol/L Anion Gap 9 L 12-20 - Blood Urea Nitrogen 25 H 9-16 - mg/dL Creatinine 1.14 0.5-1.4 - mg/dL Estimated Glomerular Filt Rate > 60 - Glucose Fasting 86 60-99 - mg/dL Calcium 9.2 8.4-10.2 - mg/dL * Examination: G eneral Examination: GENERAL APPEARANCE: w ell developed, well nourished, in no acute distress. HEAD: n ormocephalic, atraumatic. EYES: p upils equal, round, reactive to light and accommodation, sclera non-icteric. EARS: n ormal. ORAL CAVITY: m ucosa moist. THROAT: c lear. NECK/THYROID: n alexy supple, full range of motion, no cervical lymphadenopathy, no bruits. SKIN: w arm and dry, no suspicious lesions. HEART: r egular rate and rhythm, S1, S2 normal, no murmurs.? LUNGS: c lear to auscultation bilaterally. ABDOMEN: s oft, nontender, nondistended, bowel sounds present, normal, no organomegaly , no masses palpable. RECTAL EXAM: n ormal tone, no external hemorrhoids, no masses palpable, prostate normal, stool guaiac negative. MALE GENITOURINARY: n o testicular mass, testes descended bilaterally. EXTREMITIES: n o clubbing, cyanosis, or edema. NEUROLOGIC: n onfocal, motor strength normal upper and lower extremities, sensory exam intact. Assessment: * Assessment: 1. A nnual physical exam - Z00.00 (Primary) 2 . M ild intermittent asthma without complication - J45.20 3 . E ssential hypertension - I10 4 . P ure hypercholesterolemia - E78.00 5 . C olon cancer screening - Z12.11 6. D epression screening - Z13.31 Plan: * Treatment: 2. M ild intermittent asthma without complication Continue ProAir HFA Aerosol Solution, 108 (90 Base) MCG/ACT, 2 puffs as needed, Inhalation, every 4 hrs. Notes: stable, will continue current regiment 3. E ssential hypertension Continue Losartan Potassium Tablet, 100 MG, TAKE ONE TABLET BY MOUTH EVERY DAY. Notes: doing well, will contiue current regiment 4. P ure hypercholesterolemia Continue Atorvastatin Calcium Tablet, 40 MG, TAKE ONE TABLET BY MOUTH EVERY DAY. Notes: stable, will continue current regiment 5. C olon cancer screening L AB: Occult Blood, Stool, Guaiac (Collection Date & Time - 02/08/2025) N egative Value Reference Range O ccult Blood, Stool, Guaiac Neg Notes: guaaiac negative??6.?Depression screening? Notes: negative screen?? * Procedure Codes: 8 2270 TEST FOR BLOOD, FECES * Follow Up: 6 Months * * Sign off status: Completed true * Provider: Ekaterina Heard MD Date: 0 02/08/2025 Generated for Summeri adelina/Samara/eTsimbasmitting on: 1 07/26/2024 03:19 PM EST History and Physical Notes * HPI (History of Present Illness) Category Sub-Category Detail Notes Category Not es Symptom(s) patient is a 64 yomale here for annual visit with review of recent labs and follow up of chronic issues Depression Screening PHQ-9 Little inte rest or pleasure in doing things: Not at all Feeling down, depressed, or hopeless: No t at all Trouble falling or staying asleep, or sl eeping too much: Not at all Feeling tired or having little energy: N ot at all Poor appetite or overeating: Not at all Feeling bad about yourself o r that you are a failure, or have let yourself or your family down: Not at all Trouble concentrating on thi ngs, such as reading the newspaper or watching television: Not at all Moving or speaking so slowly that other people could have noticed; or the opposite, being so fidgety or restless that you have been moving around a lot more than usual: Not at all Thoughts that you would be b danielle off or of hurting yourself in some way: Not at all Total Score: 0 Interpretation and Intervention Depression Matt carroll Findings: Negative Follow-Up for Depression: : review of PH Q-9 found negative result, no follow-up needed SDOH Questions SDOH Questions In the past year have you been worried about losing housing?: No In the past year have you or any family members you live with been unable to get any of the following when it was really needed? Check all that apply:: None Fall Risk History Have you had any falls with injury i n the past year?: No Have you had two or more falls in the st year?: No Communication Needs Communication Needs Does the patient have a hearing impairment: No Does the patient have a vision impairmen t?: Yes If yes, what is the vision impairment?: Glasses Does the patient have a cognition impair ment?: No Examination Category Sub-Category Detail Notes Category Not es General Examination GENERAL APPEARANCE: well dev eloped, well nourished, in no acute distress HEAD: normocephalic, atrau matic EYES: pupils equal, round, reactive to light and accommodation, sclera non-icteric EARS: normal THROAT: clear NECK/THYROID: neck supple, full ra nge of motion, no cervical lymphadenopathy, no bruits HEART: regular rate and rhy thm, S1, S2 normal, no murmurs LUNGS: clear to auscultatio n bilaterally ABDOMEN: soft, nontender, non distended, bowel sounds present, normal, no organomegaly , no masses palpable NEUROLOGIC: nonfocal, motor stre ngth normal upper and lower extremities, sensory exam intact SKIN: warm and dry, no mago picious lesions EXTREMITIES: no clubbing, cyanosi s, or edema MALE GENITOURINARY: no testicular mass, testes descended bilaterally RECTAL EXAM: normal tone, no exte rnal hemorrhoids, no masses palpable, prostate normal, stool guaiac negative ORAL CAVITY: mucosa moist
--- OUTSIDE RECORDS SUMMARY | 2025-03-09 06:14 | XMS_ITS ---
Author Organization Terrance Heard MD Address [address] [place] [phone] Care Team Providers Care Refuse Driver Name Role Kaylie FélixMeagann Primary Care Provider [phone] REASON FOR VISIT Dischrge summary rec'd Encounters Encounter Location Date Provider Diagnosis Terrance Heard MD [address] [place] [phone] 03/09/2025 Terrance Heard Plan Of Treatment Next Appt Details Provider Name:Terrance cortez, 08/10/2025 07:00:00 AM, [address] [place] [address], Suite [facility], [place], [place], [phone], Provider Name:Terrance cortez, 08/17/2025 09:00:00 AM, [address] [place] [address], [place] [address], [place], [place], [phone], Provider Name:Terrance cortez, 02/05/2026 07:00:00 AM, [address], [address], [place], [place], [phone], Provider Name:Terrance Yobany Pan ier, 02/12/2026 08:30:00 AM, [address], [address], [place], [phone], Progress Notes * Denny VASQUEZ ADOB: 2 (64 yo M)Acc No.[id number]:03/09/2025 Patient: Kamila Denny CERDA A :1960 A ge:64 Y S ex:Male Address:[address] [place] [id number] * true * Date: Generated for Marai R sahu/Samara/Jazminsmitting on: 07/26/2024 03:19 PM EST
--- OUTSIDE RECORDS SUMMARY | 2025-03-22 08:30 | XMS_ITS ---
Author Organization Terrance Heard MD Address [address] [place] [id number] Care Team Providers Care Rounder And Backer Name Role Phone Terrance Heard Primary Care Provider [phone] Allergies Allergen (clinical drug ingredient) Drug/Non Drug Allergy documented on EMR Reaction Allergy Type Onset Date Status penicillin (uncoded) tongue swelling Allergy Active REASON FOR VISIT F/U ERV Kidney stones Medications Medication SIG (Take, Route, Frequency, Duration) Notes Start Date End Date Status Atorvastatin Calcium 40 MG TAKE ONE TABL ET BY MOUTH EVERY DAY for 90 Active Pantoprazole Sodium 40 MG TAKE ONE TABLE T BY MOUTH EVERY DAY for 30 Active ProAir HFA 108 (90 Base) MCG/ACT 2 puffs as needed Inhalation every 4 hrs 09/11/2013 Active Losartan Potassium 100 MG TAKE ONE TABLE T BY MOUTH EVERY DAY Active Tadalafil 10 MG TAKE ONE TABLET BY M OUTH EVERY DAY NEEDED for 30 Active Problems Problem Type SNOMED Code ICD Code Onset Dates Problem Status W/U Status Risk Notes Problem Kidney stone (93813454) Kidney stone (N20.0) Active confirmed Problem Hydroureter (41262206) Hydroureter (N13.4) Active confirmed Vital Signs Blood pressure systolic 102 mm Hg 03/22/20 25 Blood pressure diastolic 64 mm Hg 025 Height 73 in 03/22/2025 Weight 230 lbs 03/22/2025 BMI 30.34 kg/m2 03/22/2025 weight is down 5 pounds [facility] 02-08-25 Encounters Encounter Location Date Provider Diagnosis Terrance Heard MD [address] [place] [address] [place] [phone] 03/22/2025 Terrance Heard Kidney stone N20.0 ; Hydroureter N13.4 and Eczema L30.9 Assessments Encounter Date Diagnosis (ICD Code) Assessment Notes Treatment Notes Treatment Clinical Notes Section Notes 03/22/2025 Kidney stone (ICD-10 - N20.0) pending dignostic testing, order faxed to [facility] dept 03/22/2025 Hydroureter (ICD-10 - N13.4) 03/22/2025 Eczema (ICD-10 - L30.9) to use triamcinolone Plan Of Treatment Treatment Notes Assessment Notes Kidney stone pending dignostic te sting, order faxed to [facility] dept Eczema to use triamcinolone Pending Test Test Name Order Date RENAL US WITH BLADDER 03/22/2025 Next Appt Details Provider Name:Terrance cortez, 08/10/2025 07:00:00 AM, [address] [place] [address], Suite [facility], [place], [place], [phone], Provider Name:Terrance cortez, 08/17/2025 09:00:00 AM, [address] [place] [address], [address] [place] [address], [phone], Provider Name:Terrance cortez, 02/05/2026 07:00:00 AM, [address] [place] [address], [address], [phone], Provider Name:Terrance cortez, 02/12/2026 08:30:00 AM, [address] [place] [address], [address], [phone], Progress Notes * Denny VASQUEZ ADOB: [birth year] (64 yo M)Acc No.[id number]:03/22/2025 Progress Notes Patient: Denny TORREZ Provider: Ekaterina Heard MD :1960 A ge:64 Y S ex:Male Date:03/22/2025 Address:[address] [place], [place] [phone] Subjective: * Chief Complaints: * F /U ERV Kidney stones * HPI: S ymptom(s): patient is a 64 yo male hgere for follow up of recent ER visit/ had 4 kidney stones. * ROS: G eneral/Constitutional: Denies C hills. D enies F atigue. D enies F ever. D enies H eadache. E NT: Denies S ore throat. R espiratory: Denies C ough. D enies S hortness of breath at rest. D enies S hortness of breath with exertion. G astrointestinal: Denies D iarrhea. D enies N ausea. G enitourinary: Denies A bdominal pain/swelling. * Medical History: * Surgical History: * Hospitalization/Major Diagno stic Procedure: * Medications: T akingTadalafil 10 MG Tablet TAKE ONE TABLET BY MOUTH EVERY DAY NEEDED Pantoprazole Sodium 40 MG Tablet Delayed Release TAKE ONE TABLET BY MOUTH EVERY DAY ProAir HFA 108 (90 Base) MCG/ACT Aerosol Solution 2 puffs as needed Inhalation every 4 hrs Losartan Potassium 100 MG Tablet TAKE ONE TABLET BY MOUTH EVERY DAY Atorvastatin Calcium 40 MG Tablet TAKE ONE TABLET BY MOUTH EVERY DAY Medication List reviewed and reconciled with the patientTaking Tadalafil 10 MG Tablet TAKE ONE TABLET BY MOUTH EVERY DAY NEEDED Taking Pantoprazole Sodium 40 MG Tablet Delayed Release TAKE ONE TABLET BY MOUTH EVERY DAY Taking ProAir HFA 108 (90 Base) MCG/ACT Aerosol Solution 2 puffs as needed Inhalation every 4 hrs Taking Losartan Potassium 100 MG Tablet TAKE ONE TABLET BY MOUTH EVERY DAY Taking Atorvastatin Calcium 40 MG Tablet TAKE ONE TABLET BY MOUTH EVERY DAY Medication List reviewed and reconciled with the patient * Allergies: p enicillin: tongue swellingyes[Allergies Verified] Objective: * Vitals: H t: 73, Wt: 230, BMI:30.34, BP:102/64, Wt-k.33. weight is down 5 pounds since 02-08-25. * Examination: G eneral Examination: GENERAL APPEARANCE: a lert, well hydrated, in no distress.? HEAD: n ormocephalic. SKIN: g ood turgor has eczmatous rash on finger. HEART: r egular rate and rhythm, no murmurs, rubs, gallops.? LUNGS: n o wheezes, rales, rhonchi, good air movement, clear to auscultation bilaterally. ABDOMEN: s oft, nontender, nondistended. BACK: n o costovertebral angle tenderness. Assessment: * Assessment: 1. K idney stone - N20.0 (Primary) 2 . H ydroureter - N13.4 ?3. E czema - L30.9 Plan: * Treatment: 2. E czema Notes: to use triamcinolone * Procedure Codes: * * Sign off status: Completed true * Provider: Ekaterina Heard MD Date: 1 Generated for Maria R sahu/Samara/Mitziitting on: 07/26/2024 03:20 PM EST History and Physical Notes * HPI (History of Present Illness) Category Sub-Category Detail Notes Category Not es Symptom(s) patient is a 64 yo male hgere for follow up of recent ER visit/ had 4 kidney stones. Examination Category Sub-Category Detail Notes Category Not es General Examination GENERAL APPEARANCE: alert, w ell hydrated, in no distress HEAD: normocephalic HEART: regular rate and rhy thm, no murmurs, rubs, gallops LUNGS: no wheezes, rales, r honchi, good air movement, clear to auscultation bilaterally ABDOMEN: soft, nontender, non distended SKIN: good turgor has eczm atous rash on finger BACK: no costovertebral an gle tenderness
--- OUTSIDE RECORDS SUMMARY | 2025-05-24 03:30 | XMS_ITS ---
Author Organization [facility] [address] Address [address] [place] [address] Care Team Providers Care Parcel Wrapper Name Role Phone Terrance Heard Primary Care Provider Unavailab ZACK Bautista Unavailable [phone] IMAN PIÑA Unavailable [phone] Allergies Allergen (clinical drug ingredient) Drug/Non Drug Allergy documented on EMR Reaction Allergy Type Onset Date Status Penicillin anaphylaxis Drug Allergy Acti ve REASON FOR VISIT Patient presents in office today for a weight management follow up, SECA has been completed, no questions or concerns have been brought up during this time Medications Medication SIG (Take, Route, Frequency, Duration) Notes Start Date End Date Status Pantoprazole Sodium 40 MG Tablet Delayed Release TAKE ONE TABLET BY MOUTH EVERY DAY Oral; Duration: 30 Days Active Losartan Potassium 100 MG Tablet Oral; Duration: 60 Days Acti ve Atorvastatin Calcium 40 MG Tablet Oral; Duration: 60 Days Acti ve Zepbound 12.5 MG/0.5ML Solution Auto-injector Inject 12.5 mg Subcutaneous weekly; Duration: 30 days 05/24/2025 Active Vital Signs Blood pressure systolic 112 mm Hg 05/24/20 25 Blood pressure diastolic 70 mm Hg 025 Heart Rate 83 /min 05/24/2025 Height 73 in 05/24/2025 Weight 223.7 lbs 05/24/2025 BMI 29.51 kg/m2 05/24/2025 Oximetry 97 % 05/24/2025 Encounters Encounter Location Date Provider Diagnosis [facility] [address] [id number] 05/24/2025 IMAN PIÑA History of obesity Z 86.39 ; BMI 29.0-29.9,adult Z68.29 ; Essential hypertension I10 ; Pure hypercholesterolemia E78.00 and Nutritional counseling Z71.3 Assessments Encounter Date Diagnosis (ICD Code) Assessment Notes Treatment Notes Treatment Clinical Notes Section Notes 05/24/2025 History of obesity (ICD-10 - Z86.39) Denny is a 64-year-old male with a PMH of HTN, HLD, GERD that presents for weight management follow-up. Reviewed [facility] holistic and medical approach to weight loss with emphasis on lifestyle modification. 05/24/2025: Weight: 223.7, BMI: 29.5. (-3lbs) SECA reviewed, reveals primarily fat loss. Discussed importance of prioritization of protein down/nutrient rich foods. He is encouraged to continue hydrating adequately. Discussed importance of regular physical activity with combination of cardio/strength training. Will increase dose of Zepbound to 12.5 mg SC weekly and follow-up in 4 to 6 weeks. 04/12/2025: Weight: 225, BMI: 29.6 03/01/2025: Weight: 233.9, BMI: 30.8 (-1lb) 01/18/2025: Weight: 234, BMI: 30.8 (-8lbs) 12/07/2024: Weight: 242.9, BMI: 32. (-1lb) 11/02/2024: [...] reviewed. Dictation completed with the use of [employer] voice recognition software, prone to medical misidentifications and grammatical errors. All errors are unintentional. Although the practitioner does try to identify and correct errors, some may be present. Please do not hesitate to contact the practitioner for clarification. Total time was 30 minutes spent with >50% on coordination of care and patient education. 05/24/2025 BMI 29.0-29.9,adult (ICD-10 - Z68.29) Denny is a 64-year-old male with a PMH of HTN, HLD, GERD that presents for weight management follow-up. Reviewed [facility] holistic and medical approach to weight loss with emphasis on lifestyle modification. 05/24/2025: Weight: 223.7, BMI: 29.5. (-3lbs) SECA reviewed, reveals primarily fat loss. Discussed importance of prioritization of protein down/nutrient rich foods. He is encouraged to continue hydrating adequately. Discussed importance of regular physical activity with combination of cardio/strength training. Will increase dose of Zepbound to 12.5 mg SC weekly and follow-up in 4 to 6 weeks. 04/12/2025: Weight: 225, BMI: 29.6 03/01/2025: Weight: 233.9, BMI: 30.8 (-1lb) 01/18/2025: Weight: 234, BMI: 30.8 (-8lbs) 12/07/2024: Weight: 242.9, BMI: 32. (-1lb) 11/02/2024: [...] reviewed. Dictation completed with the use of [employer] voice recognition software, prone to medical misidentifications and grammatical errors. All errors are unintentional. Although the practitioner does try to identify and correct errors, some may be present. Please do not hesitate to contact the practitioner for clarification. Total time was 30 minutes spent with >50% on coordination of care and patient education. 05/24/2025 Essential hypertensi on (ICD-10 - I10) Denny is a 64-year-old male with a PMH of HTN, HLD, GERD that presents for weight management follow-up. Reviewed [facility] holistic and medical approach to weight loss with emphasis on lifestyle modification. 05/24/2025: Weight: 223.7, BMI: 29.5. (-3lbs) SECA reviewed, reveals primarily fat loss. Discussed importance of prioritization of protein down/nutrient rich foods. He is encouraged to continue hydrating adequately. Discussed importance of regular physical activity with combination of cardio/strength training. Will increase dose of Zepbound to 12.5 mg SC weekly and follow-up in 4 to 6 weeks. 04/12/2025: Weight: 225, BMI: 29.6 03/01/2025: Weight: 233.9, BMI: 30.8 (-1lb) 01/18/2025: Weight: 234, BMI: 30.8 (-8lbs) 12/07/2024: Weight: 242.9, BMI: 32. (-1lb) 11/02/2024: [...] reviewed. Dictation completed with the use of [employer] voice recognition software, prone to medical misidentifications and grammatical errors. All errors are unintentional. Although the practitioner does try to identify and correct errors, some may be present. Please do not hesitate to contact the practitioner for clarification. Total time was 30 minutes spent with >50% on coordination of care and patient education. 05/24/2025 Pure hypercholesterolemia (ICD-10 - E78.00) Denny is a 64-year-old male with a PMH of HTN, HLD, GERD that presents for weight management follow-up. Reviewed [facility] holistic and medical approach to weight loss with emphasis on lifestyle modification. 05/24/2025: Weight: 223.7, BMI: 29.5. (-3lbs) SECA reviewed, reveals primarily fat loss. Discussed importance of prioritization of protein down/nutrient rich foods. He is encouraged to continue hydrating adequately. Discussed importance of regular physical activity with combination of cardio/strength training. Will increase dose of Zepbound to 12.5 mg SC weekly and follow-up in 4 to 6 weeks. 04/12/2025: Weight: 225, BMI: 29.6 03/01/2025: Weight: 233.9, BMI: 30.8 (-1lb) 01/18/2025: Weight: 234, BMI: 30.8 (-8lbs) 12/07/2024: Weight: 242.9, BMI: 32. (-1lb) 11/02/2024: [...] reviewed. Dictation completed with the use of [employer] voice recognition software, prone to medical misidentifications and grammatical errors. All errors are unintentional. Although the practitioner does try to identify and correct errors, some may be present. Please do not hesitate to contact the practitioner for clarification. Total time was 30 minutes spent with >50% on coordination of care and patient education. 05/24/2025 Nutritional counseli adelina (ICD-10 - Z71.3) Denny is a 64-year-old male with a PMH of HTN, HLD, GERD that presents for weight management follow-up. Reviewed [facility] holistic and medical approach to weight loss with emphasis on lifestyle modification. 05/24/2025: Weight: 223.7, BMI: 29.5. (-3lbs) SECA reviewed, reveals primarily fat loss. Discussed importance of prioritization of protein down/nutrient rich foods. He is encouraged to continue hydrating adequately. Discussed importance of regular physical activity with combination of cardio/strength training. Will increase dose of Zepbound to 12.5 mg SC weekly and follow-up in 4 to 6 weeks. 04/12/2025: Weight: 225, BMI: 29.6 03/01/2025: Weight: 233.9, BMI: 30.8 (-1lb) 01/18/2025: Weight: 234, BMI: 30.8 (-8lbs) 12/07/2024: Weight: 242.9, BMI: 32. (-1lb) 11/02/2024: [...] reviewed. Dictation completed with the use of [employer] voice recognition software, prone to medical misidentifications and grammatical errors. All errors are unintentional. Although the practitioner does try to identify and correct errors, some may be present. Please do not hesitate to contact the practitioner for clarification. Total time was 30 minutes spent with >50% on coordination of care and patient education. Plan Of Treatment Medication Medication Name Sig Start Date Stop Date Notes Zepbound 12.5 MG/0.5ML Solution Auto-injector Inject 12.5 mg Subcutaneous weekly; Duration: 30 days 05/24/2025 Next Appt Details Provider Name:IMAN GREG Maria, 07/05/2025 08:45:00 AM, [address] [facility], [facility] [address], [place], [phone], History and Physical Notes * HPI (History of Present Illness) Category Sub-Category Detail Notes Category Not es Constitutional Denny is a 64- year-old male with a PMH of HTN, HLD, GERD that presents for weight management follow-up. Patient currently taking Zepbound 10 mg SC weekly with compliance. Reports moderate appetite suppression. Denies nausea, vomiting, constipation or abdominal pain. Eating 3 meals/day. Starts the morning with tea and eggs with cottage cheese for breakfast. Drinking 1-2 protein shakes/day. Lunch varies - currently having tuna, bakedchicken, etc. Dinner is prepared at home - consists of a protein, a veggie/salad, and the occasional carb/starch. Water intake is good, drinking 60+ ounces/day. Physical activity is primarily walking and some free weights. Physical Examination Category Sub-Category Detail Notes Section Note s General: Age appropriate, well-appearing 64-year-old male in no acute distress, speaking in full sentences without respiratory compromise. Well groomed, well developed. Alert, interactive. Skin: Warm, dry and intact. No lesions/rashes/erythema. HEENT: Normocephalic/atraumatic. CV: RRR. Lungs: Clear to auscultation bilaterally. Neuro: CN II-XII grossly intact. Steady gait with non-assisted ambulation observed. Psych: Stable mood and affect. Progress Notes * Denny VASQUEZDOB:1960 (64 yo M)Acc No.[id number]:05/24/2025 Patient: Denny Rhodes Provider: Roger PIÑA PA-C :1960 A ge:64 Y S ex:Male Date:05/24/2025 Address:[address] [place] [id number] Pcp:Terrance Heard Subjective: * Chief Complaints: * 1 . Patient presents in office today for a weight management follow up, SECA has been completed, no questions or concerns have been brought up during this time. * HPI: C onstitutional: Denny is a 64-year-old male with a PMH of HTN, HLD, GERD that presents for weight management follow-up. Patient currently taking Zepbound 10 mg SC weekly with compliance. Reports moderate appetite suppression. Denies nausea, vomiting, constipation or abdominal pain. Eating 3 meals/day. Starts the morning with tea and eggs with cottage cheese for breakfast. Drinking 1-2 protein shakes/day. Lunch varies - currently having tuna, bakedchicken, etc. Dinner is prepared at home - consists of a protein, a veggie/salad, and the occasional carb/starch. Water intake is good, drinking 60+ ounces/day. Physical activity is primarily walking and some free weights. * ROS: A ll Other Systems: Review of Systems (ROS) A ll others negative except those mentioned in HPI. * Medical History: * Surgical History: * Hospitalization/Major Diagno stic Procedure: * Family History: F ather: COPD, dementia, HTN, HLD. M other: cervical cancer, HTN, HLD. 2 brother(s) , 1 sister(s) . 1 son(s) , 1 daughter(s) . . F amily History Verified.. 21-year-old son and 13-year-old daughter. * Social History: Social History Verified. No Social History documented. * Medications: T aking Zepbound 10 MG/0.5ML Solution Auto-injector Inject 10 mg Subcutaneous weekly , Taking Pantoprazole Sodium 40 MG Tablet Delayed Release TAKE ONE TABLET BY MOUTH EVERY DAY Oral , Taking Losartan Potassium 100 MG Tablet Oral , Taking Atorvastatin Calcium 40 MG Tablet Oral , Medication List reviewed and reconciled with the patient * Allergies: P enicillin: anaphylaxis. Allergies Verified. Objective: * Vitals: H R:83/min, BP:112/70mm Hg, Wt:223.7lbs, BMI:29.51Index, Ht: 73 in, Oxygen sat %:97%. * Physical Examination: G eneral: Age appropriate, well-appearing 64-year-old male in no acute distress, speaking in full sentences without respiratory compromise. Well groomed, well developed. Alert, interactive. Skin: Warm, dry and intact. No lesions/rashes/erythema. HEENT: Normocephalic/atraumatic. CV: RRR. Lungs: Clear to auscultation bilaterally. Neuro: CN II-XII grossly intact. Steady gait with non-assisted ambulation observed. Psych: Stable mood and affect. Assessment: * Assessment: 1. H istory of obesity - Z86.39 (Primary) 2 . B ID 29.0-29.9,adult - Z68.29? 3. E ssential hypertension - I10 4 . P ure hypercholesterolemia - E78.00 5 . N utritional counseling - Z71.3 Denny is a 64-year-old male w ith a PMH of HTN, HLD, GERD that presents for weight management follow-up. Reviewed [facility] holistic and medical approach to weight loss with emphasis on lifestyle modification. 05/24/2025: Weight: 223.7, BMI: 29.5. (-3lbs) SECA reviewed, reveals primarily fat loss. Discussed importance of prioritization of protein down/nutrient rich foods. He is encouraged to continue hydrating adequately. Discussed importance of regular physical activity with combination of cardio/strength training. Will increase dose of Zepbound to 12.5 mg SC weekly and follow-up in 4 to 6 weeks. 04/12/2025: Weight: 225, BMI: 29.6 03/01/2025: Weight: 233.9, BMI: 30.8 (-1lb) 01/18/2025: Weight: 234, BMI: 30.8 (-8lbs) 12/07/2024: Weight: 242.9, BMI: 32. (-1lb) 11/02/2024: [...] reviewed. Dictation completed with the use of [employer] voice recognition software, prone to medical misidentifications and grammatical errors. All errors are unintentional. Although the practitioner does try to identify and correct errors, some may be present. Please do not hesitate to contact the practitioner for clarification. Total time was 30 minutes spent with >50% on coordination of care and patient education. Plan: * Treatment: * Procedure Codes: 3 078F DIAST BP < 80 MM HG, 3074F SYST BP LT 130 MM HG, G0447 FCE-FCE BEHAVRL CNSL OBESITY 15 MIN, Modifiers: 59 Billing Information: * Visit Code: 22271 Office Visit, Est Pt., Level 4. Modifiers: SA * Procedure Codes: 3078F DIAST BP < 80 MM HG. 3074F SYST BP LT 130 MM HG. G0447 FCE-FCE BEHAVRL CNSL OBESITY 15 MIN. Modifiers: 59 * Sign off status: Completed true * Provider: Roger PIÑA PA-C Date: 07/25/2024 Generated for Maria R sahu/Samara/Joni on: 07/26/2024 03:20 PM EST
--- NOTE | ~2025-05-25 | US_ITS ---
EXAMINATION: US RETROPERITONEAL COMPLETE (RENAL) CLINICAL INFORMATION: Renal stone.. COMPARISON: CT abdomen and pelvis 06/27/2018. TECHNIQUE: Real-time imaging of the kidneys and bladder. FINDINGS: RIGHT KIDNEY: 11.8 x 6.7 x 6.3 cm (SAG x AP x TRV). The kidney is normal in size, contour, and echogenicity. Renal cortical thickness is normal. No calculi or focal parenchymal lesions. No hydronephrosis. LEFT KIDNEY: 12.5 x 6.6 x 6.1 cm (SAG x AP x TRV). The kidney is normal in size, contour, and echogenicity. Renal cortical thickness is normal. There is a lower pole calculus measuring 3 x 2 x 3 mm. There are numerous simple cysts present, largest in the midpole measuring 2.1 x 1.2 x 3.2 cm. There are parapelvic cysts as well. BLADDER: Well distended and normal. Bilateral ureteral jets are demonstrated. Prevoid bladder volume is 170 mL. Postvoid bladder volume is 21 mL. Estimated prostate volume is 44 mL, moderately enlarged. There are dystrophic central calcifications. US/US retroperitoneal comp IMPRESSION: 1. There is a nonobstructing 3 mm calculus in the left kidney lower pole. 2. There are left renal parapelvic and cortical simple cysts. 3. Normal urinary bladder with postvoid residual of 21 mL. 4. Moderately enlarged prostate with estimated volume of 44 mL. Electronically signed by: Christoph Guerra MD 05/25/2025 02:35 PM [facility]
--- OUTSIDE RECORDS SUMMARY | 2025-05-25 15:19 | XMS_ITS | Patient Health Record ---
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 Role Phone Terrance Heard Primary Care Provider Unavailab ZACK Bautista Unavailable [phone] IMAN PIÑA Unavailable [phone] Allergies Allergen (clinical drug ingredient) Drug/Non Drug Allergy documented on EMR Reaction Allergy Type Onset Date Status Penicillin anaphylaxis Drug Allergy Acti ve Reason For Referral Diagnosis 1 Abnormal weight gain (R63.5) Referred Organization [facility] [address] Referred Provider ZACK REY Referred Address [address] [facility] [address] ,[place], [place],[address], Referred Provider Specialty Weight Manag ement Referral [...] Subcutaneous weekly; Duration: 30 days 05/24/2025 Active Problems Problem Type SNOMED Code ICD Code Onset Dates Problem Status W/U Status Risk Notes Problem Essential hypertension (82300647) Essential hypertension (I10) Active confirmed Problem Pure hypercholesterolemia (965634976) Pure hypercholesterolemia (E78.00) Active confirmed Problem Nephrolithiasis (98936942) Nephrolithiasis (N20.0) Active confirmed Problem Gastroesophageal reflux disease (968973119) GERD (gastroesophageal reflux disease) (K21.9) Active confirmed Problem Hyperlipidemia (88198173) Hyperlipidemia (E78.5) Active confirmed Problem History of obesity (273207799) History of obesity (Z86.39) Active confirmed Vital Signs Heart Rate 83 /min 05/24/2025 Oximetry 97 % 05/24/2025 Blood pressure diastolic 70 mm Hg 05/24/2025 Height 73 in 05/24/2025 Blood pressure systolic 112 mm Hg 05/24/2025 Weight 223.7 lbs 05/24/2025 BMI 29.51 kg/m2 05/24/2025 Encounters Encounter Location Date Provider Diagnosis [facility] [address] [address] 08/03/2024 IMAN AYANA Obesity (BMI 30-39.9 ) E66.9 ; BMI 38.0-38.9,adult Z68.38 ; Essential hypertension I10 ; Pure hypercholesterolemia E78.00 and Nutritional counseling Z71.3 [facility] [address] [address] 09/04/2024 IMAN AYANA Obesity (BMI 30-39.9 ) E66.9 ; BMI 36.0-36.9,adult Z68.36 ; Essential hypertension I10 ; Pure hypercholesterolemia E78.00 and Nutritional counseling Z71.3 [facility] [address] [address] 10/03/2024 IMAN AYANA Obesity (BMI 30-39.9 ) E66.9 ; BMI 35.0-35.9,adult Z68.35 ; Essential hypertension I10 ; Pure hypercholesterolemia E78.00 and Nutritional counseling Z71.3 [facility] [address] [address] 11/02/2024 IMAN AYANA Obesity (BMI 30-39.9 ) E66.9 ; BMI 33.0-33.9,adult Z68.33 ; Essential hypertension I10 ; Pure hypercholesterolemia E78.00 and Nutritional counseling Z71.3 [facility] [address] [address] 12/07/2024 IMAN AYANA Obesity (BMI 30-39.9 ) E66.9 ; BMI 32.0-32.9,adult Z68.32 ; Essential hypertension I10 ; Pure hypercholesterolemia E78.00 and Nutritional counseling Z71.3 [facility] [address] [address] 01/19/2025 IMAN NUNESHAM Obesity (BMI 30-39.9 ) E66.9 ; BMI 30.0-30.9,adult Z68.30 ; Essential hypertension I10 ; Pure hypercholesterolemia E78.00 and Nutritional counseling Z71.3 [facility] [address] [facility] [address] [place] [address] 03/01/2025 IMAN NUNESHAM Obesity (BMI 30-39.9 ) E66.9 ; BMI 30.0-30.9,adult Z68.30 ; Essential hypertension I10 ; Pure hypercholesterolemia E78.00 and Nutritional counseling Z71.3 [facility] [address] [facility] [address] [place] [address] 04/12/2025 IMAN LINDSAY History of obesity Z 86.39 ; BMI 29.0-29.9,adult Z68.29 ; Essential hypertension I10 ; Pure hypercholesterolemia E78.00 and Nutritional counseling Z71.3 [facility] [address] [facility] [address] [place] [address] 05/24/2025 IMAN LINDSAY History of obesity Z 86.39 ; BMI 29.0-29.9,adult Z68.29 ; Essential hypertension I10 ; Pure hypercholesterolemia E78.00 and Nutritional counseling Z71.3 [facility] [address] [facility] [address] [place] [address] 08/03/2024 IMAN NUNESHAM [facility] [address] [place] [address] 10/03/2024 ZACK REY [facility] [address] [place] [address] 02/08/2025 IMAN LINDSAY Obesity (BMI 30-39.9 ) E66.9 Assessments Encounter Date Diagnosis (ICD Code) Assessment [...] reviewed. Dictation completed with the use of [employer] voice recognition software, prone to medical misidentifications [...] reviewed. Dictation completed with the use of [employer] voice recognition software, prone to medical misidentifications [...] reviewed. Dictation completed with the use of [employer] voice recognition software, prone to medical misidentifications [...] reviewed. Dictation completed with the use of [employer] voice recognition software, prone to medical misidentifications [...] reviewed. Dictation completed with the use of [employer] voice recognition software, prone to medical misidentifications [...] reviewed. Dictation completed with the use of [employer] voice recognition software, prone to medical misidentifications [...] reviewed. Dictation completed with the use of [employer] voice recognition software, prone to medical misidentifications [...] reviewed. Dictation completed with the use of [employer] voice recognition software, prone to medical misidentifications [...] reviewed. Dictation completed with the use of [employer] voice recognition software, prone to medical misidentifications [...] reviewed. Dictation completed with the use of [employer] voice recognition software, prone to medical misidentifications and grammatical errors. All errors are unintentional. Although the practitioner does try to identify and correct errors, some may be present. Please do not hesitate to contact the practitioner for clarification. Total time was 30 minutes spent with >50% on coordination of care and patient education. 02/08/2025 Obesity (BMI 30-39.9 ) (ICD-10 - E66.9) 03/01/2025 Obesity (BMI 30-39.9 ) (ICD-10 - E66.9) Denny is a 64-year-old male with a PMH of HTN, HLD, GERD that presents for weight management follow-up. Reviewed [facility] holistic and medical approach to weight loss with emphasis on lifestyle modification. 03/01/2025: Weight: 233.9, BMI: 30.8 (-1lb) SECA reviewed, reveals 1 pound of fat loss. Patient encouraged to continue making health-conscious diet choices and prioritizing protein intake. Discussed importance of maintenance of active lifestyle. Plan to increase dose of Zepbound to 10 mg SC weekly and follow-up in 4-6 weeks. 01/18/2025: Weight: 234, BMI: 30.8 (-8lbs) 12/07/2024: [...] reviewed. Dictation completed with the use of [employer] voice recognition software, prone to medical misidentifications [...] reviewed. Dictation completed with the use of [employer] voice recognition software, prone to medical misidentifications and grammatical errors. All errors are unintentional. Although the practitioner does try to identify and correct errors, some may be present. Please do not hesitate to contact the practitioner for clarification. Total time was 30 minutes spent with >50% on coordination of care and patient education. 05/24/2025 History of obesity (ICD-10 - Z86.39) [...] reviewed. Dictation completed with the use of [employer] voice recognition software, prone to medical misidentifications and grammatical errors. All errors are unintentional. Although the practitioner does try to identify and correct errors, some may be present. Please do not hesitate to contact the practitioner for clarification. Total time was 30 minutes spent with >50% on coordination of care and patient education. 04/12/2025 BMI 29.0-29.9,adult (ICD-10 - Z68.29) Denny is a 64-year-old male with a PMH of HTN, HLD, GERD that presents for weight management follow-up. Reviewed [facility] holistic and medical approach to weight loss with emphasis on lifestyle modification. 04/12/2025: Weight: 225, BMI: 29.6 SECA reviewed, reveals 7 pounds of fat loss and 0.5 pounds of muscle mass loss. Patient congratulated on continued progress. He is encouraged to continue making health-conscious diet choices and prioritizing protein intake. Discussed importance of maintenance of active lifestyle as tolerated. Plan to continue Zepbound 10 mg SC weekly and follow-up in 6 weeks. 03/01/2025: Weight: 233.9, BMI: 30.8 (-1lb) 01/18/2025: [...] reviewed. Dictation completed with the use of [employer] voice recognition software, prone to medical misidentifications and grammatical errors. All errors are unintentional. Although the practitioner does try to identify and correct errors, some may be present. Please do not hesitate to contact the practitioner for clarification. Total time was 30 minutes spent with >50% on coordination of care and patient education. 04/12/2025 History of obesity (ICD-10 - Z86.39) Denny is a 64-year-old male with a PMH of HTN, HLD, GERD that presents for weight management follow-up. Reviewed [facility] holistic and medical approach to weight loss with emphasis on lifestyle modification. 04/12/2025: Weight: 225, BMI: 29.6 SECA reviewed, reveals 7 pounds of fat loss and 0.5 pounds of muscle mass loss. Patient congratulated on continued progress. He is encouraged to continue making health-conscious diet choices and prioritizing protein intake. Discussed importance of maintenance of active lifestyle as tolerated. Plan to continue Zepbound 10 mg SC weekly and follow-up in 6 weeks. 03/01/2025: Weight: 233.9, BMI: 30.8 (-1lb) 01/18/2025: [...] reviewed. Dictation completed with the use of [employer] voice recognition software, prone to medical misidentifications [...] reviewed. Dictation completed with the use of [employer] voice recognition software, prone to medical misidentifications [...] reviewed. Dictation completed with the use of [employer] voice recognition software, prone to medical misidentifications and grammatical errors. All errors are unintentional. Although the practitioner does try to identify and correct errors, some may be present. Please do not hesitate to contact the practitioner for clarification. Total time was 30 minutes spent with >50% on coordination of care and patient education. 10/03/2024 Essential hypertension (ICD-10 - I10) Denny is a 63-year-old [...] reviewed. Dictation completed with the use of [employer] voice recognition software, prone to medical misidentifications and grammatical errors. All errors are unintentional. Although the practitioner does try to identify and correct errors, some may be present. Please do not hesitate to contact the practitioner for clarification. Total time was 30 minutes spent with >50% on coordination of care and patient education. 04/12/2025 Essential hypertension (ICD-10 - I10) Denny is a 64-year-old male with a PMH of HTN, HLD, GERD that presents for weight management follow-up. Reviewed [facility] holistic and medical approach to weight loss with emphasis on lifestyle modification. 04/12/2025: Weight: 225, BMI: 29.6 SECA reviewed, reveals 7 pounds of fat loss and 0.5 pounds of muscle mass loss. Patient congratulated on continued progress. He is encouraged to continue making health-conscious diet choices and prioritizing protein intake. Discussed importance of maintenance of active lifestyle as tolerated. Plan to continue Zepbound 10 mg SC weekly and follow-up in 6 weeks. 03/01/2025: Weight: 233.9, BMI: 30.8 (-1lb) 01/18/2025: [...] reviewed. Dictation completed with the use of [employer] voice recognition software, prone to medical misidentifications and grammatical errors. All errors are unintentional. Although the practitioner does try to identify and correct errors, some may be present. Please do not hesitate to contact the practitioner for clarification. Total time was 30 minutes spent with >50% on coordination of care and patient education. 05/24/2025 Essential hypertension (ICD-10 - I10) Denny is a 64-year-old [...] reviewed. Dictation completed with the use of [employer] voice recognition software, prone to medical misidentifications and grammatical errors. All errors are unintentional. Although the practitioner does try to identify and correct errors, some may be present. Please do not hesitate to contact the practitioner for clarification. Total time was 30 minutes spent with >50% on coordination of care and patient education. 03/01/2025 BMI 30.0-30.9,adult (ICD-10 - Z68.30) Denny is a 64-year-old male with a PMH of HTN, HLD, GERD that presents for weight management follow-up. Reviewed [facility] holistic and medical approach to weight loss with emphasis on lifestyle modification. 03/01/2025: Weight: 233.9, BMI: 30.8 (-1lb) SECA reviewed, reveals 1 pound of fat loss. Patient encouraged to continue making health-conscious diet choices and prioritizing protein intake. Discussed importance of maintenance of active lifestyle. Plan to increase dose of Zepbound to 10 mg SC weekly and follow-up in 4-6 weeks. 01/18/2025: Weight: 234, BMI: 30.8 (-8lbs) 12/07/2024: [...] reviewed. Dictation completed with the use of [employer] voice recognition software, prone to medical misidentifications and grammatical errors. All errors are unintentional. Although the practitioner does try to identify and correct errors, some may be present. Please do not hesitate to contact the practitioner for clarification. Total time was 30 minutes spent with >50% on coordination of care and patient education. 01/19/2025 Essential hypertension (ICD-10 - I10) Denny is a 64-year-old [...] reviewed. Dictation completed with the use of [employer] voice recognition software, prone to medical misidentifications and grammatical errors. All errors are unintentional. Although the practitioner does try to identify and correct errors, some may be present. Please do not hesitate to contact the practitioner for clarification. Total time was 30 minutes spent with >50% on coordination of care and patient education. 12/07/2024 Essential hypertension (ICD-10 - I10) Denny is a 64-year-old [...] reviewed. Dictation completed with the use of [employer] voice recognition software, prone to medical misidentifications and grammatical errors. All errors are unintentional. Although the practitioner does try to identify and correct errors, some may be present. Please do not hesitate to contact the practitioner for clarification. Total time was 30 minutes spent with >50% on coordination of care and patient education. 11/02/2024 Essential hypertension (ICD-10 - I10) Denny is a 63-year-old [...] reviewed. Dictation completed with the use of [employer] voice recognition software, prone to medical misidentifications and grammatical errors. All errors are unintentional. Although the practitioner does try to identify and correct errors, some may be present. Please do not hesitate to contact the practitioner for clarification. Total time was 30 minutes spent with >50% on coordination of care and patient education. 09/04/2024 Essential hypertension (ICD-10 - I10) Denny is a 63-year-old [...] reviewed. Dictation completed with the use of [employer] voice recognition software, prone to medical misidentifications and grammatical errors. All errors are unintentional. Although the practitioner does try to identify and correct errors, some may be present. Please do not hesitate to contact the practitioner for clarification. Total time was 30 minutes spent with >50% on coordination of care and patient education. 08/03/2024 Essential hypertension (ICD-10 - I10) Denny is a 63-year-old [...] reviewed. Dictation completed with the use of [employer] voice recognition software, prone to medical misidentifications [...] reviewed. Dictation completed with the use of [employer] voice recognition software, prone to medical misidentifications [...] reviewed. Dictation completed with the use of [employer] voice recognition software, prone to medical misidentifications [...] reviewed. Dictation completed with the use of [employer] voice recognition software, prone to medical misidentifications [...] reviewed. Dictation completed with the use of [employer] voice recognition software, prone to medical misidentifications and grammatical errors. All errors are unintentional. Although the practitioner does try to identify and correct errors, some may be present. Please do not hesitate to contact the practitioner for clarification. Total time was 30 minutes spent with >50% on coordination of care and patient education. 03/01/2025 Essential hypertension (ICD-10 - I10) Denny is a 64-year-old male with a PMH of HTN, HLD, GERD that presents for weight management follow-up. Reviewed [facility] holistic and medical approach to weight loss with emphasis on lifestyle modification. 03/01/2025: Weight: 233.9, BMI: 30.8 (-1lb) SECA reviewed, reveals 1 pound of fat loss. Patient encouraged to continue making health-conscious diet choices and prioritizing protein intake. Discussed importance of maintenance of active lifestyle. Plan to increase dose of Zepbound to 10 mg SC weekly and follow-up in 4-6 weeks. 01/18/2025: Weight: 234, BMI: 30.8 (-8lbs) 12/07/2024: [...] reviewed. Dictation completed with the use of [employer] voice recognition software, prone to medical misidentifications [...] reviewed. Dictation completed with the use of [employer] voice recognition software, prone to medical misidentifications and grammatical errors. All errors are unintentional. Although the practitioner does try to identify and correct errors, some may be present. Please do not hesitate to contact the practitioner for clarification. Total time was 30 minutes spent with >50% on coordination of care and patient education. 04/12/2025 Pure hypercholesterolemia (ICD-10 - E78.00) Denny is a 64-year-old male with a PMH of HTN, HLD, GERD that presents for weight management follow-up. Reviewed [facility] holistic and medical approach to weight loss with emphasis on lifestyle modification. 04/12/2025: Weight: 225, BMI: 29.6 SECA reviewed, reveals 7 pounds of fat loss and 0.5 pounds of muscle mass loss. Patient congratulated on continued progress. He is encouraged to continue making health-conscious diet choices and prioritizing protein intake. Discussed importance of maintenance of active lifestyle as tolerated. Plan to continue Zepbound 10 mg SC weekly and follow-up in 6 weeks. 03/01/2025: Weight: 233.9, BMI: 30.8 (-1lb) 01/18/2025: [...] reviewed. Dictation completed with the use of [employer] voice recognition software, prone to medical misidentifications [...] reviewed. Dictation completed with the use of [employer] voice recognition software, prone to medical misidentifications and grammatical errors. All errors are unintentional. Although the practitioner does try to identify and correct errors, some may be present. Please do not hesitate to contact the practitioner for clarification. Total time was 30 minutes spent with >50% on coordination of care and patient education. 10/03/2024 Nutritional counseling (ICD-10 - Z71.3) Denny is a 63-year-old [...] reviewed. Dictation completed with the use of [employer] voice recognition software, prone to medical misidentifications and grammatical errors. All errors are unintentional. Although the practitioner does try to identify and correct errors, some may be present. Please do not hesitate to contact the practitioner for clarification. Total time was 30 minutes spent with >50% on coordination of care and patient education. 04/12/2025 Nutritional counseling (ICD-10 - Z71.3) Denny is a 64-year-old male with a PMH of HTN, HLD, GERD that presents for weight management follow-up. Reviewed [facility] holistic and medical approach to weight loss with emphasis on lifestyle modification. 04/12/2025: Weight: 225, BMI: 29.6 SECA reviewed, reveals 7 pounds of fat loss and 0.5 pounds of muscle mass loss. Patient congratulated on continued progress. He is encouraged to continue making health-conscious diet choices and prioritizing protein intake. Discussed importance of maintenance of active lifestyle as tolerated. Plan to continue Zepbound 10 mg SC weekly and follow-up in 6 weeks. 03/01/2025: Weight: 233.9, BMI: 30.8 (-1lb) 01/18/2025: [...] reviewed. Dictation completed with the use of [employer] voice recognition software, prone to medical misidentifications and grammatical errors. All errors are unintentional. Although the practitioner does try to identify and correct errors, some may be present. Please do not hesitate to contact the practitioner for clarification. Total time was 30 minutes spent with >50% on coordination of care and patient education. 05/24/2025 Nutritional counseling (ICD-10 - Z71.3) Denny is a 64-year-old [...] reviewed. Dictation completed with the use of [employer] voice recognition software, prone to medical misidentifications and grammatical errors. All errors are unintentional. Although the practitioner does try to identify and correct errors, some may be present. Please do not hesitate to contact the practitioner for clarification. Total time was 30 minutes spent with >50% on coordination of care and patient education. 03/01/2025 Pure hypercholesterolemia (ICD-10 - E78.00) Denny is a 64-year-old male with a PMH of HTN, HLD, GERD that presents for weight management follow-up. Reviewed [facility] holistic and medical approach to weight loss with emphasis on lifestyle modification. 03/01/2025: Weight: 233.9, BMI: 30.8 (-1lb) SECA reviewed, reveals 1 pound of fat loss. Patient encouraged to continue making health-conscious diet choices and prioritizing protein intake. Discussed importance of maintenance of active lifestyle. Plan to increase dose of Zepbound to 10 mg SC weekly and follow-up in 4-6 weeks. 01/18/2025: Weight: 234, BMI: 30.8 (-8lbs) 12/07/2024: [...] reviewed. Dictation completed with the use of [employer] voice recognition software, prone to medical misidentifications and grammatical errors. All errors are unintentional. Although the practitioner does try to identify and correct errors, some may be present. Please do not hesitate to contact the practitioner for clarification. Total time was 30 minutes spent with >50% on coordination of care and patient education. 01/19/2025 Nutritional counseling (ICD-10 - Z71.3) Denny is a 64-year-old [...] reviewed. Dictation completed with the use of [employer] voice recognition software, prone to medical misidentifications and grammatical errors. All errors are unintentional. Although the practitioner does try to identify and correct errors, some may be present. Please do not hesitate to contact the practitioner for clarification. Total time was 30 minutes spent with >50% on coordination of care and patient education. 12/07/2024 Nutritional counseling (ICD-10 - Z71.3) Denny is a 64-year-old [...] reviewed. Dictation completed with the use of [employer] voice recognition software, prone to medical misidentifications and grammatical errors. All errors are unintentional. Although the practitioner does try to identify and correct errors, some may be present. Please do not hesitate to contact the practitioner for clarification. Total time was 30 minutes spent with >50% on coordination of care and patient education. 11/02/2024 Nutritional counseling (ICD-10 - Z71.3) Denny is a 63-year-old [...] reviewed. Dictation completed with the use of [employer] voice recognition software, prone to medical misidentifications and grammatical errors. All errors are unintentional. Although the practitioner does try to identify and correct errors, some may be present. Please do not hesitate to contact the practitioner for clarification. Total time was 30 minutes spent with >50% on coordination of care and patient education. 09/04/2024 Nutritional counseling (ICD-10 - Z71.3) Denny is a 63-year-old [...] reviewed. Dictation completed with the use of [employer] voice recognition software, prone to medical misidentifications and grammatical errors. All errors are unintentional. Although the practitioner does try to identify and correct errors, some may be present. Please do not hesitate to contact the practitioner for clarification. Total time was 30 minutes spent with >50% on coordination of care and patient education. 08/03/2024 Nutritional counseling (ICD-10 - Z71.3) Denny is a 63-year-old [...] reviewed. Dictation completed with the use of [employer] voice recognition software, prone to medical misidentifications and grammatical errors. All errors are unintentional. Although the practitioner does try to identify and correct errors, some may be present. Please do not hesitate to contact the practitioner for clarification. Total time was 60 minutes spent with >50% on coordination of care and patient education. 03/01/2025 Nutritional counseling (ICD-10 - Z71.3) Denny is a 64-year-old male with a PMH of HTN, HLD, GERD that presents for weight management follow-up. Reviewed [facility] holistic and medical approach to weight loss with emphasis on lifestyle modification. 03/01/2025: Weight: 233.9, BMI: 30.8 (-1lb) SECA reviewed, reveals 1 pound of fat loss. Patient encouraged to continue making health-conscious diet choices and prioritizing protein intake. Discussed importance of maintenance of active lifestyle. Plan to increase dose of Zepbound to 10 mg SC weekly and follow-up in 4-6 weeks. 01/18/2025: Weight: 234, BMI: 30.8 (-8lbs) 12/07/2024: [...] on coordination of care and patient education. 02/08/2025 Other Electronic Prior Authorization was requested for Zepbound 7.5 MG/0.5ML Solution Auto-injector. Provider can order medication once approval received. Plan Of Treatment Next Appt Details Provider Name:IMAN Maria, 07/05/2025 08:45:00 AM, [address] [facility] [address], [place], [address], Insurance Providers Payer Name Payer Address Payer Phone Subscriber Number Group Number Insured Name Patient Relationship to Insured Coverage Start Date Coverage End Date [facility] [address] [place] [address] [id number] Denny Zavala Self - patient is the insured 4 Medical (General) History Medical History History ICD Code Essential hypertension I10 Hyperlipidemia E78.5 GERD (gastroesophageal reflux disease) K 21.9 Surgical History Surgery Date(Month/Year) cholecystectomy 2023 Bilateral inguinal hernia repair Colectomy Left ACL repair Appendectomy
--- OUTSIDE RECORDS SUMMARY | 2025-05-25 15:19 | XMS_ITS | Patient Health Record ---
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 Complete Blood Count Auto Di ff Reviewed date:02/01/2025 05:12:03 PM Interpretation: Performing Lab:[facility], [address] [place] [phone] Notes/Report: White Blood Count 6.6 4.8-10.8 X10*3/uL [...] NRBC Abs Auto 0.000 0.0-0.012 X10*3/uL Comprehensive [place]. Panel Fa st Reviewed date:02/02/2025 06:45:07 PM Interpretation: Performing Lab:[facility], [address] [place] [phone] Notes/Report: Sodium 139 135-145 mmol/L Potassium 4.3 [...] Panel Reviewed date:02/01/2025 05:09:44 PM Interpretation: Performing Lab:[facility], [address] [place] [phone] Notes/Report: Triglycerides 49 <150 mg/dL Desirable Triglyceride: [...] (Free>4and<10) Reviewed date:02/01/2025 05:09:32 PM Interpretation: Performing Lab:[address] [phone] Notes/Report: PSA,Total (Free>4and<10) 1.06 0.00-4.00 ng/mL A [...] t Reviewed date:02/02/2025 06:50:21 PM Interpretation: Performing Lab:[facility], [address] [place] [phone] Notes/Report: Urine, Clean Catch Color Urine Yellow Appearance Urine Clear PH 6.0 5.0-9.0 Glucose Urine UA Negative Negative mg/dL Urine Blood Negative Negative Specific [place] - Urine 1.025 1.005-1.025 Urine Protein Negative Neg-Trace mg/dL Urine Ketones Negative Negative mg/dL Nitrite Urine Negative Negative Leukocyte Esterase Urine Negative Negative RBC Urine 0-2 0-2 /HPF WBC Urine 0-5 0-5 /HPF Squamous Epithelial Cell Urine 0-2 0-2 /HPF Bacteria Urine None Seen None Seen Hyaline Casts Urine 0-2 0-2 /LPF Occult Blood, Stool, Guaiac Reviewed date:02/08/2025 12:23:07 PM Interpretation:Negative Performing Lab: Notes/Report: Negative Occult Blood, Stool, Guaiac Neg Hold Gold Reviewed date:07/27/2024 12:40:28 PM Interpretation: Performing Lab:[facility], [address] [place] [phone] Notes/Report: Hold Gold See Note Specimen held untested for 24 hours; Call to request Chemistry testing. US retroperitoneal comp Reviewed date:05/25/2025 02:43:24 PM Interpretation: Performing Lab: Notes/Report: [address] [address] Ultrasound Report Signed Patient: Denny Zavala MR#: [id number] : 1960 Acct:[id number] Age/Sex: 64 / M ADM Date: 05/25/25 Loc: HO.US Attending Dr: Terrance Heard MD Ordering Physician: Terrance Heard MD Date of Service: 05/25/25 Procedure(s): US retroperitoneal comp Accession Number(s): [id number] cc: Terrance Heard MD Reason for Exam: kidney stone EXAMINATION: US RETROPERITONEAL COMPLETE (RENAL) CLINICAL INFORMATION: Renal stone.. COMPARISON: CT abdomen and pelvis 06/27/2018. TECHNIQUE: Real-time imaging of the kidneys and bladder. FINDINGS: RIGHT KIDNEY: 11.8 x 6.7 x 6.3 cm (SAG x AP x TRV). The kidney is normal in size, contour, and echogenicity. Renal cortical thickness is normal. No calculi or focal parenchymal lesions. No hydronephrosis. LEFT KIDNEY: 12.5 x 6.6 x 6.1 cm (SAG x AP x TRV). The kidney is normal in size, contour, and echogenicity. Renal cortical thickness is normal. There is a lower pole calculus measuring 3 x 2 x 3 mm. There are numerous simple cysts present, largest in the midpole measuring 2.1 x 1.2 x 3.2 cm. There are parapelvic cysts as well. BLADDER: Well distended and normal. Bilateral ureteral jets are demonstrated. Prevoid bladder volume is 170 mL. Postvoid bladder volume is 21 mL. Estimated prostate volume is 44 mL, moderately enlarged. There are dystrophic central calcifications. US/US retroperitoneal comp IMPRESSION: 1. There is a nonobstructing 3 mm calculus in the left kidney lower pole. 2. There are left renal parapelvic and cortical simple cysts. 3. Normal urinary bladder with postvoid residual of 21 mL. 4. Moderately enlarged prostate with estimated volume of 44 mL. 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 COMPARISON: CT abdomen and pelvi s 06/27/2018. TECHNIQUE: Real-time imaging of the kidneys and bladder. FINDINGS: RIGHT KIDNEY: 11.8 x 6.7 x 6.3 cm (SAG x AP x TRV). The kidney is normal in size, contour, and echogenicity. Renal cortical thickness is normal. No calculi o r focal parenchymal lesions. No hydronephrosis. LEFT KIDNEY: 12.5 x 6.6 x 6.1 cm (SAG x AP x TRV). The kidney is normal in size, contour, an d echogenicity. Renal cortical thickness is normal. There is a lower alta e calculus measuring 3 x 2 x 3 mm. There are numerous simple cyst s present, largest in the midpole measuring 2.1 x 1.2 x 3.2 cm. There are parapelvic cysts as well. BLADDER: Well disten ded and normal. Bilateral ureteral jets are demonstrated. Prevoi d bladder volume is 170 mL. Postvoid bladder volume is 21 mL. Estimated prostate volume is 44 mL, moderately enlarged. There are dystrophic central calcifications. US/US retroperitoneal comp IMPRESSION: 1. There is a nonobstructing 3 mm calculus in the left kidney lower pole. 2. There are left re nal parapelvic and cortical simple cysts. 3. Normal urinary bladder with postvoid residual of 21 mL. 4. Moderately enlarg ed prostate with estimated volume of 44 mL. Electronically raquel d by: Christoph Guerra MD 05/25/2025 02:35 PM [facility] Dictated By: Christoph Guerra MD Signed By: <Electronically signed by Christoph Guerra MD in OV> 05/25/25 1435 DD/ 1351 TD/TT: 05/25/25 1413 Buggy Ladle Tender: Reason For Referral No Information Medications Medication SIG (Take, Route, Frequency, Duration) Notes Start Date End Date Status Atorvastatin Calcium 40 MG TAKE ONE TABL ET BY MOUTH EVERY DAY for 90 Active Pantoprazole Sodium 40 MG TAKE ONE TABLE T BY MOUTH EVERY DAY for 30 Active Tadalafil 10 MG TAKE ONE TABLET BY M OUTH EVERY DAY NEEDED for 30 Active ProAir HFA 108 (90 Base) MCG/ACT 2 puffs as needed Inhalation every 4 hrs 09/11/2013 Active Losartan Potassium 100 MG TAKE ONE TABLE T BY MOUTH EVERY DAY for 90 Active Immunizations Vaccine Route Administration Date Status [...] W/U Status Risk Notes Problem Pure hypercholesterolemia (987147150) Pure hypercholesterolemia (E78.0) Active confirmed Problem 250292140 Dupuytren contra cture (M72.0) Active confirmed Problem Hydroureter (07822207) Hydroureter (N13.4) Active confirmed Problem Kidney stone (35453832) Kidney stone (N20.0) Active confirmed Problem 28948036 Essential hypertension (I10) Active confirmed Problem 902289945 Mild intermitten t asthma without complication (J45.20) Active confirmed Problem 099418231 Low HDL (under 4 0) (E78.6) Active confirmed Problem 805129310 Erectile dysfunc tion, unspecified erectile dysfunction type (N52.9) Active confirmed Problem 655503001 Mild intermitten t asthma with acute exacerbation (J45.21) Active confirmed Problem Leukocytosis (109946216) Elevated WBC count (D72.829) Active confirmed Problem 335691004 Elevated LDL cholesterol level (E78.00) Active confirmed Problem 350663557 Pure hypercholesterolemia (E78.00) Active confirmed Problem 0487406 Peyronie's disea se (N48.6) Active confirmed Problem 129471460 BMI 33.0-33.9,ad ult (Z68.33) Active confirmed Problem 458688190 History of colon resection (Z90.49) Active confirmed Vital Signs Blood pressure diastolic 64 mm Hg 03/22/2025 yana ght is down 5 pounds since 02-08-25 Height 73 in 03/22/2025 weight is down 5 pounds since 02-08-25 Blood pressure systolic 102 mm Hg 03/22/2025 weig ht is down 5 pounds since 02-08-25 Weight 230 lbs 03/22/2025 weight is down 5 pounds since 02-08-25 BMI 30.34 kg/m2 03/22/2025 weight is down 5 pounds since 02-08-25 Encounters Encounter Location Date Provider Diagnosis Terrance Heard MD [address] [place] [id number] 07/27/2024 Terrance Heard Pure hypercholestero lemia E78.00 Terrance Heard MD [address] [place] [address] [id number] 02/01/2025 Terrance Heard Blood tests for rout ine general physical examination Z00.00 ; Essential hypertension I10 ; Elevated WBC count D72.829 and Pure hypercholesterolemia E78.00 Terrance Heard MD [address] [place] [id number] 06/29/2024 Terrance Heard Unintended weight ga in R63.5 Terrance Heard MD [address] [place] [address] [id number] 08/03/2024 Terrance Heard Essential hypertensi on I10 and Pure hypercholesterolemia E78.00 Terrance Heard MD [address] [place] [address] [id number] 02/08/2025 Terrance Heard Annual physical exam Z00.00 ; Mild intermittent asthma without complication J45.20 ; Essential hypertension I10 ; Pure hypercholesterolemia E78.00 ; Colon cancer screening Z12.11 and Depression screening Z13.31 Terrance Heard MD [address] [place] [address] [id number] 03/22/2025 Terrance Heard Kidney stone N20.0 ; Hydroureter N13.4 and Eczema L30.9 Terrance Heard MD [address] [facility] [address] [place] [address] [id number] 06/29/2024 Terrance Heard MD [address] [place] [address] [id number] 07/03/2024 Terrance Heard MD [address] [place] [address] [id number] 03/09/2025 Terrance Heard Assessments Encounter Date Diagnosis (ICD Code) Assessment Notes Treatment Notes Treatment Clinical Notes Section Notes 07/27/2024 Pure hypercholesterolemia (ICD-10 - E78.00) 02/01/[address] ine general physical examination (ICD-10 - Z00.00) 06/29/2024 Unintended weight ga in (ICD-10 - R63.5) discussed the need for staying on the meds and the fact that there is no data on the group home meds.denny has been seeing people losing a large amt of weight on the meds and at the clinic in [facility] and wants a referral. have explained to him that there are no group home studies on the meds and that he will need to remain on therm to continue with a weight loss 08/03/2024 Essential hypertensi on (ICD-10 - I10) well controlled, will continue current regiment 02/08/2025 Annual physical exam (ICD-10 - Z00.00) labs reviewed and discussed with patient 02/08/2025 Mild intermittent asthma without complication (ICD-10 - J45.20) stable, will continue current regiment 03/22/2025 Kidney stone (ICD-10 - N20.0) pending dignostic testing, order faxed to [facility] 03/22/2025 Hydroureter (ICD-10 - N13.4) 02/01/2025 Essential hypertensi on (ICD-10 - I10) 08/03/2024 Pure hypercholesterolemia (ICD-10 - E78.00) doing well on meds, will continue current regiment 02/08/2025 Essential hypertensi on (ICD-10 - I10) doing well, will contiue current regiment 03/22/2025 Eczema (ICD-10 - L30.9) to u se triamcinolone 02/01/2025 Elevated WBC count (ICD-10 - D72.829) 02/08/2025 Pure hypercholesterolemia (ICD-10 - E78.00) stable, will continue current regiment 02/01/2025 Pure hypercholesterolemia (ICD-10 - E78.00) 02/08/2025 Colon cancer screeni ng (ICD-10 - Z12.11) guaaiac negative 02/08/2025 Depression screening (ICD-10 - Z13.31) negative screen Plan Of Treatment Pending Test Test Name Order Date Electrocardiogram (EKG) 11/27/2016 Electrocardiogram (EKG) 11/15/2015 CT ABD W&WO CONTRAST 04/05/2014 CT ABD & PELVIS NO CONTRAST 04/05/2014 RENAL US WITH BLADDER 03/22/2025 Liver Panel 07/27/2024 Next Appt Details Provider Name:Terrance guzmanr, 08/10/2025 07:00:00 AM, [address] [place] [address], [address] [place] [address], [phone], Provider Name:Terrance Perla ier, 08/17/2025 09:00:00 AM, [address] [place] [address], [address] [place] [address], [phone], Provider Name:Terrance Perla ier, 02/05/2026 07:00:00 AM, [address] [place] [address], [address] [place] [address], [phone], Provider Name:Terrance Perla ier, 02/12/2026 08:30:00 AM, [address] [place] [address], [address], [phone], Insurance Providers Payer Name Payer Address Payer Phone Subscriber Number Group Number Insured Name Patient Relationship to Insured Coverage Start Date Coverage End Date [employer] [address] [place], [place] [id number] [phone] [id number] Denny Zavala Self - patient is the insured Medical (General) History Medical History History ICD Code colonoscopy 2008 due in 10 y ears; colonoscopy done 10/24/18 w/ Dr York repeat 10 years
== END 2025-05-25 13:37 | disposition home or self-care (01) ==
LOC: HO.US 13:36
PROVIDERS: PCP Internal Medicine; Visit Provider Internal Medicine
DX: N20.0 Calculus of kidney (principal)
CPT/HCPCS: 76770

== ENCOUNTER → 2025-05-25 13:51 | Outpatient (BNV) | payer BC, SELFPAY | PROVIDERS: PCP Internal Medicine; Visit Provider Radiology Diagnostic Radiology | DX: N20.0 Calculus of kidney (principal); N28.1 Cyst of kidney, acquired; N40.0 Benign prostatic hyperplasia without lower urinary tract symptoms | CPT/HCPCS: 76770 ==